=== PATIENT | female | born 1950 | race American Indian/Alaskan Native ===

== ENCOUNTER 2016-08-03 16:25 | Emergency (ER) | payer MEDICARE ==
[2016-08-03 17:13] LABS: Basophils % (Auto) 0.5 % (0.0-1.8); Eosinophils % (Auto) 1.3 % (0.0-4.3); Hematocrit 41.2 % (30.3-42.9); Hemoglobin 13.3 gm/dl (10.1-14.3); Mean Corpuscular HGB Conc 32 % (30-34); Mean Corpuscular Hemoglobin 27 pg (28-32); Mean Corpuscular Volume 85 fl (79-97); Platelet Count 159 K/mm3 (140-440); Red Blood Count 4.85 M/mm3 (3.65-5.03); Red Cell Distribution Width 13.2 % (13.2-15.2); White Blood Count 7.1 K/mm3 (4.5-11.0)
--- NOTE | 2016-08-03 17:16 | Emergency Department Report ---
Chief Complaint: Chest Pain Stated Complaint: CHEST PAIN Time Seen by Provider: 08/03/16 17:14 - HPI History of Present Illness: Patient here reports that she has chest pain to her midsternal area that does radiate into the left side of her chest and she has difficulty breathing, dizziness and fatigue. Patient is a diabetic and she said her blood sugar at home was 165 this morning. She has a history of CABG in 2013 with pacemaker placement. She is also has a history of stroke with left-sided weakness and neuropathy. She has a history of bronchitis. Patient also reported that she has congestive heart failure but she does not know the percentage of her EF. She has a history of depression. Patient also has a history of cardiac stents. Chest pain is 9 out of 10. - ROS Review of Systems: All systems are negative unless stated in HPI above. - Exam Vital Signs: Vital Signs 08/03/16 16:42 Temperature 97.6 F Pulse Rate 75 Respiratory 18 Rate O2 Sat by Pulse 97 Oximetry Physical Exam: General: This is a 65-year-old female well-nourished well-developed nontoxic in appearance. CV: S1, S2. Blood pressure is stable. Regular rate and rhythm. Lungs:CTAB. Shortness of breath and exertion noted. MSE screening note: Focused history and physical exam performed. Due to findings the following was ordered:see [facility] ED Medical Decision Making - Lab Data Result diagrams: 08/03/16 16:56 - Medical Decision Making Medical decision making: Patient seen by provider in triage area. Appropriate protocol activated and patient to main ED to be seen by physician. ED Disposition for MSE Condition: Stable
[2016-08-03 17:35] VITALS: BP 131/76
[2016-08-03 17:40] LABS: Chloride 99.1 mmol/L (98-107); Sodium 138 mmol/L (137-145)
[2016-08-03 17:41] LABS: BUN/Creatinine Ratio 28.88; Blood Urea Nitrogen 26 mg/dL (7-17); Calcium 9.2 mg/dL (8.4-10.2); Carbon Dioxide 25 mmol/L (22-30); Glucose 143 mg/dL (65-100)
[2016-08-03 17:43] LABS: Creatine Kinase MB 4.3 ng/mL (0.0-4.0)
[2016-08-03 18:14] LABS: Anion Gap 19 mmol/L
[2016-08-03 21:32] LABS: Bacteria,Urine 1+ /HPF (Negative); Bilirubin,Urine NEG (Negative); Blood,Urine NEG (Negative); Ketones,Urine NEG (Negative); Leukocyte Esterase,Urine NEG (Negative); Mucus,Urine FEW /HPF; Nitrite,Urine NEG (Negative); Protein,Urine <15 mg/dL mg/dL (Negative); RBC,Urine < 1.0 /HPF (0.0-6.0); Urobilinogen,Urine < 2.0 mg/dL (<2.0)
--- NOTE | 2016-08-04 00:11 | Admit Criteria Form ---
Admission Criteria Documentation: CARDIOLOGY GRG Clinical Indications for Admission to Inpatient Care ( Place 'X' for any and all applicable criteria): Hospital admission is needed for appropriate care of the patient because of ANY ONE of the following (1): [ ] I. Hemodynamic instability as indicated by ALL of the following (1)(2)(3) (4)(5) [ ]a) Vital signs or other findings not as expected for chronic patient condition or baseline [ ]b) Instability indicated by ANY ONE of the following: [ ]i) Hypotension [ ]ii) Symptomatic Tachycardia unresponsive to treatment ( e.g., analgesia, fluids, sedation as indicated) [ ]iii) Inadequate perfusion indicated by ANY ONE of the following: [ ] 1) Lactic acidosis (> 2 mmol/L) [ ] 2) New abnormal capillary refill (> 3 seconds) [ ] 3) Reduced urine output [ ] 4) New altered mental status [ ]iv) Orthostatic vital sign changes unresponsive to treatment (e.g., fluids) [ ]v) IV inotropic or vasopressor medication required to maintain adequate blood pressure or perfusion [ ] II. Severe heart failure as indicated by ANY ONE of the following(17)(18) [ ]a) Respiratory distress [ ]b) Hypotension [ ]c) Anasarca (refractory to outpatient therapy) [ ]d) Cardiac arrhythmias of immediate concern [ ]e) Myocardial ischemia [ ] III. Cardiac arrhythmias or findings of immediate concern indicated by ANY ONE of the following (19)(20): [ ] a) Heart rhythms that are inherently dangerous or unstable indicated by ANY ONE of the following (21)(22)(23): [ ] i) Resuscitated ventricular fibrillation or cardiac arrest [ ] ii) Ventricular escape rhythm [ ] iii) Sustained ventricular tachycardia (30 seconds or more of ventricular rhythm at greater than 100 beats per minute) [ ] iv) Nonsustained ventricular tachycardia and ANY ONE of the following: [ ] 1) Suspected cardiac ischemia as cause or consequence of ventricular tachycardia [ ] 2) In setting of acute myocarditis [ ] b) Unstable cardiac conduction defects indicated by ANY ONE of the following(23)(24)(25) [ ] i) Type II second-degree atrioventricular block [ ]ii) Third-degree atrioventricular block [ ]iii) New-onset left bundle branch block with suspected myocardial ischemia [ ]c) Any heart rhythm and ANY ONE of the following (21)(22)(26)(27) (28) [ ] i) Continuous long-term ECG monitoring needed (e.g., initiation of drug requiring monitoring for more than 24 hours) [ ] ii) Patient has automatic implanted cardioverter defibrillator that is repeatedly firing, malfunctioning, or in need of immediate adjustment of settings beyond the scope of ambulatory or observation care [ ]d) Heart rhythms of concern due to ANY ONE of the following: [ ] i) Hypotension [ ] ii) Respiratory distress [ ] iii) Association with other significant symptoms (e.g., bradycardia with syncope or ongoing dizziness, supraventricular tachycardia with chest pain (14)(15)(17) [ ] IV. Monitoring for cardiac contusion beyond the scope of observation care needed [A](30)(31)(32) [ ] V. Surgical or device complication (e.g., valve replacement complication , pacemaker dysfunction) (35)(41)(44)(45)(46) [ ] . Inpatient palliative care needed. [B](49) Also use Inpatient Palliative Care Criteria [ ] VII. Nonbacterial thrombotic (marantic) endocarditis (36)(43)(47)(48) [X ] VIII. Cardiology condition, symptom, or finding for which emergency and observation care has failed or are not considered appropriate. [ ] IX. Acute valvular disease requiring inpatient as indicated by ANY ONE of the following (41) [ ]a) Acute valvular regurgitation (42) [ ]b) Noninfectious valvulitis (43) [ ]c) Obstructive valve thrombosis [ ]d) Paravalvular leak [ ]e) Other significant valvular disorder remaining after emergency or observation level of care (as appropriate) [ ]X. Pericardial disease requiring inpatient treatment as indicated by ANY ONE of the following (33)(34)(35)(36)(37) [ ]a) Suspected tamponade (38)(39)(40) [ ]b) Hemopericardium [ ]c) Other significant pericardial disorder remaining after emergency or observation level of care (as appropriate) [ ] XI. Cardiac ischemia beyond scope of emergency and observation care. [ ] XII. Hypertension requiring inpatient treatment as indicated by ANY ONE of the following (6)(7)(8) [ ]a) SBP greater than 220 mm Hg or DBP greater than 120 mmHg despite treatment [ ]b) SBP greater than 140 mm Hg or DBP greater than 100 mm Hg with evidence of acute end organ damage as indicated by ANY ONE of the following [ ] i) Altered mental status [ ] ii) Acute renal failure as indicated by new onset of ANY ONE of the following (9)(10)(11)(12)(13) [ ]1) 3-fold rise in serum creatinine from baseline [ ]2) Serum creatinine greater than 4 mg/dL ( 354 micromoles/L) with acute rise greater than 0.5 mg/dL (44.2 micromoles/L) [ ]3) Reduction of more than 75% in estimated glomerular filtration rate from baseline [ ]4) Estimated glomerular filtration rate less than 35 mL/min/1.73m2 (0.59 mL/sec/1.73m2) in child up to 18 years of age [ ]5) Cessation of urine output indicated by ALL of the following [ ]A. Adequate volume status [ ]B. Inadequate urine output as indicated by ANY ONE of the following [ ]a. Urine output less than 0.3 mL/kg/hr for 24 hours [ ]b. Anuria (urine output less than 0.1 mL/kg/hr) for 12 hours [ ] iii) Aortic dissection [ ] iv) Myocardial Ischemia [ ] v) Left ventricular heart failure [ ]vi) Retinal Hemorrhage [ ]vii) Other significant finding [ ]c) Hypertension in child requiring inpatient treatment as indicated by ALL of the following(14)(15)(16) [ ] i) Outpatient treatment not effective, not available, or not appropriate [ ]ii) SBP or DBP greater than 95th percentile for age [ ]iii) Evidence of acute end organ damage as indicated by ANY ONE of the following [ ]1) Altered mental status [ ]2) Acute renal failure as indicated by new onset of ANY ONE of the following(9)(10)(11)(12)(13) [ ]A. 3-fold rise in serum creatinine from baseline [ ]B. Serum creatinine greater than 4 mg/dL (354 micromoles/L) with acute rise greater than 0.5 mg/dL (44.2 micromoles/L) [ ]C. Reduction of more than 75% in estimated glomerular filtration rate from baseline [ ]D. Estimated glomerular filtration rate less than 35 mL/min/1.73m2 (0.59 mL/sec/1.73m2) in child up to 18 years of age [ ]E. Cessation of urine output indicated by ALL of the following [ ]a. Adequate volume status [ ]b. Inadequate urine output as indicated by ANY ONE of the following [ ]i) Urine output less than 0.3 mL/kg/hr for 24 hours [ ]ii) Anuria ( urine output less than 0.1 mL/kg/hr) for 12 hours [ ]3) Severe headache [ ]4) Visual disturbance [ ]5) Retinal hemorrhage [ ]6) Other significant finding [ ]XIII. Complications of transplanted heart indicated by ANY ONE of the following(61): [ ]a) Acute graft rejection requiring inpatient management (eg, intravenous immunosuppression)(62)(63) [ ]b) Acute graft heart failure indicated by ANY ONE of the following(64): [ ]i) Hemodynamic instability [ ]ii) Cardiac arrhythmias of immediate concern [ ]iii) Pulmonary edema that is very severe (eg, mechanical ventilation needed, imminent or likely, need for 100% oxygen to keep oxygen saturation above 90%) [ ]iv) Pulmonary edema that is persistent as indicated by ALL of the following: [ ]1) New need for oxygen therapy to keep oxygen saturation above 90% (or increased FiO2 need from baseline) [ ]2) Has not improved sufficiently with emergency department or observation care IV diuretics or other heart failure treatments[E] [ ]v) Altered mental status that is severe or persistent [ ]vi) Increased creatinine (new on laboratory test) with reduction of more than 50% in estimated glomerular filtration rate from baseline [ ]vii) Progressively (ongoing) rising creatinine (known from past laboratory test) with reduction of more than 25% in estimated glomerular filtration rate from baseline [ ]viii) Acute renal failure [ ]ix) Acute peripheral ischemia (eg, examination shows pulseless, cool, mottled, or cyanotic extremity) [ ]x) Pulmonary artery catheter monitoring needed [ ]xi) Other sign or symptom of heart failure requiring inpatient treatment (ie, too severe or not responsive to outpatient and observation care treatment) [ ]c) Infection requiring inpatient management (eg, Hemodynamic instability, need for intravenous antimicrobial treatment)(66)(67)(68)(69)(70) [ ]d) Cardiac allograft vasculopathy requiring inpatient management ( eg evidence of cardiac ischemia)(71) [ ]e) Other complication of transplanted heart (eg, stroke, severe pulmonary hypertension, severe valvular dysfunction) requiring inpatient management(72) The original [facility] content created by [employer] has been revised. The portions of the content which have been revised are identified through the use of italic text or in bold, and [facility] has neither reviewed nor approved the modified material. All other unmodified content is copyright [email or web address]. Please see references footnoted in the original [email or web address] edition 2016 Admission Criteria Met: Pending
--- NOTE | 2016-08-04 07:52 | ED Elopement Review ---
ED Pt Elopement review - Results review Lab results: Laboratory Tests 08/03/16 08/03/16 08/03/16 16:56 16:56 16:56 WBC 7.1 RBC 4.85 Hgb 13.3 Hct 41.2 MCV 85 MCH 27 L MCHC 32 RDW 13.2 Plt Count 159 Lymph % (Auto) 34.1 [place] % (Auto) 9.7 H Eos % (Auto) 1.3 Baso % (Auto) 0.5 Lymph # 2.4 [place] # 0.7 Eos # 0.1 Baso # 0.0 Seg Neutrophils % 54.4 Seg Neutrophils # 3.9 Sodium 138 Potassium 5.0 Chloride 99.1 Carbon Dioxide 25 Anion Gap 19 BUN 26 H Creatinine 0.9 Estimated GFR > 60 BUN/Creatinine Ratio 28.88 Glucose 143 H Calcium 9.2 Total Creatine Kinase 113 CK-MB (CK-2) 4.3 H CK-MB (CK-2) Rel Index 3.8 Troponin T < 0.010 NT-Pro-B Natriuret Pep Urine Color Urine Turbidity Urine pH Ur Specific [place] Urine Protein Urine Glucose (UA) Urine Ketones Urine Blood Urine Nitrite Urine Bilirubin Urine Urobilinogen Ur Leukocyte Esterase Urine WBC (Auto) Urine RBC (Auto) U Epithel Cells (Auto) Urine Bacteria (Auto) Hyaline Casts Urine Mucus 08/03/16 08/03/16 08/03/16 17:36 19:44 20:56 WBC RBC Hgb Hct MCV MCH MCHC RDW Plt Count Lymph % (Auto) [place] % (Auto) Eos % (Auto) Baso % (Auto) Lymph # [place] # Eos # Baso # Seg Neutrophils % Seg Neutrophils # Sodium Potassium Chloride Carbon Dioxide Anion Gap BUN Creatinine Estimated GFR BUN/Creatinine Ratio Glucose Calcium Total Creatine Kinase CK-MB (CK-2) CK-MB (CK-2) Rel Index Troponin T < 0.010 NT-Pro-B Natriuret Pep 173.6 Urine Color Yellow Urine Turbidity Clear Urine pH 5.0 Ur Specific [place] 1.010 Urine Protein <15 mg/dl Urine Glucose (UA) Neg Urine Ketones Neg Urine Blood Neg Urine Nitrite Neg Urine Bilirubin Neg Urine Urobilinogen < 2.0 Ur Leukocyte Esterase Neg Urine WBC (Auto) 1.0 Urine RBC (Auto) < 1.0 U Epithel Cells (Auto) 3.0 Urine Bacteria (Auto) 1+ Hyaline Casts 14 Urine Mucus Few - Call Back decision Pt Call Back Decision: Pt to F/U with PMD
--- NOTE | 2016-08-04 08:16 | XRay Report ---
Chest 2 views. Findings: The heart and lungs reveal no acute findings or interval changes since January 19, 2016. A cardiac pacemaker is again noted unchanged. No pleural fluid is seen. Impression: No acute findings.
== END 2016-08-03 20:16 | disposition left against medical advice (07) ==
LOC: ED 16:25
DX: R07.89 Other chest pain (principal); R06.00 Dyspnea, unspecified; R42 Dizziness and giddiness; R53.83 Other fatigue; F32.9 Major depressive disorder, single episode, unspecified; E11.9 Type 2 diabetes mellitus without complications; I50.9 Heart failure, unspecified; Z53.21 Procedure and treatment not carried out due to patient leaving prior to being seen by health care provider
CPT/HCPCS: 36415; 71020; 80048; 81001; 82550; 82553; 83880; 84484; 85025; 93005; 93010

== ENCOUNTER 2016-08-18 12:49 | Outpatient (CLI) | payer MEDICARE ==
--- NOTE | 2016-08-18 14:06 | Mammography Report ---
Bilateral mammogram: No previous studies available. CAD study utilized. Findings: Predominance of adipose tissue bilaterally. No distinct mass. Benign calcifications bilaterally. Normal axilla. Focal asymmetry upper outer right breast. Impression: Focal asymmetry upper outer right breast. Comparison with previous studies is advised. If previous studies are not available spot magnification views and sonographic examination recommended for further evaluation.
== END 2016-08-18 12:50 | disposition home or self-care (01) ==
LOC: MAMMO 12:49
PROVIDERS: ATTEND Internal Medicine
DX: Z12.31 Encounter for screening mammogram for malignant neoplasm of breast (principal)
CPT/HCPCS: 77067; G0202

== ENCOUNTER 2016-10-07 01:33 | Inpatient (IN) | payer MEDICARE ==
[2016-10-07] MEDS ORDERED: TYLENOL PO ONE (03:40)
--- NOTE | 2016-10-07 03:59 | Emergency Department Report ---
HPI - HPI HPI: The patient is a 66-year-old female with a history of diabetes, CHF, bilateral lower leg wounds, and who presents for evaluation of generalized weakness and headache. The patient reports that she fail at approximately 7 PM earlier tonight, 8 hours prior to my evaluation. She complains of generalized aching headache since her fall, 03/05 in severity, exacerbated with movement of the head. She also complains of generalized weakness and lightheadedness for the past 2 days, exacerbated with standing up and activity, improved with rest, moderate in severity. The patient has a tertiary complaint of worsening shortness of breath from baseline also for the past one week, moderate in severity, exacerbated with physical activity, and associated with bilateral lower leg swelling. The patient denies fever, head injury, headache, neck pain, neck stiffness, vision or hearing changes, smell or taste changes, paresthesias , facial drooping, slurred speech, seizure-like activity, urine or bowel incontinence or retention, or other focal neurological deficit. <SANDRA ORELLANA - Last Filed: 10/07/16 05:27> <ISMA CHRISTENSEN - Last Filed: 10/07/16 07:14> - General Chief Complaint: Dizziness Time Seen by Provider: 10/07/16 03:39 ED Past Medical Hx - Past Medical History Previous Medical History?: Yes Hx Hypertension: Yes Hx CVA: Yes (2009,2010 ischemic) Hx Heart Attack/AMI: Yes (CABG 2012,[employer]) Hx Diabetes: Yes Hx Psychiatric Treatment: Yes (depression) Hx Asthma: Yes (bronchitis) Additional medical history: left-sided weakness,Neuropathy - Surgical History Hx Open Heart Surgery: Yes Hx Pacemaker: Yes Additional Surgical History: hysterectomy, stents - Social History Smoking Status: Current Every Day Smoker Substance Use Type: Alcohol <SANDRA ORELLANA - Last Filed: 10/07/16 05:27> <ISMA CHRISTENSEN - Last Filed: 10/07/16 07:14> - Medications Home Medications: Home Medications Medication Instructions Recorded Confirmed Last Taken Type Clindamycin [Clindamycin CAP] 300 mg PO Q8H #30 cap 01/19/16 Unknown Rx HYDROcodone/APAP 5-325 [Atlas 1 each PO Q6HR PRN #7 tablet 01/19/16 Unknown Rx 5/325] Linagliptin [Tradjenta] 5 mg PO QDAY 01/19/16 01/19/16 01/18/16 History Lisinopril [Zestril] 20 mg PO QDAY 01/19/16 01/19/16 01/18/16 History Lisinopril/Hydrochlorothiazide 1 tab PO QDAY #30 tablet 01/19/16 Unknown Rx [Zestoretic 10-12.5 mg] ED Review of Systems ROS: Stated complaint: WEAK, DIZZY Other details as noted in HPI Constitutional: denies: fever; reports weakness and lightheadedness ENT: denies: throat or neck pain Respiratory: denies: cough reports shortness of breath Cardiovascular: denies: chest pain Endocrine: denies unexplained weight loss or gain Gastrointestinal: denies: abdominal pain, nausea Genitourinary: denies: dysuria Musculoskeletal: denies: leg swelling Skin: denies: rash Neurological: reports: headache Hematological/Lymphatic: denies: easy bleeding or easy bruising Psych: denies sadness or hopelessness <SANDRA ORELLANA - Last Filed: 10/07/16 05:27> ROS: Stated complaint: WEAK, DIZZY Other details as noted in HPI <ISMA CHRISTENSEN - Last Filed: 10/07/16 07:14> Physical Exam - Physical Exam Vital Signs: Vital Signs 10/07/16 10/07/16 01:49 01:53 Temperature 98 F 98.8 F Pulse Rate 75 71 Respiratory 18 Rate Blood Pressure 138/75 Blood Pressure 154/76 [Right] O2 Sat by Pulse 100 100 Oximetry Physical Exam: General: well-nourished, well-developed, no acute distress Head: Normocephalic, atraumatic Eyes: normal sclera, EOMI, PERRL, no nystagmus ENT: Mucous membranes are pale and dry Neck: No neck stiffness, no cervical adenopathy Respiratory: Breath sounds equal bilaterally, no wheezing, rales, or rhonchi Cardio: S1 and S2 present, no murmurs, rubs, gallops, capillary refill is delayed Abdomen: Normoactive bowel sounds, soft abdomen, no tenderness Chest WALL/Back: No tenderness to palpation of the chest wall, no CVA tenderness with percussion Musc: 1+ pitting edema in the bilateral lower extremities, left ankle edema worse compared to right ankle (baseline for patient per daughter present in room ) Skin: No rash Neuro: Alert oriented 3, no facial drooping, CN II through XII grossly intact, normal speech, no pronator drift, no obvious gross sensation or motor deficit in the arms or legs, reflexes 2+ symmetric on DTR testing, no obvious coordination deficit with finger to nose testing, no obvious neuro deficits appreciated Psych: Normal affect <SADNRA ORELLANA P - Last Filed: 10/07/16 05:27> - Physical Exam Vital Signs: Vital Signs 10/07/16 10/07/16 10/07/16 01:49 01:53 04:53 Temperature 98 F 98.8 F 98 F Pulse Rate 75 71 65 Respiratory 18 18 Rate Blood Pressure 138/75 Blood Pressure 154/76 135/86 [Right] O2 Sat by Pulse 100 100 97 Oximetry 10/07/16 06:12 Temperature Pulse Rate Respiratory Rate Blood Pressure Blood Pressure 152/66 [Right] O2 Sat by Pulse Oximetry <ISMA CHRISTENSEN - Last Filed: 10/07/16 07:14> ED Course Vital Signs 10/07/16 10/07/16 01:49 01:53 Temperature 98 F 98.8 F Pulse Rate 75 71 Respiratory 18 Rate Blood Pressure 138/75 Blood Pressure 154/76 [Right] O2 Sat by Pulse 100 100 Oximetry <SANDRA ORELLANA P - Last Filed: 10/07/16 05:27> Vital Signs 10/07/16 10/07/16 10/07/16 01:49 01:53 04:53 Temperature 98 F 98.8 F 98 F Pulse Rate 75 71 65 Respiratory 18 18 Rate Blood Pressure 138/75 Blood Pressure 154/76 135/86 [Right] O2 Sat by Pulse 100 100 97 Oximetry 10/07/16 06:12 Temperature Pulse Rate Respiratory Rate Blood Pressure Blood Pressure 152/66 [Right] O2 Sat by Pulse Oximetry <ISMA CHRISTENSEN - Last Filed: 10/07/16 07:14> ED Medical Decision Making - Lab Data Result diagrams: 10/07/16 03:44 10/07/16 03:44 - Medical Decision Making The patient was seen and examined by myself. The patient is placed on a monitor technician and continuous pulse ox. On initial evaluation, the patient was found to be in no distress. Evaluation orders were placed. The patient is given 1 L normal saline fluid bolus for treatment of dehydration. The patient is given a tablet of Tylenol for headache. EKG is unremarkable. X-ray of the chest is negative. Lab results are grossly unrevealing. Urinalysis is pending. CT scan the head is pending. The patient signed out to the oncoming morning shift physician Dr. Dick, who agrees to follow-up on UA result, and CT scan of the head, and arrange for ultimate disposition. <SANDRA ORELLANA - Last Filed: 10/07/16 05:27> - Lab Data Result diagrams: 10/07/16 03:44 10/07/16 03:44 <ISMA CHRISTENSEN - Last Filed: 10/07/16 07:14> Critical care attestation.: If time is entered above; I have spent that time in minutes in the direct care of this critically ill patient, excluding procedure time. <SANDRA ORELLANA - Last Filed: 10/07/16 05:27> Critical care attestation.: If time is entered above; I have spent that time in minutes in the direct care of this critically ill patient, excluding procedure time. <ISMA CHRISTENSEN - Last Filed: 10/07/16 07:14> ED Disposition Time of Disposition: 04:02 <SANDRA ORELLANA - Last Filed: 10/07/16 05:27> Is pt being admited?: Yes Does the pt Need Aspirin: Yes Time of Disposition: 07:14 (admit to the hospitalists) <ISMA CHRISTENSEN - Last Filed: 10/07/16 07:14> Clinical Impression: Left hemiparesis, Dehydration Disposition: OP ADMITTED IP TO THIS HOSP Condition: Fair Referrals: PRIMARY CARE,MD [Primary Care Provider] - 3-5 Days
[2016-10-07 04:16] LABS: Basophils % (Auto) 0.4 % (0.0-1.8); Eosinophils % (Auto) 1.2 % (0.0-4.3); Hematocrit 40.5 % (30.3-42.9); Hemoglobin 12.9 gm/dl (10.1-14.3); Mean Corpuscular HGB Conc 32 % (30-34); Mean Corpuscular Hemoglobin 27 pg (28-32); Mean Corpuscular Volume 84 fl (79-97); Platelet Count 151 K/mm3 (140-440); Red Cell Distribution Width 13.7 % (13.2-15.2); White Blood Count 8.2 K/mm3 (4.5-11.0)
[2016-10-07 04:27] LABS: Alanine Aminotransferase 42 units/L (7-56); Albumin 3.6 g/dL (3.9-5); Albumin/Globulin Ratio 0.9 %; Alkaline Phosphatase 154 units/L (35-129); Anion Gap 16 mmol/L; BUN/Creatinine Ratio 29.09; Bilirubin,Total 0.2 mg/dL (0.1-1.2); Blood Urea Nitrogen 32 mg/dL (7-17); Carbon Dioxide 26 mmol/L (22-30); Chloride 102.8 mmol/L (98-107); Glucose 101 mg/dL (65-100); Lipase 49 units/L (13-60); Potassium 4.2 mmol/L (3.6-5.0); Sodium 141 mmol/L (137-145); Total Protein 7.5 g/dL (6.3-8.2)
[2016-10-07] MEDS ORDERED: NACL 0.9% 1000 ML 1,000 ML IV ONE (05:03)
[2016-10-07 05:54] LABS: Bilirubin,Urine NEG (Negative); Blood,Urine NEG (Negative); Ketones,Urine NEG (Negative); Leukocyte Esterase,Urine NEG (Negative); Mucus,Urine FEW /HPF; Nitrite,Urine NEG (Negative); Protein,Urine <15 mg/dL mg/dL (Negative); RBC,Urine < 1.0 /HPF (0.0-6.0); Urobilinogen,Urine < 2.0 mg/dL (<2.0); WBC,Urine < 1.0 /HPF (0.0-6.0)
--- NOTE | 2016-10-07 06:38 | Cat Scan Report ---
FINAL REPORT PROCEDURE: CT HEAD/BRAIN WO CON TECHNIQUE: Computerized tomography of the head was performed without contrast material. HISTORY: headache COMPARISON: 12/20/2015 FINDINGS: Skull and scalp: Normal. Paranasal sinuses: Normal. Ventricles and subarachnoid spaces: There is moderate central and cortical atrophy. There is no hydrocephalus.. Cerebrum: No evidence of hemorrhage, acute infarction or mass . Cerebellum and brainstem: No evidence of hemorrhage, acute infarction or mass. There is chronic deep white matter ischemic gliosis. Vasculature: Normal. Comments: None. IMPRESSION: There are chronic involutional changes. There is no hemorrhage, edema, mass, mass effect or midline shift.
--- NOTE | 2016-10-07 07:13 | Emergency Department Report ---
Blank Doc - Documentation Documentation: Patient signed out to me by Dr. Villanueva. CT head and urinalysis showed no acute process. Upon evaluation of the patient patient's daughter states for the last several days patient has been unable to walk. Normally the patient walks with a cane or a walker. Now patient has to be held up. Patient states she thinks she may have had a worsening of her left-sided weakness from her previous stroke. Patient has history of congestive heart failure and has a defibrillator in. Patient has had left leg swelling for the last several days as well. According to her daughter this usually subsides after day or 2 but has not subsided. Attempts by myself with the aid of a nurse to stand the patient was unsuccessful. Patient unable to lift her left leg off the bed. We'll admit the patient to the hospitalist service and obtain a Doppler of her left lower extremity. Concerned that she may have had another CVA.
[2016-10-07] MEDS ORDERED: ASPIRIN PO ONE (07:14)
--- NOTE | 2016-10-07 07:26 | XRay Report ---
AP CHEST: HISTORY: chest pain Compared to 08/03/16. The lungs are clear. Normal heart and mediastinal structures. Sternal fixation device and 2-lead pacemaker device are unchanged. IMPRESSION: No acute cardiopulmonary process.
--- NOTE | 2016-10-07 07:36 | Admit Criteria Form ---
Admission Criteria Documentation: NEUROLOGY GRG Clinical Indications for Admission to Inpatient Care (Place ' X' for any and all applicable criteria): Hospital admission is needed for appropriate care of the patient because of ANY ONE of the following: [ ]I. New-onset or worsening altered mental status remaining after emergency or observation level care (as appropriate) (9)(10)(11) [ ]II. Severe PASSENGER RELATIONS REPRESENTATIVE infections or inflammatory conditions, including ANY ONE of the following(1)(2)(3): [ ]a) Intracranial abscess [ ]b) Spinal abscess or myelitis [ ]c) Tuberculous or other nonbacterial, nonviral PASSENGER RELATIONS REPRESENTATIVE infection(8) [ ]III. Encephalitis(1)(2)(3) [ ]IV. Status epilepticus or repetitive seizures not controlled with emergent treatment [A] (7)(8) [ ]V. Transient alteration in consciousness with high-risk etiology; examples include (12)(13): [ ]a) Cardiovascular source [ ]b) Cataplexy [ ]. Cerebral aneurysm requiring ANY ONE of the following(14): [ ]a) IV antihypertensives or vasoactive agents [ ]b) Sedation and analgesia for suspected leak [ ]c) Need for external ventricular drainage and cerebral perfusion pressure monitoring [ ]d) Emergent evaluation to determine need for surgical clipping or endovascular coiling by interventional radiology. If surgery is required ( Also use Craniotomy, Supratentorial, for Surgery of Bleeding Intracranial Aneurysm (for bleeding aneurysm) or Craniotomy, Supratentorial (for nonbleeding aneurysm) as appropriate. [ ]VII. Altered mental status that is severe or persistent(16) [ ]VIII New-onset severe neurologic findings requiring inpatient care; examples include: [ ]a) Papilledema [ ]b) Cerebral edema [ ]c) Mass effect on imaging [X]IX. New-onset severe neurologic symptom requiring inpatient care indicated by ANY ONE of the following: [ ]a) Aphasia(15) [ ]b) Weakness (grade 3 or less) [ ]c) Paralysis (eg, hemiplegia) [ ]d) Spasticity(16) [ ]e) Ataxia(17) [ ]f) Amnesia(18) [ ]g) Involuntary movements(19) [ ]h) Vertigo [X]i) Other severe neurologic symptom not treatable at alternative level of care (eg, observation care) [ ]X. Guillain-[place] syndrome(20) [ ]XI. Myasthenia gravis crisis or inpatient monitoring need as indicated by ANY ONE of the following(21): [ ]a) Inadequate airway protection [ ]b) Respiratory insufficiency requiring intubation or inpatient. monitoring [ ]c) Progressive dysphagia with failure to thrive [ ]d) Intensive treatment (eg, course of plasmapheresis) with inadequate outpatient situation to monitor patients status [ ]XII. Multiple sclerosis or other acute demyelinating disease requiring inpatient care as indicated by ANY ONE of the following (22)(23): [ ]a) Acute severe deterioration requiring inpatient treatment (eg, IV steroids, plasmapheresis, close observation) [ ]b) Acute complication requiring inpatient care (eg, sepsis, severe decubitus, aspiration) [ ]XIII. Intracranial hypertension (eg, pseudotumor cerebri) requiring inpatient care (eg, acute visual loss, inadequate oral intake) (24) [ ]XIV.Parkinson disease requiring inpatient care (Also use Optimal Recovery Care Criteria or General Recovery Criteria as appropriate) indicated by ANY ONE of the following(25): [ ]a) Infection (eg, aspiration pneumonia) not treatable at alternative level of care [ ]b) Volume depletion not responsive to emergency and observation care treatment (as appropriate) [ ]c) Life-threatening agitation or psychotic behavior not treatable on emergency, observation care, or alternative level (eg, residential) basis [ ]d) Severe medication withdrawal effects (eg, freezing, neuroleptic malignant syndrome) not responsive to emergency and observation care treatment (as appropriate) [ ]e) Other severe manifestation not treatable at alternative level of care [ ]XV.Amyotrophic lateral sclerosis with inpatient care needs as indicated by ANY ONE of the following(26): [ ]a) Acute complications requiring inpatient care (Use Optimal Recovery Care Criteria or General Recovery Criteria as appropriate); examples include: [ ]i) Aspiration pneumonia [ ]ii) Sepsis [ ]b) Dehydration or hypovolemia (not responsive to emergency and observation care treatment as appropriate) AND artificial support desired [ ]c) Inadequate airway protection AND artificial support desired [ ]d) Severe ventilatory insufficiency AND artificial support desired [ ]XVI.Severe myopathy, neuropathy, or other neuromuscular disease as indicated by ANY ONE of the following: [ ]a) New-onset severe diffuse weakness (eg, strength 3/5 or less) [ ]b) Severe dysphagia [ ]c) Dyspnea at rest or with minimal exertion (new) [ ]d) Inadequate airway protection [ ]e) Inadequate ventilation as indicated by ANY ONE of the following : [ ]i) Partial pressure of carbon dioxide greater than 44 mm Hg (5.9 kPa) (new) [ ]ii) Reduced peak expiratory flow rate (new) [ ]iii) Vital capacity less than 50% of predicted ( less than 15 mL/kg) [ ]iv) Peak inspiratory force less negative than -30 cm H20 (-2942 Pa) [ ]XVII.Complications of congenital or degenerative disease (eg, infection, seizures, dehydration, injury) not responsive to emergency and observation care treatment (as appropriate ) [C](16)(29)(30) [ ]XVIII.Suspected or confirmed nerve or muscle toxic injury, including ANY ONE of the following: [ ]a) Rhabdomyolysis(31) [ ]b) Botulism(32) [ ]c) Other severe toxin-induced sign or symptom [ ]XIX. Neurologic trauma requiring inpatient treatment (medical) indicated by ANY ONE of the following(33)(34): [ ]a) Vital signs or neurologic signs more frequently than every 4 hours [ ]b) Hyperosmolar therapy [ ]c) Respiratory monitoring [ ]d) Intracranial pressure monitoring and treatment [ ]e) Stabilization and immobilization device placement (eg, braces, body jacket) [ ]f) Intubation & mechanical ventilation for airway protection or therapeutic hyperventilation [ ]g) Other treatment or monitoring needed that requires inpatient level of care [ ]XX.Complications of neurologic devices (eg, ventricular shunt, neurostimulator) requiring ANY ONE of the following(35)(36): [ ]a) IV antibiotics with monitoring while awaiting culture results [ ]b) Monitoring for hydrocephalus [ ]XXI Vasculitis with ANY ONE of the following(4)(5): [ ]a) Altered mental status [ ]b) Psychosis [ ]c) Seizures [ ]XXII. Neurology condition and ALL of the following: [ ]a) Symptom or finding for which emergency and observation care have failed or are not considered appropriate (Use General Criteria: Observation Care as appropriate) [ ]b) Presence of ANY ONE of the following: [ ]i) A General Admission Criteria [ ]ii A Pediatric General Admission Criteria The original [facility] content created by [facility] has been revised. The portions of the content which have been revised are identified through the use of italic text or in bold, and [facility] has neither reviewed nor approved the modified material. All other unmodified content is copyright [facility] Please see references footnoted in the original [facility] edition 2016 Admission Criteria Met: Yes
[2016-10-07] MEDS ORDERED: PROVENTIL IH PRN (07:41)
[2016-10-07] MEDS ORDERED: MILK OF MAGNESIA PO PRN (07:41)
[2016-10-07] MEDS ORDERED: TYLENOL PO PRN ×2 (07:41)
[2016-10-07] MEDS ORDERED: PHENERGAN PR PRN (07:41)
[2016-10-07] MEDS ORDERED: DULCOLAX PR PRN (07:41)
[2016-10-07] MEDS ORDERED: SODIUM CHLORIDE FLUSH SYRINGE 10 ML IV PRN (07:41)
[2016-10-07] MEDS ORDERED: D50W (25GM) IV PRN (07:41)
[2016-10-07] MEDS ORDERED: ZOFRAN IV PRN (07:41)
[2016-10-07] MEDS ORDERED: ASPIRIN PO SCH ×2 (10:00→14:20)
[2016-10-07] MEDS: DUONEB 0.5 MG-3 MG/3 ML SOLN IH SCH ×3 (10:40→19:55)
[2016-10-07] MEDS: PEPCID IV SCH ×2 (11:23→22:33)
[2016-10-07] MEDS: HEPARIN SUB-Q SCH ×2 (11:28→22:33)
--- NOTE | 2016-10-07 13:04 | Consultation ---
History of Present Illness Consult date: 10/07/16 Requesting physician: VELMA BARBOSA Reason for Consult: ? TIA/stroke Chief complaint: falls History of present illness: 66 YO F Hx stroke x 2 in 2009 and 2013 residual L hemiparesis requiring walker who p/w falls in last 2 days. She affirms greater baseline L sided but also diffuse generalized weakness. Sx are constant.There are no clear aggravating, relieving or temporal factors. Severity was enough to cause her inability to transfer from bed to walker safely-causing falls. Past History Past Medical History: diabetes, hypertension, stroke Past Surgical History: No surgical history Social history: no significant social history, single, lives with family. denies: smoking, alcohol abuse, prescription drug abuse, IV drug use Family history: no significant family history Medications and Allergies Allergies Allergy/AdvReac Type Severity Reaction Status Date / Time No Known Allergies Allergy Verified 01/18/16 23:49 Home Medications Medication Instructions Recorded Confirmed Last Taken Type Linagliptin [Tradjenta] 5 mg PO QDAY 01/19/16 10/07/16 01/18/16 History Lisinopril/Hydrochlorothiazide 1 tab PO QDAY #30 tablet 01/19/16 10/07/16 Unknown Rx [Zestoretic 10-12.5 mg] Active Meds: Active Medications Acetaminophen (Tylenol) 650 mg PO Q4H PRN PRN Reason: Pain, Mild (1-3) Albuterol (Proventil) 2.5 mg IH Q3HRT PRN PRN Reason: Shortness Of Breath Albuterol/Ipratropium (Duoneb 0.5 Mg-3 Mg/3 Ml Soln) 1 ampul IH Q6HRT [facility] Last Admin: 10/07/16 10:40 Dose: 1 ampul Aspirin (Aspirin) 325 mg PO QDAY [facility] Last Admin: 10/07/16 11:23 Dose: 325 mg Bisacodyl (Dulcolax) 10 mg VA QDAY PRN PRN Reason: Constipation unrelieved by MOM Dextrose (D50w (25gm)) 50 ml IV PRN PRN PRN Reason: Hypoglycemia Famotidine (Pepcid) 10 mg IV BID [facility] Last Admin: 10/07/16 11:23 Dose: 10 mg Heparin Sodium (Porcine) (Heparin) 5,000 unit SUB-Q Q12HR [facility] Last Admin: 10/07/16 11:28 Dose: 5,000 unit Insulin Aspart (Novolog) 0 units SUB-Q ACHS PRAVIN PRN Reason: Protocol Magnesium Hydroxide (Milk Of Magnesia) 30 ml PO Q4H PRN PRN Reason: Constipation Metoclopramide HCl (Reglan) 10 mg IV Q6H PRN PRN Reason: Nausea And Vomiting Ondansetron HCl (Zofran) 4 mg IV Q8H PRN PRN Reason: N/V unrelieved by Reglan Oxycodone/Acetaminophen (Percocet 5/325) 1 tab PO Q6H PRN PRN Reason: Pain, Moderate (4-6) Promethazine HCl (Phenergan) 25 mg VA Q6H PRN PRN Reason: Nausea And Vomiting Simvastatin (Zocor) 20 mg PO QHS [facility] Sodium Chloride (Sodium Chloride Flush Syringe 10 Ml) 10 ml IV PRN PRN PRN Reason: LINE FLUSH Zolpidem Tartrate (Ambien) 5 mg PO QHS PRN PRN Reason: Insomnia Review of Systems Constitutional: fatigue, weakness, malaise, lethargy Neurological: weakness, numbness, balance difficulties, gait dysfunction, motor disturbance Physical Examination - Vital Signs Vital Signs: Vital Signs Temp Pulse BP Pulse Ox 98 F 75 138/75 100 10/07/16 01:49 10/07/16 01:49 10/07/16 01:49 10/07/16 01:49 - Constitutional General appearance: comfortable - EENT EENT: Present: ATNC, PERRL, hearing intact, vision intact - Respiratory Respiratory: Present: chest non-tender, normal breath sounds, no respiratory distress - Cardiovascular Cardiovascular: Present: regular rate Extremities: Present: no peripheral edema bilatateraly, no clubbing, cyanosis, no inflammation, no ischemia or petechiae - Gastrointestinal Gastrointestinal: Present: soft, non-distended - Integumentary Integumentary: Present: normal - Neurologic Cranial nerve examination: PERRL, EOMI, VFF, V1/V2/V3 grossly intact, tongue midline, intact, intact shoulder shrug, intact cough reflex, Intact Vestibulo- ocular r, intact corneal reflex, facial droop (on L) Speech examination: intact Sensorimotor examination: pronator drift, hemiparesis (on L), rigidity (on L) Motor examination - right side: 5/5: biceps, triceps, wrist flexion, wrist extension, aircraft part assembler, hip flexors, knee extensors, dorsiflexion, toe extension (EHL) , plantarflexion Motor examination - left side: 4/5: biceps, triceps, wrist flexion, wrist extension, aircraft part assembler, hip flexors, knee extensors, dorsiflexion, toe extension (EHL) , plantarflexion Detailed sensory examination: light touch (diminished on L), temperature ( diminsihed on L) Reflex and gait examination: Babinski's sign (on L) Reflexes: 3+: ankle (on L), bicep, knee, tricep - Musculoskeletal Musculoskeletal: Present: no fluid collection, no pain, normal range of motion - Psychiatric Psychiatric: Present: mood/affect appropriate, cooperative Results - Laboratory Findings CBC and BMP: 10/07/16 03:44 10/07/16 03:44 Assessment and Plan 66 YO F Hx HTN/DM2/stroke x 2 in 2009 and 2013 on ASA w/ residual L hemiparesis requiring walker who p/w diffuse generalized weakness, exacerbated L spastic hemiparesis c/b falls in last 2 days. I have been asked to eval for TIA but I suspect re-crudescence of prior stroke sx from some possible toxic metabolic infectious etiology. Plan and Recommendation: 1. No indication for pharmacologic thrombolysis with IV tPA or mechanical thrombectomy due to last known normal > 6 hrs from presentation. Current NIHSS 4 2. Telemetry bed w/ Q4 hour neuro checks 3. Brain imaging: MRI Brain w/o Stephan Stroke Protocol 4. Check serum TSH/Vit B12/Ammonia and correct as necessary 5. Cont Infectious work up/medical management for UTI, PNA, cellulitis, bacteremia, etc. 4. Avoid hyponatremia, hypo/hyper-calcemia, hypo/hyperglycemia, acidosis, hypoxia/hypoxemia, hypercarbia/hypercapnia 6. Avoid institution of any psychoactive medications (e.g. antihistamines, anticholinergics, BZD, hypnotics, opiates) as able unless low doses of low potency antipsychotic needed for behavioral issues complicating medical care 7. If MRI Brain confirms infarct: A. Vascular Imaging: MRA Head w/o Stephan & MRA Neck w/ Stephan Stroke Protocol OR CTA Head/Neck w/ Contrast OR Bilateral Carotid Duplex U/S B. TTE to eval for possible cardiac source of embolism C. Serum Labs: HgA1c, LDL 8. Permissive HTN for first 24-48 hours: HOB < 30 degrees, isotonic IVF prn and refrain from active Tx of HTN unless BP > 185/105 or pt develops malignant HTN. Can lower MAPs by 10-15% daily to reach goal SBP 120-160 after permissive HTN period or if MRI neg for infarction. 9. Secondary stroke prevention: ASA 325mg Daily x 1 then 81mg QDay & upgrade to full dose statin therapy (Crestor 20mg or 40mg OR Lipitor 40mg or 80mg Daily OR Zocor 40mg QDay) for goal LDL < 70. No firm indication at this point for therapeutic anticoagulation as pt has not had AFib captured on telemetry monitoring. If MRI neg for infarct there is no neurologic indication for ASA/ statin change 10. F/E/N: isotonic IVF prn, prn replete, oral diet as pt passed bedside speech /swallow eval 11. DVT Prophylaxis 12. Stroke education, PT/OT/Speech Therapy consults, CM evaluation 13. For any changes in neurologic status, pls obtain STAT CTH w/o contrast and call neurolog
--- NOTE | 2016-10-07 14:03 | History and Physical Report ---
History of Present Illness Date of examination: 10/07/16 Date of admission: 10/07/16 07:41 Chief complaint: Worsening left lower extremity weakness, fall. History of present illness: Patient is a pleasant 66-year-old female with history of diabetes mellitus, congestive heart failure which is stable at this time, bilateral lower legs wounds. Also history of stroke 2 in 2009 and 2013 residual left hemiparesis ambulates with a walker who presents to the ER with complaint of worsening weakness now affect and bilateral extremities. Had 2 episodes of fall in the last 2 days. Much different from her baseline. She denies any fever, nausea, vomiting, diarrhea she denies any urinary symptoms. She is accompanied by her daughter who reports abrades her story. She denies any seizure or urinary oral bowel incontinence or retention. Imaging studies in the ER were unremarkable for head CT and is recommended for admission for further evaluation. She reports that normally she is able to transfer from bed to chair but right now she requires up to 2 people assist to get up from a sitting position ROS Constitutional: No fever, fatigue or weight loss. Skin: No rash. Eyes: No recent vision problems or eye pain. ENT: No congestion, ear pain, or sore throat. Endocrine: No thyroid problems. Cardiovascular: No chest pain. Respiratory: No cough, shortness of breath, congestion, or wheezing. Gastrointestinal: No abdominal pain, nausea, vomiting, or diarrhea. Genitourinary: No dysuria. Musculoskeletal: No joint swelling. Neurologic: Lower extremity weakness, No seizures. Hematologic: No unusual bruising or bleeding. Psychiatric: No psychiatric problems, hallucinations or depression. All other systems reviewed and otherwise negative. Past History Past Medical History: diabetes, hypertension, stroke Past Surgical History: No surgical history Social history: no significant social history, single, lives with family. denies: smoking, alcohol abuse, prescription drug abuse, IV drug use Family history: no significant family history Medications and Allergies Allergies Allergy/AdvReac Type Severity Reaction Status Date / Time No Known Allergies Allergy Verified 01/18/16 23:49 Home Medications Medication Instructions Recorded Confirmed Last Taken Type Linagliptin [Tradjenta] 5 mg PO QDAY 01/19/16 10/07/16 01/18/16 History Lisinopril/Hydrochlorothiazide 1 tab PO QDAY #30 tablet 01/19/16 10/07/16 Unknown Rx [Zestoretic 10-12.5 mg] Active Meds: Active Medications Acetaminophen (Tylenol) 650 mg PO Q4H PRN PRN Reason: Pain, Mild (1-3) Albuterol (Proventil) 2.5 mg IH Q3HRT PRN PRN Reason: Shortness Of Breath Albuterol/Ipratropium (Duoneb 0.5 Mg-3 Mg/3 Ml Soln) 1 ampul IH Q6HRT [facility] Last Admin: 10/07/16 14:02 Dose: 1 ampul Aspirin (Aspirin) 325 mg PO QDAY [facility] Last Admin: 10/07/16 11:23 Dose: 325 mg Bisacodyl (Dulcolax) 10 mg VT QDAY PRN PRN Reason: Constipation unrelieved by MOM Dextrose (D50w (25gm)) 50 ml IV PRN PRN PRN Reason: Hypoglycemia Famotidine (Pepcid) 10 mg IV BID [facility] Last Admin: 10/07/16 11:23 Dose: 10 mg Heparin Sodium (Porcine) (Heparin) 5,000 unit SUB-Q Q12HR [facility] Last Admin: 10/07/16 11:28 Dose: 5,000 unit Insulin Aspart (Novolog) 0 units SUB-Q ACHS [facility] PRN Reason: Protocol Magnesium Hydroxide (Milk Of Magnesia) 30 ml PO Q4H PRN PRN Reason: Constipation Metoclopramide HCl (Reglan) 10 mg IV Q6H PRN PRN Reason: Nausea And Vomiting Ondansetron HCl (Zofran) 4 mg IV Q8H PRN PRN Reason: N/V unrelieved by Reglan Oxycodone/Acetaminophen (Percocet 5/325) 1 tab PO Q6H PRN PRN Reason: Pain, Moderate (4-6) Promethazine HCl (Phenergan) 25 mg VT Q6H PRN PRN Reason: Nausea And Vomiting Simvastatin (Zocor) 20 mg PO QHS [facility] Sodium Chloride (Sodium Chloride Flush Syringe 10 Ml) 10 ml IV PRN PRN PRN Reason: LINE FLUSH Zolpidem Tartrate (Ambien) 5 mg PO QHS PRN PRN Reason: Insomnia Exam - Physical Exam Narrative exam: VITAL SIGNS: Reviewed. GENERAL: The patient appeared well nourished and normally developed. Vital signs as documented. HEAD: No signs of head trauma. EYES: Pupils are equal. Extraocular motions intact. EARS: Hearing grossly intact. MOUTH: Oropharynx is normal. NECK: No adenopathy, no JVD. CHEST: Chest with clear breath sounds bilaterally. No wheezes, rales, or rhonchi. CARDIAC: Regular rate and rhythm. S1 and S2, without murmurs, gallops, or rubs. VASCULAR: 1+ pitting edema bilateral lower extremities worse on the left. Peripheral pulses normal and equal in all extremities. ABDOMEN: Soft, without detectable tenderness. No sign of distention. No rebound or guarding, and no masses palpated. Bowel Sounds normal. MUSCULOSKELETAL: Good range of motion of all major joints. Extremities without clubbing, cyanosis or edema. NEUROLOGIC EXAM: Alert and oriented x 3. Left facial droop chronic per family , mild left hemiparesis rigidity with diminished light touch. Strength 4 over 5 on the left side. Speech normal. Follows commands. PSYCHIATRIC: Mood normal. SKIN: No rash or lesions. - Constitutional Vitals: Temp Pulse Resp BP Pulse Ox 98.0 F 72 20 140/83 100 10/07/16 11:41 10/07/16 11:41 10/07/16 11:41 10/07/16 11:41 10/07/16 11:41 Results - Labs CBC & Chem 7: 10/07/16 03:44 10/07/16 03:44 Labs: Laboratory Last Values WBC 8.2 K/mm3 (4.5-11.0) 10/07/16 03:44 RBC 4.80 M/mm3 (3.65-5.03) 10/07/16 03:44 Hgb 12.9 gm/dl (10.1-14.3) 10/07/16 03:44 Hct 40.5 % (30.3-42.9) 10/07/16 03:44 MCV 84 fl (79-97) 10/07/16 03:44 MCH 27 pg (28-32) L 10/07/16 03:44 MCHC 32 % (30-34) 10/07/16 03:44 RDW 13.7 % (13.2-15.2) 10/07/16 03:44 Plt Count 151 K/mm3 (140-440) 10/07/16 03:44 Lymph % (Auto) 36.8 % (13.4-35.0) H 10/07/16 03:44 [place] % (Auto) 9.2 % (0.0-7.3) H 10/07/16 03:44 Eos % (Auto) 1.2 % (0.0-4.3) 10/07/16 03:44 Baso % (Auto) 0.4 % (0.0-1.8) 10/07/16 03:44 Lymph # 3.0 K/mm3 (1.2-5.4) 10/07/16 03:44 [place] # 0.7 K/mm3 (0.0-0.8) 10/07/16 03:44 Eos # 0.1 K/mm3 (0.0-0.4) 10/07/16 03:44 Baso # 0.0 K/mm3 (0.0-0.1) 10/07/16 03:44 Seg Neutrophils % 52.4 % (40.0-70.0) 10/07/16 03:44 Seg Neutrophils # 4.3 K/mm3 (1.8-7.7) 10/07/16 03:44 VBG pH 7.374 (7.320-7.420) 10/07/16 03:44 Sodium 141 mmol/L (137-145) 10/07/16 03:44 Potassium 4.2 mmol/L (3.6-5.0) 10/07/16 03:44 Chloride 102.8 mmol/L (98-107) 10/07/16 03:44 Carbon Dioxide 26 mmol/L (22-30) 10/07/16 03:44 Anion Gap 16 mmol/L 10/07/16 03:44 BUN 32 mg/dL (7-17) H 10/07/16 03:44 Creatinine 1.1 mg/dL (0.7-1.2) 10/07/16 03:44 Estimated GFR 60 ml/min 10/07/16 03:44 BUN/Creatinine Ratio 29.09 % 10/07/16 03:44 Glucose 101 mg/dL (65-100) H 10/07/16 03:44 POC Glucose 80 (70-105) 10/07/16 11:39 Lactic Acid 1.3 mmol/L (0.7-2.0) 10/07/16 03:44 Calcium 9.0 mg/dL (8.4-10.2) 10/07/16 03:44 Total Bilirubin 0.2 mg/dL (0.1-1.2) 10/07/16 03:44 AST 49 units/L (5-40) H 10/07/16 03:44 ALT 42 units/L (7-56) 10/07/16 03:44 Alkaline Phosphatase 154 units/L (35-129) H 10/07/16 03:44 Troponin T < 0.010 ng/mL (0.00-0.029) 10/07/16 03:44 NT-Pro-B Natriuret Pep 221.9 pg/mL (0-900) 10/07/16 03:44 Total Protein 7.5 g/dL (6.3-8.2) 10/07/16 03:44 Albumin 3.6 g/dL (3.9-5) L 10/07/16 03:44 Albumin/Globulin Ratio 0.9 % 10/07/16 03:44 Lipase 49 units/L (13-60) 10/07/16 03:44 Urine Color Yellow (Yellow) 10/07/16 Unknown Urine Turbidity Clear (Clear) 10/07/16 Unknown Urine pH 6.0 (5.0-7.0) 10/07/16 Unknown Ur Specific [place] 1.011 (1.003-1.030) 10/07/16 Unknown Urine Protein <15 mg/dl mg/dL (Negative) 10/07/16 Unknown Urine Glucose (UA) Neg mg/dL (Negative) 10/07/16 Unknown Urine Ketones Neg mg/dL (Negative) 10/07/16 Unknown Urine Blood Neg (Negative) 10/07/16 Unknown Urine Nitrite Neg (Negative) 10/07/16 Unknown Urine Bilirubin Neg (Negative) 10/07/16 Unknown Urine Urobilinogen < 2.0 mg/dL (<2.0) 10/07/16 Unknown Ur Leukocyte Esterase Neg (Negative) 10/07/16 Unknown Urine WBC (Auto) < 1.0 /HPF (0.0-6.0) 10/07/16 Unknown Urine RBC (Auto) < 1.0 /HPF (0.0-6.0) 10/07/16 Unknown U Epithel Cells (Auto) < 1.0 /HPF (0-13.0) 10/07/16 Unknown Urine Mucus Few /HPF 10/07/16 Unknown - Imaging and Cardiology Chest x-ray: image reviewed (no acute pathology) CT Scan - head: image reviewed Assessment and Plan Assessment and plan: Patient is a pleasant 66-year-old female with history of diabetes mellitus, congestive heart failure which is stable at this time, bilateral lower legs wounds. Also history of stroke 2 in 2009 and 2013 residual left hemiparesis ambulates with a walker who presents to the ER with complaint of worsening weakness now affect and bilateral extremities. Had 2 episodes of fall in the last 2 days. Much different from her baseline. She denies any fever, nausea, vomiting, diarrhea she denies any urinary symptoms. She is accompanied by her daughter who reports abrades her story. She denies any seizure or urinary oral bowel incontinence or retention. Imaging studies in the ER were unremarkable for head CT and is recommended for admission for further evaluation. She reports that normally she is able to transfer from bed to chair but right now she requires up to 2 people assist to get up from a sitting position. * TIA * Worsening left hemiparesis with mild right hemiparesis * Diabetes mellitus * Hypertension * Stable congestive heart failure * Obesity * Left lower extremity edema-chronic per family Plan * We'll admit patient to telemetry, obtain neurology consultation * Start patient on CVA protocol, check MRI of the brain * We'll obtain Doppler of carotid arteries and also left lower extremity ultrasound to rule out DVT * Resume diabetic medication and blood pressure control * We'll start on aspirin, Zocor 40 mg daily check fasting lipid profil * Continue stroke precautions, fall precautions. * obtain physical therapy and occupational therapy evaluate and treat * DVT and GI prophylaxis Advance Directives: Yes Plan of care discussed with patient/family: Yes
[2016-10-07] MEDS: NOVOLOG SUB-Q SCH ×3 (18:14→22:21)
[2016-10-07] MEDS ORDERED: ZESTRIL PO SCH (22:00)
[2016-10-07] MEDS: ZOCOR PO SCH (22:33)
[2016-10-07] MEDS: PERCOCET 5/325 PO PRN (23:50)
[2016-10-08] MEDS: AMBIEN PO PRN ×2 (01:52→22:41)
[2016-10-08 06:29] LABS: Hematocrit 36.2 % (30.3-42.9); Hemoglobin 11.8 gm/dl (10.1-14.3); Mean Corpuscular HGB Conc 33 % (30-34); Mean Corpuscular Hemoglobin 27 pg (28-32); Mean Corpuscular Volume 84 fl (79-97); Platelet Count 124 K/mm3 (140-440); Red Blood Count 4.32 M/mm3 (3.65-5.03); Red Cell Distribution Width 13.5 % (13.2-15.2); White Blood Count 5.9 K/mm3 (4.5-11.0)
[2016-10-08 06:39] LABS: Anion Gap 14 mmol/L; Blood Urea Nitrogen 22 mg/dL (7-17); Calcium 8.6 mg/dL (8.4-10.2); Carbon Dioxide 27 mmol/L (22-30); Cholesterol 125 mg/dL (50-199); Glucose 127 mg/dL (65-100); HDL Cholesterol 51 mg/dL (40-59); LDL Cholesterol,Direct 50 mg/dL (50-130); Potassium 4.3 mmol/L (3.6-5.0); Sodium 140 mmol/L (137-145); Triglycerides 121 mg/dL (2-149)
[2016-10-08] MEDS: DUONEB 0.5 MG-3 MG/3 ML SOLN IH SCH ×3 (07:50→20:28)
[2016-10-08] MEDS: NOVOLOG SUB-Q SCH ×4 (08:48→22:38)
[2016-10-08] MEDS: HCTZ PO SCH (11:06)
[2016-10-08] MEDS: ZESTRIL PO SCH (11:06)
[2016-10-08] MEDS: HEPARIN SUB-Q SCH ×2 (11:26→22:37)
[2016-10-08] MEDS: BABY ASPIRIN PO SCH (11:26)
[2016-10-08] MEDS: PEPCID PO SCH ×2 (11:26→22:35)
[2016-10-08] MEDS: TRADJENTA PO SCH (11:26)
[2016-10-08] MEDS: PEPCID IV SCH (11:27)
[2016-10-08] MEDS ORDERED: NACL ONE (12:11)
--- NOTE | 2016-10-08 12:56 | Cat Scan Report ---
CT NECK WITH AND WITHOUT CONTRAST: HISTORY: CVA, neck mass. TECHNIQUE: Helical CT before and after IV contrast. Sagittal and coronal reformatted images. FINDINGS: The parotid and submandibular glands are normal. There is no evidence of adenopathy within the neck. The thyroid gland is normal. The glottic structures are normal. The airway is patent. Strap musculature is unremarkable. Hyoid bone and thyroid cartilage are intact. The carotid systems are patent. Mild partially calcified plaques are noted near the carotid bifurcation. No hemodynamically significant stenosis. IMPRESSION: Unremarkable CT neck.
--- NOTE | 2016-10-08 12:57 | Cat Scan Report ---
CT HEAD WITH AND WITHOUT CONTRAST: HISTORY: CVA. Volume loss and gliosis of the white matter is unchanged since 10/07/16. Chronic focal infarct in the right cazares radiata is again noted. No new area of diminished attenuation, mass, extra-axial fluid collection or abnormal enhancement. Ventricular size is normal. The basal cisterns are clear. No abnormal enhancement following IV contrast. The mastoid air cells and visualized portions of the sinuses are normal. IMPRESSION: Chronic findings as described above. No abnormal enhancement. No significant change since 10/07/16.
--- NOTE | 2016-10-08 14:52 | Progress Note ---
Assessment and Plan Assessment and plan: Patient is a pleasant 66-year-old female with history of diabetes mellitus, congestive heart failure which is stable at this time, bilateral lower legs wounds. Also history of stroke 2 in 2009 and 2013 residual left hemiparesis ambulates with a walker who presents to the ER with complaint of worsening weakness now affect and bilateral extremities. Had 2 episodes of fall in the last 2 days. Much different from her baseline. She denies any fever, nausea, vomiting, diarrhea she denies any urinary symptoms. She is accompanied by her daughter who reports abrades her story. She denies any seizure or urinary oral bowel incontinence or retention. Imaging studies in the ER were unremarkable for head CT and is recommended for admission for further evaluation. She reports that normally she is able to transfer from bed to chair but right now she requires up to 2 people assist to get up from a sitting position. * TIA * Left Hemiparesis * Diabetes mellitus * Hypertension * Stable congestive heart failure * Obesity * Left lower extremity edema with excoriations-chronic per family Plan * Clinically improved but requires Rehab per PT * Unable to get MRI due to Pacemaker * Continue wound care * Resume diabetic medication and blood pressure control * continue aspirin, Zocor 40 mg daily, follow fasting lipid profile * Continue stroke precautions, fall precautions. * Appeals Referee consult * obtain physical therapy and occupational therapy evaluate and treat * DVT and GI prophylaxis History Interval history: Patient seen and examined this morning in no acute distress sitting up in bed today reports improvements. Denies any chest pain, nausea, vomiting, diarrhea No fever noted blood pressure controlled No adverse events reported to me by nursing staff Hospitalist Physical - Physical exam Narrative exam: VITAL SIGNS: Reviewed. GENERAL: The patient appeared well nourished and normally developed. Vital signs as documented. HEAD: No signs of head trauma. EYES: Pupils are equal. Extraocular motions intact. EARS: Hearing grossly intact. MOUTH: Oropharynx is normal. NECK: No adenopathy, no JVD. CHEST: Chest with clear breath sounds bilaterally. No wheezes, rales, or rhonchi. CARDIAC: Regular rate and rhythm. S1 and S2, without murmurs, gallops, or rubs. VASCULAR: 1+ pitting edema bilateral lower extremities worse on the left. Peripheral pulses normal and equal in all extremities. ABDOMEN: Soft, without detectable tenderness. No sign of distention. No rebound or guarding, and no masses palpated. Bowel Sounds normal. MUSCULOSKELETAL: Good range of motion of all major joints. Extremities without clubbing, cyanosis or edema. NEUROLOGIC EXAM: Alert and oriented x 3. Left facial droop chronic per family , mild left hemiparesis rigidity with diminished light touch. Strength 4 over 5 on the left side. Speech normal. Follows commands. PSYCHIATRIC: Mood normal. SKIN: Area shows bilateral lower extremities. - Constitutional Vitals: Temp Pulse Resp BP Pulse Ox 97.4 F L 68 20 149/76 98 10/08/16 14:09 10/08/16 14:09 10/08/16 14:09 10/08/16 14:09 10/08/16 14:09 Results - Labs CBC & Chem 7: 10/08/16 04:54 10/08/16 04:54 Labs: Laboratory Last Values WBC 5.9 K/mm3 (4.5-11.0) 10/08/16 04:54 RBC 4.32 M/mm3 (3.65-5.03) 10/08/16 04:54 Hgb 11.8 gm/dl (10.1-14.3) 10/08/16 04:54 Hct 36.2 % (30.3-42.9) 10/08/16 04:54 MCV 84 fl (79-97) 10/08/16 04:54 MCH 27 pg (28-32) L 10/08/16 04:54 MCHC 33 % (30-34) 10/08/16 04:54 RDW 13.5 % (13.2-15.2) 10/08/16 04:54 Plt Count 124 K/mm3 (140-440) L 10/08/16 04:54 Lymph % (Auto) 36.8 % (13.4-35.0) H 10/07/16 03:44 [place] % (Auto) 9.2 % (0.0-7.3) H 10/07/16 03:44 Eos % (Auto) 1.2 % (0.0-4.3) 10/07/16 03:44 Baso % (Auto) 0.4 % (0.0-1.8) 10/07/16 03:44 Lymph # 3.0 K/mm3 (1.2-5.4) 10/07/16 03:44 [place] # 0.7 K/mm3 (0.0-0.8) 10/07/16 03:44 Eos # 0.1 K/mm3 (0.0-0.4) 10/07/16 03:44 Baso # 0.0 K/mm3 (0.0-0.1) 10/07/16 03:44 Seg Neutrophils % 52.4 % (40.0-70.0) 10/07/16 03:44 Seg Neutrophils # 4.3 K/mm3 (1.8-7.7) 10/07/16 03:44 VBG pH 7.374 (7.320-7.420) 10/07/16 03:44 Sodium 140 mmol/L (137-145) 10/08/16 04:54 Potassium 4.3 mmol/L (3.6-5.0) 10/08/16 04:54 Chloride 103.0 mmol/L (98-107) 10/08/16 04:54 Carbon Dioxide 27 mmol/L (22-30) 10/08/16 04:54 Anion Gap 14 mmol/L 10/08/16 04:54 BUN 22 mg/dL (7-17) H 10/08/16 04:54 Creatinine 1.0 mg/dL (0.7-1.2) 10/08/16 04:54 Estimated GFR > 60 ml/min 10/08/16 04:54 BUN/Creatinine Ratio 22.00 % 10/08/16 04:54 Glucose 127 mg/dL (65-100) H 10/08/16 04:54 POC Glucose 114 (70-105) H 10/07/16 21:11 Lactic Acid 1.3 mmol/L (0.7-2.0) 10/07/16 03:44 Calcium 8.6 mg/dL (8.4-10.2) 10/08/16 04:54 Total Bilirubin 0.2 mg/dL (0.1-1.2) 10/07/16 03:44 AST 49 units/L (5-40) H 10/07/16 03:44 ALT 42 units/L (7-56) 10/07/16 03:44 Alkaline Phosphatase 154 units/L (35-129) H 10/07/16 03:44 Troponin T < 0.010 ng/mL (0.00-0.029) 10/07/16 03:44 NT-Pro-B Natriuret Pep 221.9 pg/mL (0-900) 10/07/16 03:44 Total Protein 7.5 g/dL (6.3-8.2) 10/07/16 03:44 Albumin 3.6 g/dL (3.9-5) L 10/07/16 03:44 Albumin/Globulin Ratio 0.9 % 10/07/16 03:44 Triglycerides 121 mg/dL (2-149) 10/08/16 04:54 Cholesterol 125 mg/dL (50-199) 10/08/16 04:54 LDL Cholesterol Direct 50 mg/dL (50-130) 10/08/16 04:54 HDL Cholesterol 51 mg/dL (40-59) 10/08/16 04:54 Cholesterol/HDL Ratio 2.45 % 10/08/16 04:54 Lipase 49 units/L (13-60) 10/07/16 03:44 Urine Color Yellow (Yellow) 10/07/16 Unknown Urine Turbidity Clear (Clear) 10/07/16 Unknown Urine pH 6.0 (5.0-7.0) 10/07/16 Unknown Ur Specific [place] 1.011 (1.003-1.030) 10/07/16 Unknown Urine Protein <15 mg/dl mg/dL (Negative) 10/07/16 Unknown Urine Glucose (UA) Neg mg/dL (Negative) 10/07/16 Unknown Urine Ketones Neg mg/dL (Negative) 10/07/16 Unknown Urine Blood Neg (Negative) 10/07/16 Unknown Urine Nitrite Neg (Negative) 10/07/16 Unknown Urine Bilirubin Neg (Negative) 10/07/16 Unknown Urine Urobilinogen < 2.0 mg/dL (<2.0) 10/07/16 Unknown Ur Leukocyte Esterase Neg (Negative) 10/07/16 Unknown Urine WBC (Auto) < 1.0 /HPF (0.0-6.0) 10/07/16 Unknown Urine RBC (Auto) < 1.0 /HPF (0.0-6.0) 10/07/16 Unknown U Epithel Cells (Auto) < 1.0 /HPF (0-13.0) 10/07/16 Unknown Urine Mucus Few /HPF 10/07/16 Unknown - Imaging and Cardiology CT Scan - head: image reviewed (are unremarkable except for chronic changes)
[2016-10-08] MEDS: PERCOCET 5/325 PO PRN (16:37)
--- NOTE | 2016-10-08 18:32 | Consultation ---
History of Present Illness - Reason for Consult Consult date: 10/08/16 Evaluate for Acute IRU - History of Present Illness 66 y.o. female who presented due to acute onset of worsening left sided weakness and new right sided weakness from baseline. Pt has a history of prior CVA with residual left sided weakness; ambulated with a small based quad cane, occasionally RW; however, essentially modified independent prior to admission. No new CVA noted on CT scan; MRI unable to be completed due to pacemaker. Per patient, right sided weakness has improved, however, continues with right hand numbness and right knee weakness/buckling. Left sided strength back to baseline. Consult requested for post acute placement recommendations. Past History Past Medical History: diabetes, hypertension, stroke (with residual left sided weakness, arm>leg) Past Surgical History: CABG, Other (pacemaker ) Social history: single, lives with family. denies: smoking, alcohol abuse Family history: CAD, diabetes, hypertension Medications and Allergies Allergies Allergy/AdvReac Type Severity Reaction Status Date / Time No Known Allergies Allergy Verified 01/18/16 23:49 Home Medications Medication Instructions Recorded Confirmed Last Taken Type Linagliptin [Tradjenta] 5 mg PO QDAY 01/19/16 10/07/16 01/18/16 History Lisinopril/Hydrochlorothiazide 1 tab PO QDAY #30 tablet 01/19/16 10/07/16 Unknown Rx [Zestoretic 10-12.5 mg] Insulin Glargine [Lantus] 15 unit SUB-Q QHS 10/07/16 10/07/16 1 Day Ago History Active Meds: Active Medications Acetaminophen (Tylenol) 650 mg PO Q4H PRN PRN Reason: Pain, Mild (1-3) Albuterol (Proventil) 2.5 mg IH Q3HRT PRN PRN Reason: Shortness Of Breath Albuterol/Ipratropium (Duoneb 0.5 Mg-3 Mg/3 Ml Soln) 1 ampul IH TIDRT [facility] Last Admin: 10/08/16 14:38 Dose: 1 ampul Aspirin (Baby Aspirin) 81 mg PO QDAY [facility] Last Admin: 10/08/16 11:26 Dose: 81 mg Bisacodyl (Dulcolax) 10 mg NM QDAY PRN PRN Reason: Constipation unrelieved by MOM Dextrose (D50w (25gm)) 50 ml IV PRN PRN PRN Reason: Hypoglycemia Famotidine (Pepcid) 10 mg PO BID [facility] Last Admin: 10/08/16 11:26 Dose: 10 mg Heparin Sodium (Porcine) (Heparin) 5,000 unit SUB-Q Q12HR [facility] Last Admin: 10/08/16 11:26 Dose: 5,000 unit Hydrochlorothiazide (Hctz) 12.5 mg PO QDAY [facility] Last Admin: 10/08/16 11:06 Dose: Not Given Insulin Aspart (Novolog) 0 units SUB-Q ACHS [facility] PRN Reason: Protocol Last Admin: 10/08/16 18:03 Dose: Not Given Linagliptin (Tradjenta) 5 mg PO QDAY [facility] Last Admin: 10/08/16 11:26 Dose: 5 mg Lisinopril (Zestril) 10 mg PO QDAY [facility] Last Admin: 10/08/16 11:06 Dose: Not Given Magnesium Hydroxide (Milk Of Magnesia) 30 ml PO Q4H PRN PRN Reason: Constipation Metoclopramide HCl (Reglan) 10 mg IV Q6H PRN PRN Reason: Nausea And Vomiting Ondansetron HCl (Zofran) 4 mg IV Q8H PRN PRN Reason: N/V unrelieved by Reglan Oxycodone/Acetaminophen (Percocet 5/325) 1 tab PO Q6H PRN PRN Reason: Pain, Moderate (4-6) Last Admin: 10/08/16 16:37 Dose: 1 tab Promethazine HCl (Phenergan) 25 mg NM Q6H PRN PRN Reason: Nausea And Vomiting Simvastatin (Zocor) 20 mg PO QHS [facility] Last Admin: 10/07/16 22:33 Dose: 20 mg Sodium Chloride (Sodium Chloride Flush Syringe 10 Ml) 10 ml IV PRN PRN PRN Reason: LINE FLUSH Zolpidem Tartrate (Ambien) 5 mg PO QHS PRN PRN Reason: Insomnia Last Admin: 10/08/16 01:52 Dose: 5 mg Review of Systems All systems: negative Ears, nose, mouth and throat: no headache Cardiovascular: lightheadedness Respiratory: no cough Gastrointestinal: no nausea, no vomiting, no constipation Genitourinary Female: no dysuria Musculoskeletal: gait dysfunction (right knee buckling) Neurological: parathesias (right hand) Exam - Constitutional Vitals: Vital Signs - 12hr 10/08/16 10/08/16 10/08/16 07:35 07:45 08:00 Temperature 97.5 F L Pulse Rate Pulse Rate [ 69 72 Anterior Bilateral Throughout] Pulse Rate [ From Monitor] Pulse Rate [ 71 Right Radial] Respiratory 20 Rate Respiratory 18 20 Rate [Anterior Bilateral Throughout] Blood Pressure Blood Pressure 164/65 [Right Arm] O2 Sat by Pulse 95 Oximetry 10/08/16 10/08/16 10/08/16 10:00 11:06 14:09 Temperature 97.4 F L Pulse Rate 70 71 Pulse Rate [ Anterior Bilateral Throughout] Pulse Rate [ 71 68 From Monitor] Pulse Rate [ Right Radial] Respiratory 20 20 Rate Respiratory Rate [Anterior Bilateral Throughout] Blood Pressure 164/65 Blood Pressure 149/76 [Right Arm] O2 Sat by Pulse 95 98 Oximetry 10/08/16 10/08/16 14:30 14:55 Temperature Pulse Rate Pulse Rate [ 70 68 Anterior Bilateral Throughout] Pulse Rate [ From Monitor] Pulse Rate [ Right Radial] Respiratory Rate Respiratory 18 18 Rate [Anterior Bilateral Throughout] Blood Pressure Blood Pressure [Right Arm] O2 Sat by Pulse Oximetry General appearance: no acute distress, obese, other (noted to be up ambulating in the room upon entering; standing at her closet) - EENT Eyes: EOM intact ENT: hearing intact - Neck Neck: supple, normal ROM - Respiratory Respiratory effort: normal Respiratory: bilateral: CTA - Cardiovascular Rhythm: regular Heart Sounds: Present: S1 & S2 - Extremities Extremity abnormal: edema (LLE) - Gastrointestinal General gastrointestinal: Present: soft, non-tender, non-distended, normal bowel sounds - Integumentary Integumentary: Present: clear - Musculoskeletal Musculoskeletal: other (4/5 right extremities, except slightly decreased community service representative strength; LUE 2/5, however this is baseline from prior CVA; 3/5 LLE) - Neurologic Neurologic: CNII-XII intact, other (decreased sensation at right UE) - Psychiatric Psychiatric: appropriate mood/affect, intact judgment & insight, memory intact, cooperative - Allied health notes Allied health notes reviewed: PT (Taylor-CGA 90 feet with SBQC), OT (Independent to maxA for ADLs on evaluation) FIMS assesment as documented by PT/OT/ST: Locomotion- walk/wheelchair Ambulation Distance 10 - Labs CBC & Chem 7: 10/08/16 04:54 10/08/16 04:54 Labs: Laboratory Results - last 72 hr 10/07/16 10/07/16 10/07/16 11:39 15:44 21:11 WBC RBC Hgb Hct MCV MCH MCHC RDW Plt Count Sodium Potassium Chloride Carbon Dioxide Anion Gap BUN Creatinine Estimated GFR BUN/Creatinine Ratio Glucose POC Glucose 80 123 H 114 H Calcium Triglycerides Cholesterol LDL Cholesterol Direct HDL Cholesterol Cholesterol/HDL Ratio Urine Color Urine Turbidity Urine pH Ur Specific [place] Urine Protein Urine Glucose (UA) Urine Ketones Urine Blood Urine Nitrite Urine Bilirubin Urine Urobilinogen Ur Leukocyte Esterase Urine WBC (Auto) Urine RBC (Auto) U Epithel Cells (Auto) Urine Mucus 10/07/16 10/08/16 10/08/16 Unknown 04:54 04:54 WBC 5.9 RBC 4.32 Hgb 11.8 Hct 36.2 MCV 84 MCH 27 L MCHC 33 RDW 13.5 Plt Count 124 L Sodium 140 Potassium 4.3 Chloride 103.0 Carbon Dioxide 27 Anion Gap 14 BUN 22 H Creatinine 1.0 Estimated GFR > 60 BUN/Creatinine Ratio 22.00 Glucose 127 H POC Glucose Calcium 8.6 Triglycerides 121 Cholesterol 125 LDL Cholesterol Direct 50 HDL Cholesterol 51 Cholesterol/HDL Ratio 2.45 Urine Color Yellow Urine Turbidity Clear Urine pH 6.0 Ur Specific [place] 1.011 Urine Protein <15 mg/dl Urine Glucose (UA) Neg Urine Ketones Neg Urine Blood Neg Urine Nitrite Neg Urine Bilirubin Neg Urine Urobilinogen < 2.0 Ur Leukocyte Esterase Neg Urine WBC (Auto) < 1.0 Urine RBC (Auto) < 1.0 U Epithel Cells (Auto) < 1.0 Urine Mucus Few Assessment and Plan Patient was assessed and evaluated for Acute Inpatient Rehab Unit. 66 y.o. female with history of prior [facility] with residual left sided weakness, now with new resolving right sided weakness, hand numbness, and worsening gait dysfunction from baseline. Rehab options discussed in detail with patients; reports having home therapies following prior CVA. On today, pt noted to be ambulating in room independently without an assistive device upon entering room. No loss of balance noted; however, pt educated on safety. DM, HTN, labs stable. At this time, would recommend outpatient PT/OT at discharge. Pt is medically stable and has good family support. Will discuss with primary team; follow for any change in status. Thank you for consultation. 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) Current Visit: Yes Status: Chronic (4) HTN (hypertension) Current Visit: Yes Status: Chronic Qualifiers: Hypertension type: essential hypertension Qualified Code(s): I10 - Essential (primary) hypertension (5) Diabetes Current Visit: Yes Status: Chronic Qualifiers: Diabetes mellitus type: type 2 Diabetes mellitus complication status: with hyperglycemia Diabetes mellitus complication detail: D Diabetic retinopathy severity: D Proliferative retinopathy type: P Diabetes mellitus macular edema: D Diabetes mellitus usp insulin use: without usp use Laterality: L Chronic kidney disease stage: C Qualified Code(s): E11.65 - Type 2 diabetes mellitus with hyperglycemia
[2016-10-08] MEDS: ZOCOR PO SCH (22:35)
[2016-10-09] MEDS: PERCOCET 5/325 PO PRN (07:51)
[2016-10-09] MEDS: DUONEB 0.5 MG-3 MG/3 ML SOLN IH SCH ×4 (08:08→21:27)
[2016-10-09] MEDS: NOVOLOG SUB-Q SCH ×3 (08:36→17:09)
--- NOTE | 2016-10-09 08:45 | Event Note ---
Date: 10/09/16 f/u CTH and CT Neck reviewed and neg. TSH/B12/NH4 pending. 66 YO F Hx HTN/DM2/stroke x 2 in 2009 and 2013 on ASA w/ residual L hemiparesis requiring walker who p/w diffuse generalized weakness, exacerbated L spastic hemiparesis c/b falls in last 2 days. I have been asked to eval for TIA but I suspect re-crudescence of prior stroke sx from some possible toxic metabolic infectious etiology. There is no indication for acute TIA/stroke as presenting clinical syndrome. MRI unable to be obtained d/t PPM> Plan and Recommendation: 1. Telemetry bed w/ Q4 hour neuro checks 2. Check serum TSH/Vit B12/Ammonia and correct as necessary 3. Cont Infectious work up/medical management for UTI, PNA, cellulitis, bacteremia, etc. 4. Avoid hyponatremia, hypo/hyper-calcemia, hypo/hyperglycemia, acidosis, hypoxia/hypoxemia, hypercarbia/hypercapnia 5. Avoid institution of any psychoactive medications (e.g. antihistamines, anticholinergics, BZD, hypnotics, opiates) as able unless low doses of low potency antipsychotic needed for behavioral issues complicating medical care 6. Can lower MAPs by 10-15% daily to reach goal SBP 120-160 7. Secondary stroke prevention: Cont home ASA/statin therapy. 8. We can revisit as needed
[2016-10-09] MEDS: REGLAN IV PRN ×2 (10:25→19:13)
[2016-10-09] MEDS: TRADJENTA PO SCH (10:32)
[2016-10-09] MEDS: BABY ASPIRIN PO SCH (10:32)
[2016-10-09] MEDS: ZESTRIL PO SCH (10:32)
[2016-10-09] MEDS: HCTZ PO SCH (10:32)
[2016-10-09] MEDS: HEPARIN SUB-Q SCH ×2 (10:32→23:22)
[2016-10-09] MEDS: PEPCID PO SCH ×2 (10:33→23:22)
--- NOTE | 2016-10-09 20:05 | Progress Note ---
Assessment and Plan 1. TIA: Continue with aspirin, statin, anticoagulation with Lovenox 2. Left Hemiparesis: From prior stroke. On antiplatelets and anticoagulation. PT/OT 3. Diabetes mellitus: Sliding scale insulin, consistent provider diet 4. Hypertension: optimize blood pressure not beyond 10-15% decrease 5. Stable congestive heart failure: Diuresis, donnie, report. 6. Obesity: Dietary control 7. Left lower extremity edema with excoriations-chronic per family 8. DVT and GI prophylaxis with Lovenox and Pepcid respectively Subjective Date of service: 10/09/16 Principal diagnosis: TIA Interval history: No new complaints Objective - Constitutional Vitals: Vital Signs - 12hr 10/09/16 10/09/16 10/09/16 08:00 08:20 10:00 Temperature Pulse Rate 79 Pulse Rate [ 73 75 Anterior Bilateral Throughout] Pulse Rate [ From Monitor] Respiratory Rate Respiratory 18 18 Rate [Anterior Bilateral Throughout] Blood Pressure [Right Arm] O2 Sat by Pulse Oximetry 10/09/16 10/09/16 12:00 16:00 Temperature 98.2 F 97.9 F Pulse Rate Pulse Rate [ Anterior Bilateral Throughout] Pulse Rate [ 72 78 From Monitor] Respiratory 18 18 Rate Respiratory Rate [Anterior Bilateral Throughout] Blood Pressure 147/63 130/75 [Right Arm] O2 Sat by Pulse 95 97 Oximetry General appearance: Present: no acute distress, well-nourished - EENT Eyes: PERRL, EOM intact ENT: clear oral mucosa - Neck Neck: supple, normal ROM - Respiratory Respiratory effort: normal Respiratory: bilateral: CTA - Cardiovascular Rhythm: regular Heart Sounds: Present: S1 & S2. Absent: gallop, rub Extremities: pulses intact, No edema, normal color, Full ROM - Gastrointestinal General gastrointestinal: Present: soft, non-tender, non-distended, normal bowel sounds - Integumentary Integumentary: clear, warm, dry - Neurologic Neurologic: moves all extremities - Psychiatric Psychiatric: memory intact, appropriate mood/affect, intact judgment & insight - Labs CBC & Chem 7: 10/08/16 04:54 10/08/16 04:54 Labs: Abnormal lab results 10/08/16 10/08/16 10/08/16 Range/Units 07:59 11:28 18:00 POC Glucose 117 H 144 H 140 H (70-105) 10/08/16 Range/Units 20:55 POC Glucose 108 H (70-105)
[2016-10-09] MEDS: ZOCOR PO SCH (23:21)
[2016-10-09] MEDS: ZOFRAN IV PRN (23:22)
[2016-10-10] MEDS: NOVOLOG SUB-Q SCH ×3 (00:14→11:30)
[2016-10-10 06:11] LABS: Basophils % (Auto) 0.3 % (0.0-1.8); Eosinophils % (Auto) 0.7 % (0.0-4.3); Hematocrit 39.1 % (30.3-42.9); Hemoglobin 12.7 gm/dl (10.1-14.3); Mean Corpuscular HGB Conc 33 % (30-34); Mean Corpuscular Hemoglobin 27 pg (28-32); Mean Corpuscular Volume 84 fl (79-97); Platelet Count 144 K/mm3 (140-440); Red Blood Count 4.69 M/mm3 (3.65-5.03); Red Cell Distribution Width 13.5 % (13.2-15.2); White Blood Count 7.5 K/mm3 (4.5-11.0)
[2016-10-10] MEDS: DUONEB 0.5 MG-3 MG/3 ML SOLN IH SCH ×2 (07:18→16:12)
[2016-10-10 07:24] LABS: Albumin 3.5 g/dL (3.9-5); Albumin/Globulin Ratio 0.8 %; Bilirubin,Total 0.6 mg/dL (0.1-1.2); Calcium 9.3 mg/dL (8.4-10.2); Chloride 99.9 mmol/L (98-107); Potassium 4.4 mmol/L (3.6-5.0); Total Protein 7.7 g/dL (6.3-8.2)
[2016-10-10] MEDS: BABY ASPIRIN PO SCH (10:06)
[2016-10-10] MEDS: PEPCID PO SCH (10:06)
[2016-10-10] MEDS: ZESTRIL PO SCH (10:07)
[2016-10-10] MEDS: HCTZ PO SCH (10:08)
[2016-10-10] MEDS: TRADJENTA PO SCH (10:08)
[2016-10-10] MEDS: HEPARIN SUB-Q SCH (10:09)
--- NOTE | 2016-10-10 11:11 | Discharge Summary ---
Providers - Providers Date of Admission: 10/07/16 07:41 Date of discharge: 10/10/16 Attending physician: GABRIELA URENA 10/07/16 08:10 Occupational Therapy Evaluate and Treat [CONS] Routine Comment: Reason For Exam: TIA hx of stroke, LLE weakness Physical Therapy Evaluation and Treat [CONS] Routine Comment: Reason For Exam: TIA- unable to ambulate prior LLE weaknes 10/07/16 12:11 Consult to Wound/ET Nurse [CONS] Routine Reason For Exam: wound eval 10/08/16 14:49 Consult to Physician [CONS] Routine Consulting Provider: ADIS SHORT Reason For Exam: Debility Place consult to:: Dr. Short Notified:: Randi JUAREZ Phone number called:: [phone] Was contact made?: Yes If yes, spoke with:: Dr. Short Time called:: 17:27 Primary care physician: [employer] ENGINEER Hospitalization Condition: Stable Disposition: DC/TX INPT REHAB FACILITY Core Measure Documentation - Palliative Care Palliative Care/ Comfort Measures: Not Applicable - Core Measures Any of the following diagnoses?: stroke - Stroke Discharge Requirements Statin for LDL = or >70 mg/dl on DC: Yes Anticoag for atrial fib/atrial flutter: Not Applicable Antithrombotic for ischemic stroke: Yes Exam - Constitutional Vitals: Temp Pulse Resp BP Pulse Ox 98.0 F 90 20 122/89 97 10/10/16 08:00 10/10/16 10:07 10/10/16 08:00 10/10/16 10:07 10/10/16 08:00 General appearance: Present: no acute distress, well-nourished - EENT Eyes: Present: PERRL ENT: hearing intact, clear oral mucosa - Neck Neck: Present: supple, normal ROM - Respiratory Respiratory effort: normal Respiratory: bilateral: CTA - Cardiovascular Heart Sounds: Present: S1 & S2. Absent: rub, click - Extremities Extremities: pulses symmetrical, No edema Peripheral Pulses: within normal limits - Abdominal General gastrointestinal: Present: soft, non-tender, non-distended, normal bowel sounds Female genitourinary: Present: normal - Integumentary Integumentary: Present: clear, warm, dry - Musculoskeletal Musculoskeletal: left sided weakness - Psychiatric Psychiatric: appropriate mood/affect, intact judgment & insight - Neurologic Neurologic: moves all extremities Plan Activity: advance as tolerated Diet: low fat, low cholesterol, low salt, diabetic Special Instructions: record daily BP diary, record blood sugar diary Follow up with: PRIMARY CARE, [Primary Care Provider] - 3-5 Days Prescriptions: Aspirin 81 mg PO DAILY #30 tab.chew Famotidine [Pepcid] 10 mg PO BID #60 tablet Insulin Glargine [Lantus VIAL] 15 unit SUB-Q QHS #100 units Lisinopril/Hydrochlorothiazide [Zestoretic 10-12.5 mg] 1 tab PO QDAY #30 tablet Simvastatin [Zocor TAB] 20 mg PO QHS #30 tablet
[2016-10-10] MEDS: ZOFRAN IV PRN (15:21)
[2016-10-10 19:26] VITALS: BP 108/74
== END 2016-10-10 18:20 | disposition home health service (06) | DRG 69 ==
LOC: ED 01:33 → 4A 07:41
PROVIDERS: ADMIT Internal Medicine; ATTEND Family Medicine
DX: G45.9 Transient cerebral ischemic attack, unspecified (principal); I69.954 Hemiplegia and hemiparesis following unspecified cerebrovascular disease affecting left non-dominant side; E66.9 Obesity, unspecified; I11.0 Hypertensive heart disease with heart failure; I50.9 Heart failure, unspecified; F32.9 Major depressive disorder, single episode, unspecified; J45.909 Unspecified asthma, uncomplicated; E11.40 Type 2 diabetes mellitus with diabetic neuropathy, unspecified; E11.65 Type 2 diabetes mellitus with hyperglycemia; R26.9 Unspecified abnormalities of gait and mobility; Z68.33 Body mass index [BMI] 33.0-33.9, adult; Z82.49 Family history of ischemic heart disease and other diseases of the circulatory system; Z83.3 Family history of diabetes mellitus; Z95.1 Presence of aortocoronary bypass graft
CPT/HCPCS: 36415; 70450; 70470; 70492; 71010; 80048; 80053; 80061; 81001; 82010; 82140; 82607; 82805; 82962; 83690; 83880; 84443; 84484; 85025; 85027; 93005; 93010; 94640; 96360; 99406; G8978-GP; G8979-GP; G8987-GO; G8988-GO; J1644; J2405; J2765; J7030; Q9967

== ENCOUNTER 2016-12-16 08:54 | Emergency (ER) | payer MEDICARE ==
--- NOTE | 2016-12-16 10:17 | Emergency Department Report ---
HPI - General Chief Complaint: Extremity Problem,Nontraumatic Time Seen by Provider: 12/16/16 10:07 - HPI HPI: This is a 66-year-old -[place] female who presents to the emergency department by EMS from home with complaint of a 2-3 day history of progressively worsening bilateral lower extremity swelling. She denies any chest pain at this time. She also is having some pain to the generalized back which she says is a chronic pain for her. She denies any problems with bowel or bladder, numbness or paresthesias or any neurological deficits. She has a past medical history of CHF, venous stasis, previous CVA and hypertension. She has not taken anything special for her symptoms prior to presentation but has been compliant with her home medications. She says that this includes a diaphoretic but is not sure which one or how much. She is a tobacco smoker but denies any illicit drug use or abuse. Primary care is Dr. Coleman. 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 ED Past Medical Hx - Past Medical History Hx Hypertension: Yes Hx CVA: Yes (2009,2010 ischemic) Hx Heart Attack/AMI: Yes (CABG 2012,[employer]) Hx Diabetes: Yes Hx Psychiatric Treatment: Yes (depression) Hx Asthma: Yes (bronchitis) Additional medical history: left-sided weakness,Neuropathy - Surgical History Hx Open Heart Surgery: Yes Hx Pacemaker: Yes Additional Surgical History: hysterectomy, stents - Social History Smoking Status: Current Every Day Smoker Substance Use Type: None - Medications Home Medications: Home Medications Medication Instructions Recorded Confirmed Last Taken Type Linagliptin [Tradjenta] 5 mg PO QDAY 01/19/16 10/07/16 01/18/16 History Aspirin 81 mg PO DAILY #30 tab.chew 10/10/16 Unknown Rx Famotidine [Pepcid] 10 mg PO BID #60 tablet 10/10/16 Unknown Rx Insulin Glargine [Lantus VIAL] 15 unit SUB-Q QHS #100 units 10/10/16 Unknown Rx Lisinopril/Hydrochlorothiazide 1 tab PO QDAY #30 tablet 10/10/16 Unknown Rx [Zestoretic 10-12.5 mg] Simvastatin [Zocor TAB] 20 mg PO QHS #30 tablet 10/10/16 Unknown Rx Sulfamethoxazole/Trimethoprim 1 each PO BID #14 tablet 12/16/16 Unknown Rx [Bactrim DS TAB] ED Review of Systems ROS: Stated complaint: SWOLLEN LEGS/BOTH Other details as noted in HPI Comment: All other systems reviewed and negative Constitutional: denies: chills, fever Eyes: denies: eye pain, eye discharge, vision change ENT: denies: ear pain, throat pain Respiratory: orthopnea, shortness of breath Cardiovascular: edema. denies: chest pain Gastrointestinal: denies: abdominal pain, nausea, diarrhea Genitourinary: denies: urgency, dysuria, discharge Musculoskeletal: back pain. denies: arthralgia Skin: denies: rash, lesions Neurological: denies: headache, weakness, paresthesias Physical Exam - Physical Exam Vital Signs: Vital Signs 12/16/16 09:39 Temperature 97.7 F Pulse Rate 76 Respiratory 18 Rate Blood Pressure 155/77 Blood Pressure 155/71 [Left] O2 Sat by Pulse 97 Oximetry Physical Exam: GENERAL: The patient is well-developed well-nourished. HEENT: Normocephalic. Atraumatic. Extraocular motions are intact. Patient has moist mucous membranes. Pupils equal reactive to light bilaterally. NECK: Supple. Trachea is midline. CHEST/LUNGS: Slightly coarse breath sounds throughout the chest. No tachypnea or accessory muscle use. There is no respiratory distress noted. HEART/CARDIOVASCULAR: Regular. There is no tachycardia. There is no gallop rub or murmur. ABDOMEN: Abdomen is soft, nontender. Patient has normal bowel sounds. There is no abdominal distention. SKIN: There is some mild pitting edema to the lower extremities bilaterally. Once the distal bilateral lower extremities there is darkening of the skin and some scaly thickened skin that might be consistent with her venous stasis. NEURO: The patient is awake, alert, and oriented. The patient is cooperative. The patient has no focal neurologic deficits. The patient has normal speech. MUSCULOSKELETAL: There is no tenderness or deformity. There is no limitation range of motion. BACK: No midline thoracic or lumbar tenderness to palpation or deformity. ED Course Vital Signs 12/16/16 09:39 Temperature 97.7 F Pulse Rate 76 Respiratory 18 Rate Blood Pressure 155/77 Blood Pressure 155/71 [Left] O2 Sat by Pulse 97 Oximetry ED Medical Decision Making - Lab Data Result diagrams: 12/16/16 10:40 12/16/16 10:40 - EKG Data -: EKG Interpreted by Me EKG shows normal: sinus rhythm, axis, intervals, QRS complexes (Q waves to the inferior leads), ST-T waves Rate: normal - EKG Data When compared to previous EKG there are: previous EKG unavailable Interpretation: other (Q waves to the inferior leads otherwise no obvious ST elevation NV) - Radiology Data Radiology results: report reviewed, image reviewed interpreted by me: Chest x-ray did not show any acute process. Bilateral lower extremity venous Doppler is negative for DVT. - Medical Decision Making 66-year-old female presents the emergency department with a few days of lower extremity swelling that is causing her some discomfort. She denies any shortness of breath, chest pain. Nonetheless the patient was checked to rule out DVT with bilateral lower extremity venous Doppler which was negative for any acute DVT. She also had a low BNP and a chest x-ray that did not show any significant signs of CHF. Present patient's labs are mostly unremarkable do not show any etiology of the patient's symptoms. She doesn't history of venous stasis and her symptoms do appear consistent with that as well. The patient normally walks with a walker and was able to display the ability to walk around the emergency department with a walker and did not appear unstable in doing so. Vital signs stable throughout her ED course including being afebrile. Patient complains of a possible infection to the left great toe. I did not see anything obvious but it is possible she is starting to develop an early paronychia. For this reason the patient be given some antibiotics and a referral for podiatry. She is already on Lasix at home and was given a dose of that here for diuresis. She has been encouraged to return to the emergency department, especially if she develops any shortness of breath or chest pain or any acute distress. - Differential Diagnosis venous stasis, DVT, CHF Critical Care Time: No Critical care attestation.: If time is entered above; I have spent that time in minutes in the direct care of this critically ill patient, excluding procedure time. ED Disposition Clinical Impression: Lower extremity edema, Venous stasis HTN (hypertension) Qualifiers: Hypertension type: essential hypertension Qualified Code(s): I10 - Essential ( primary) hypertension Disposition: DISCHARGED TO HOME OR SELFCARE Is pt being admited?: No Condition: Stable Instructions: Stasis Dermatitis (ED), Leg Edema (ED), Hypertension (ED) Additional Instructions: These follow-up with your primary care doctor as soon as possible. I have also given your referral for a local taper and floater based on your concern for toe infection. You've been started on some antibiotics. Try to stay away from foods that are high in salt to help with your swollen legs and you can keep an elevated when you are resting at home. Return to the emergency department with any development of shortness of breath, chest pain, worsening of your symptoms or any acute distress. Prescriptions: Sulfamethoxazole/Trimethoprim [Bactrim DS TAB] 1 each PO BID #14 tablet Referrals: MARTÍN GOLDBERG MD [Staff Physician] - FAVIO NORTON MD [Staff Physician] - 3-5 Days Time of Disposition: 16:10
[2016-12-16 11:09] LABS: Basophils % (Auto) 0.5 % (0.0-1.8); Eosinophils % (Auto) 1.2 % (0.0-4.3); Hemoglobin 12.5 gm/dl (10.1-14.3); Mean Corpuscular HGB Conc 33 % (30-34); Mean Corpuscular Hemoglobin 28 pg (28-32); Mean Corpuscular Volume 84 fl (79-97); Platelet Count 141 K/mm3 (140-440); Red Blood Count 4.52 M/mm3 (3.65-5.03); Red Cell Distribution Width 13.4 % (13.2-15.2); White Blood Count 6.4 K/mm3 (4.5-11.0)
[2016-12-16 11:32] LABS: BUN/Creatinine Ratio 31.11; Blood Urea Nitrogen 28 mg/dL (7-17); Calcium 9.2 mg/dL (8.4-10.2); Carbon Dioxide 24 mmol/L (22-30); Glucose 183 mg/dL (65-100)
[2016-12-16 12:12] LABS: Anion Gap 19 mmol/L; Chloride 102.9 mmol/L (98-107); Potassium 4.3 mmol/L (3.6-5.0); Sodium 142 mmol/L (137-145)
[2016-12-16] MEDS ORDERED: ULTRAM PO ONE (12:45)
[2016-12-16] MEDS ORDERED: LASIX PO ONE (12:45)
--- NOTE | 2016-12-16 13:22 | XRay Report ---
Single view chest: Compared to . History: Shortness of breath. Findings: Cardiomegaly. Trachea is midline stable pacemaker. No consolidation or pleural effusion. Mild pulmonary venous congestion. No significant interval change. Impression: No significant interval change. Cardiomegaly with mild pulmonary venous congestion.
[2016-12-16 17:18] VITALS: BP 155/92
== END 2016-12-16 16:27 | disposition home or self-care (01) ==
LOC: ED 08:54
DX: R60.9 Edema, unspecified (principal); I87.8 Other specified disorders of veins; I10 Essential (primary) hypertension; I50.9 Heart failure, unspecified; E11.9 Type 2 diabetes mellitus without complications; F32.9 Major depressive disorder, single episode, unspecified; J45.909 Unspecified asthma, uncomplicated; F17.200 Nicotine dependence, unspecified, uncomplicated; Z95.0 Presence of cardiac pacemaker; Z86.73 Personal history of transient ischemic attack (TIA), and cerebral infarction without residual deficits; Z90.710 Acquired absence of both cervix and uterus
CPT/HCPCS: 36415; 71010; 80048; 83880; 84484; 85025; 93005; 93010; 93970

== ENCOUNTER 2017-03-24 12:36 | Emergency (ER) | payer MEDICARE ==
[2017-03-24] MEDS ORDERED: ROCEPHIN/NS 2 GM/100 ML 2 GM/100 ML BAG IV ONE (13:29)
[2017-03-24] MEDS ORDERED: MORPHINE IV ONE (13:30)
[2017-03-24] MEDS ORDERED: ZOFRAN IV ONE (13:30)
[2017-03-24 14:01] LABS: Hematocrit 41.6 % (30.3-42.9); Hemoglobin 13.8 gm/dl (10.1-14.3); Mean Corpuscular HGB Conc 33 % (30-34); Mean Corpuscular Hemoglobin 29 pg (28-32); Mean Corpuscular Volume 86 fl (79-97); Red Blood Count 4.82 M/mm3 (3.65-5.03); Red Cell Distribution Width 14.6 % (13.2-15.2)
[2017-03-24 14:14] LABS: Platelet Count 91 K/mm3 (140-440); White Blood Count 2.2 K/mm3 (4.5-11.0)
[2017-03-24 14:22] LABS: Alanine Aminotransferase 24 units/L (7-56); Albumin 3.8 g/dL (3.9-5); Albumin/Globulin Ratio 0.9 %; Alkaline Phosphatase 142 units/L (35-129); Anion Gap 23 mmol/L; Blood Urea Nitrogen 18 mg/dL (7-17); Calcium 9.5 mg/dL (8.4-10.2); Carbon Dioxide 23 mmol/L (22-30); Chloride 99.2 mmol/L (98-107); Glucose 130 mg/dL (65-100); Potassium 3.7 mmol/L (3.6-5.0); Sodium 141 mmol/L (137-145)
[2017-03-24 15:24] LABS: Anisocytosis 1+; Basophils % (Manual) 0 % (0.0-1.8); Blastocytes % (Manual) 0 %; Eosinophils % (Manual) 0 % (0.0-4.3)
[2017-03-24 15:25] LABS: Diff Status Complete; Platelet Estimate Consistent w Auto
[2017-03-24 15:49] LABS: Bilirubin,Urine NEG (Negative); Blood,Urine NEG (Negative); Ketones,Urine NEG (Negative); Leukocyte Esterase,Urine NEG (Negative); Mucus,Urine FEW /HPF; Nitrite,Urine NEG (Negative); Protein,Urine <15 mg/dL mg/dL (Negative); RBC,Urine < 1.0 /HPF (0.0-6.0); Urobilinogen,Urine < 2.0 mg/dL (<2.0)
[2017-03-24 15:53] LABS: WBC,Urine < 1.0 /HPF (0.0-6.0)
--- NOTE | 2017-03-24 16:18 | Emergency Department Report ---
HPI - General Chief Complaint: Abdominal Pain Time Seen by Provider: 03/24/17 13:21 ED Past Medical Hx - Past Medical History Previous Medical History?: Yes Hx Hypertension: Yes Hx CVA: Yes (2009,2010 ischemic) Hx Heart Attack/AMI: No Hx Congestive Heart Failure: No Hx Diabetes: Yes Hx Deep Vein Thrombosis: No Hx Pulmonary Embolism: No Hx Liver Disease: No Hx Renal Disease: No Hx Seizures: No Hx Kidney Stones: No Hx Psychiatric Treatment: Yes (depression) Hx Asthma: No Hx COPD: No Hx Tuberculosis: No Hx Dementia: No Hx HIV: No Additional medical history: left-sided weakness,Neuropathy, UTI - Surgical History Hx Coronary Stent: Yes Hx Open Heart Surgery: Yes Hx Pacemaker: Yes Hx Internal Defibrillator: No Hx Cholecystectomy: No Hx Appendectomy: No Hx Breast Surgery: No Additional Surgical History: hysterectomy, stents, CABG - Social History Smoking Status: Never Smoker Substance Use Type: None - Medications Home Medications: Home Medications Medication Instructions Recorded Confirmed Last Taken Type Aspirin 81 mg PO DAILY #30 tab.chew 10/10/16 03/20/17 Unknown Rx Insulin Glargine [Lantus VIAL] 15 unit SUB-Q QHS #100 units 10/10/16 03/20/17 Unknown Rx Furosemide [Lasix TAB] 40 mg PO QDAY 03/20/17 03/20/17 Unknown History Gabapentin [Neurontin] 300 mg PO BID 03/20/17 03/20/17 Unknown History Lisinopril [Zestril TAB] 20 mg PO QDAY 03/20/17 03/20/17 Unknown History Metoprolol [Lopressor TAB] 25 mg PO BID 03/20/17 03/20/17 Unknown History Mirabegron [Myrbetriq] 25 mg PO QDAY 03/20/17 03/20/17 Unknown History Nitroglycerin [Nitro Dur] 0.2 mg TRANSDERMA Q12HR 03/20/17 03/20/17 2 Days Ago History Orphenadrine Citrate 100 mg PO BID 03/20/17 03/20/17 Unknown History Pantoprazole [Protonix TAB] 40 mg PO QDAY 03/20/17 03/20/17 Unknown History Sertraline [Zoloft] 100 mg PO QDAY 03/20/17 03/20/17 Unknown History Spironolactone [Aldactone] 12.5 mg PO QDAY 03/20/17 03/20/17 Unknown History HYDROcodone/APAP 5-325 [[place] 1 each PO Q6HR PRN #12 tablet 03/22/17 Unknown Rx 5/325] Ibuprofen [Motrin 400 MG tab] 400 mg PO Q8H PRN #30 tablet 03/22/17 Unknown Rx Promethazine [Phenergan TAB] 25 mg PO Q6HR PRN #20 tab 03/22/17 Unknown Rx Ciprofloxacin HCl [Ciprofloxacin 500 mg PO BID #10 tablet 03/24/17 Unknown Rx TAB] methOCARBAMOL [Robaxin TAB] 500 mg PO Q6H PRN #20 tablet 03/24/17 Unknown Rx ED Review of Systems ROS: Stated complaint: RIGHT FLANK PAIN Other details as noted in HPI Physical Exam - Physical Exam Vital Signs: Vital Signs 03/24/17 03/24/17 12:56 13:28 Temperature 99 F Pulse Rate 72 Respiratory 18 18 Rate Blood Pressure 141/68 O2 Sat by Pulse 98 Oximetry Physical Exam: gen: alert and oriented x 3 ED Course Vital Signs 03/24/17 03/24/17 12:56 13:28 Temperature 99 F Pulse Rate 72 Respiratory 18 18 Rate Blood Pressure 141/68 O2 Sat by Pulse 98 Oximetry ED Medical Decision Making - Lab Data Result diagrams: 03/24/17 13:36 03/24/17 13:36 Critical care attestation.: If time is entered above; I have spent that time in minutes in the direct care of this critically ill patient, excluding procedure time. ED Disposition Disposition: DC-01 TO HOME OR SELFCARE Condition: Stable Instructions: Abdominal Pain (ED) Prescriptions: Ciprofloxacin HCl [Ciprofloxacin TAB] 500 mg PO BID #10 tablet methOCARBAMOL [Robaxin TAB] 500 mg PO Q6H PRN #20 tablet PRN Reason: Pain Referrals: ABEL BARNES MD [Staff Physician] - 3-5 Days PRIMARY CARE, [Primary Care Provider] - 3-5 Days
[2017-03-24 17:40] VITALS: BP 174/81
== END 2017-03-24 17:39 | disposition home or self-care (01) ==
LOC: ED 12:36
DX: R10.9 Unspecified abdominal pain (principal); I10 Essential (primary) hypertension; E11.9 Type 2 diabetes mellitus without complications
CPT/HCPCS: 36415; 80053; 81001; 85007; 85025; 96365; 96375; 99284; J0696; J2270; J2405

== ENCOUNTER 2017-03-27 22:38 | Emergency (ER) | payer MEDICARE ==
[2017-03-27] MEDS ORDERED: NORCO 5/325 ONE ×2 (23:52→23:53)
[2017-03-27] MEDS ORDERED: CATAPRES ONE (23:52)
[2017-03-27] MEDS ORDERED: CATAPRES PO ONE (23:54)
[2017-03-27] MEDS ORDERED: NORCO 5/325 PO ONE (23:54)
[2017-03-28] MEDS ORDERED: ZOFRAN IV ONE (01:28)
--- NOTE | 2017-03-28 01:28 | Emergency Department Report ---
ED General Adult HPI - General Chief complaint: High BP Stated complaint: BACK PAIN Time Seen by Provider: 03/28/17 01:15 Source: EMS Mode of arrival: Stretcher Limitations: Physical Limitation - History of Present Illness Initial comments: Pt is a 66-year-old female past medical history of chronic low back pain and hypertension who presents with low back pain. Patient states her low back pain is Aliya has been going on for the last several months. She states that she is been to the ER multiple times for this back pain. She states that Tylenol and ibuprofen do not help it. It is an 10 out of 10 and radiates throughout her body. As a achy sharp pain and it is intermittent. She states that whenever she has to stop of pain she becomes nauseous and that she has not been able to keep much food down. Patient's denies any trauma and states that her back pain has not changed from previous ER visits. Severity scale (0 -10): 10 - Related Data Home Medications Medication Instructions Recorded Confirmed Last Taken Furosemide [Lasix TAB] 40 mg PO QDAY 03/20/17 03/20/17 Unknown Gabapentin [Neurontin] 300 mg PO BID 03/20/17 03/20/17 Unknown Lisinopril [Zestril TAB] 20 mg PO QDAY 03/20/17 03/20/17 Unknown Metoprolol [Lopressor TAB] 25 mg PO BID 03/20/17 03/20/17 Unknown Mirabegron [Myrbetriq] 25 mg PO QDAY 03/20/17 03/20/17 Unknown Nitroglycerin [Nitro Dur] 0.2 mg TRANSDERMA Q12HR 03/20/17 03/20/17 2 Days Ago Orphenadrine Citrate 100 mg PO BID 03/20/17 03/20/17 Unknown Pantoprazole [Protonix TAB] 40 mg PO QDAY 03/20/17 03/20/17 Unknown Sertraline [Zoloft] 100 mg PO QDAY 03/20/17 03/20/17 Unknown Spironolactone [Aldactone] 12.5 mg PO QDAY 03/20/17 03/20/17 Unknown Previous Rx's Medication Instructions Recorded Last Taken Type Aspirin 81 mg PO DAILY #30 tab.chew 10/10/16 Unknown Rx Insulin Glargine [Lantus VIAL] 15 unit SUB-Q QHS #100 units 10/10/16 Unknown Rx HYDROcodone/APAP 5-325 [[place] 1 each PO Q6HR PRN #12 tablet 03/22/17 Unknown Rx 5/325] Ibuprofen [Motrin 400 MG tab] 400 mg PO Q8H PRN #30 tablet 03/22/17 Unknown Rx Promethazine [Phenergan TAB] 25 mg PO Q6HR PRN #20 tab 03/22/17 Unknown Rx Ciprofloxacin HCl [Ciprofloxacin 500 mg PO BID #10 tablet 03/24/17 Unknown Rx TAB] methOCARBAMOL [Robaxin TAB] 500 mg PO Q6H PRN #20 tablet 03/24/17 Unknown Rx Ondansetron [Zofran Odt] 4 mg PO Q8HR PRN #15 tab.rapdis 03/28/17 Unknown Rx traMADol [Ultram 50 MG tab] 50 mg PO Q6HR PRN #15 tablet 03/28/17 Unknown Rx Allergies Allergy/AdvReac Type Severity Reaction Status Date / Time No Known Allergies Allergy Verified 01/18/16 23:49 ED Review of Systems ROS: Stated complaint: BACK PAIN Other details as noted in HPI Constitutional: denies: chills, fever Eyes: denies: eye pain, eye discharge, vision change ENT: denies: ear pain, throat pain Respiratory: denies: cough, shortness of breath, wheezing Cardiovascular: denies: chest pain, palpitations Endocrine: no symptoms reported Gastrointestinal: nausea. denies: abdominal pain, diarrhea Genitourinary: denies: urgency, dysuria, discharge Musculoskeletal: back pain. denies: joint swelling, arthralgia Skin: denies: rash, lesions Neurological: denies: headache, weakness, paresthesias Psychiatric: denies: anxiety, depression Hematological/Lymphatic: denies: easy bleeding, easy bruising ED Past Medical Hx - Past Medical History Hx Hypertension: Yes Hx CVA: Yes (2009,2010 ischemic) Hx Heart Attack/AMI: No Hx Congestive Heart Failure: No Hx Diabetes: Yes Hx Deep Vein Thrombosis: No Hx Pulmonary Embolism: No Hx Liver Disease: No Hx Renal Disease: No Hx Seizures: No Hx Kidney Stones: No Hx Psychiatric Treatment: Yes (depression) Hx Asthma: No Hx COPD: No Hx Tuberculosis: No Hx Dementia: No Hx HIV: No Additional medical history: left-sided weakness,Neuropathy, UTI - Surgical History Hx Coronary Stent: Yes Hx Open Heart Surgery: Yes Hx Pacemaker: Yes Hx Internal Defibrillator: No Hx Cholecystectomy: No Hx Appendectomy: No Hx Breast Surgery: No Additional Surgical History: hysterectomy, stents, CABG - Social History Smoking Status: Never Smoker - Medications Home Medications: Home Medications Medication Instructions Recorded Confirmed Last Taken Type Aspirin 81 mg PO DAILY #30 tab.chew 10/10/16 03/20/17 Unknown Rx Insulin Glargine [Lantus VIAL] 15 unit SUB-Q QHS #100 units 10/10/16 03/20/17 Unknown Rx Furosemide [Lasix TAB] 40 mg PO QDAY 03/20/17 03/20/17 Unknown History Gabapentin [Neurontin] 300 mg PO BID 03/20/17 03/20/17 Unknown History Lisinopril [Zestril TAB] 20 mg PO QDAY 03/20/17 03/20/17 Unknown History Metoprolol [Lopressor TAB] 25 mg PO BID 03/20/17 03/20/17 Unknown History Mirabegron [Myrbetriq] 25 mg PO QDAY 03/20/17 03/20/17 Unknown History Nitroglycerin [Nitro Dur] 0.2 mg TRANSDERMA Q12HR 03/20/17 03/20/17 2 Days Ago History Orphenadrine Citrate 100 mg PO BID 03/20/17 03/20/17 Unknown History Pantoprazole [Protonix TAB] 40 mg PO QDAY 03/20/17 03/20/17 Unknown History Sertraline [Zoloft] 100 mg PO QDAY 03/20/17 03/20/17 Unknown History Spironolactone [Aldactone] 12.5 mg PO QDAY 03/20/17 03/20/17 Unknown History HYDROcodone/APAP 5-325 [[place] 1 each PO Q6HR PRN #12 tablet 03/22/17 Unknown Rx 5/325] Ibuprofen [Motrin 400 MG tab] 400 mg PO Q8H PRN #30 tablet 03/22/17 Unknown Rx Promethazine [Phenergan TAB] 25 mg PO Q6HR PRN #20 tab 03/22/17 Unknown Rx Ciprofloxacin HCl [Ciprofloxacin 500 mg PO BID #10 tablet 03/24/17 Unknown Rx TAB] methOCARBAMOL [Robaxin TAB] 500 mg PO Q6H PRN #20 tablet 03/24/17 Unknown Rx Ondansetron [Zofran Odt] 4 mg PO Q8HR PRN #15 tab.rapdis 03/28/17 Unknown Rx traMADol [Ultram 50 MG tab] 50 mg PO Q6HR PRN #15 tablet 03/28/17 Unknown Rx ED Physical Exam - General Limitations: Physical Limitation General appearance: alert, in no apparent distress - Head Head exam: Present: atraumatic, normocephalic - Eye Eye exam: Present: normal appearance - ENT ENT exam: Present: mucous membranes moist - Neck Neck exam: Present: normal inspection - Respiratory Respiratory exam: Present: normal lung sounds bilaterally. Absent: respiratory distress - Cardiovascular Cardiovascular Exam: Present: regular rate, normal rhythm. Absent: systolic murmur, diastolic murmur, rubs, gallop - GI/Abdominal GI/Abdominal exam: Present: soft, normal bowel sounds - Extremities Exam Extremities exam: Present: normal inspection - Back Exam Back exam: Present: muscle spasm, paraspinal tenderness - Neurological Exam Neurological exam: Present: alert, oriented X3 - Psychiatric Psychiatric exam: Present: normal affect, normal mood - Skin Skin exam: Present: warm, dry, intact, normal color. Absent: rash ED Course Vital Signs 03/27/17 03/27/17 03/28/17 23:33 23:50 00:50 Temperature 98.1 F Pulse Rate 81 Respiratory 20 25 H Rate Blood Pressure 227/127 Blood Pressure 227/127 [Left] O2 Sat by Pulse Oximetry 03/28/17 03/28/17 03/28/17 01:08 01:19 01:30 Temperature Pulse Rate 95 H Respiratory 28 H Rate Blood Pressure 197/129 222/117 Blood Pressure [Left] O2 Sat by Pulse 94 98 Oximetry 03/28/17 03/28/17 03/28/17 01:45 02:00 02:15 Temperature 98 F Pulse Rate 97 H 95 H 102 H Respiratory 21 17 21 Rate Blood Pressure 220/119 232/113 222/117 Blood Pressure 235/124 [Left] O2 Sat by Pulse 99 99 91 Oximetry 03/28/17 03/28/17 03/28/17 02:17 02:31 02:45 Temperature Pulse Rate 92 H 92 H Respiratory 25 H 16 19 Rate Blood Pressure 222/117 222/117 Blood Pressure [Left] O2 Sat by Pulse 74 L 79 L Oximetry 03/28/17 03/28/17 03/28/17 02:47 03:00 03:15 Temperature Pulse Rate 93 H 93 H Respiratory 20 15 22 Rate Blood Pressure 201/110 201/110 Blood Pressure [Left] O2 Sat by Pulse 92 96 Oximetry 03/28/17 03/28/17 03/28/17 03:31 03:45 03:50 Temperature Pulse Rate 92 H Respiratory 12 14 Rate Blood Pressure 201/110 201/110 213/111 Blood Pressure [Left] O2 Sat by Pulse 95 99 Oximetry 03/28/17 03/28/17 03/28/17 04:00 04:15 04:31 Temperature Pulse Rate Respiratory 18 14 11 L Rate Blood Pressure 218/113 218/113 224/118 Blood Pressure [Left] O2 Sat by Pulse 94 97 98 Oximetry 03/28/17 03/28/17 03/28/17 04:35 04:39 04:45 Temperature Pulse Rate 85 86 Respiratory 20 25 H Rate Blood Pressure 224/118 206/112 Blood Pressure [Left] O2 Sat by Pulse 93 Oximetry 03/28/17 03/28/17 03/28/17 05:01 05:15 05:31 Temperature Pulse Rate 84 83 83 Respiratory 19 19 18 Rate Blood Pressure 154/80 154/80 154/80 Blood Pressure [Left] O2 Sat by Pulse 92 94 97 Oximetry 03/28/17 03/28/17 03/28/17 05:45 06:00 06:15 Temperature Pulse Rate 82 82 83 Respiratory 13 24 16 Rate Blood Pressure 154/80 163/90 154/80 Blood Pressure [Left] O2 Sat by Pulse 97 96 95 Oximetry 03/28/17 03/28/17 03/28/17 06:31 06:45 07:25 Temperature 98.3 F Pulse Rate 80 79 78 Respiratory 18 16 16 Rate Blood Pressure 154/80 154/80 Blood Pressure 126/76 [Left] O2 Sat by Pulse 96 96 99 Oximetry ED Medical Decision Making - Lab Data Result diagrams: 03/28/17 01:30 03/28/17 01:30 Lab Results 03/28/17 03/28/17 03/28/17 Range/Units 01:30 01:30 01:30 WBC 2.2 L (4.5-11.0) K/mm3 RBC 5.01 (3.65-5.03) M/mm3 Hgb 14.3 (10.1-14.3) gm/dl Hct 42.7 (30.3-42.9) % MCV 85 (79-97) fl MCH 29 (28-32) pg MCHC 33 (30-34) % RDW 14.3 (13.2-15.2) % Plt Count 104 L (140-440) K/mm3 Add Manual Diff Complete Total Counted 100 Seg Neuts % (Manual) 79.0 H (40.0-70.0) % Band Neutrophils % 2.0 % Lymphocytes % (Manual) 17.0 (13.4-35.0) % Reactive Lymphs % (Man) 0 % Monocytes % (Manual) 2.0 (0.0-7.3) % Eosinophils % (Manual) 0 (0.0-4.3) % Basophils % (Manual) 0 (0.0-1.8) % Metamyelocytes % 0 % Myelocytes % 0 % Promyelocytes % 0 % Blast Cells % 0 % Nucleated RBC % Not Reportable Seg Neutrophils # Man 1.7 L (1.8-7.7) K/mm3 Band Neutrophils # 0.0 K/mm3 Lymphocytes # (Manual) 0.4 L (1.2-5.4) K/mm3 Abs React Lymphs (Man) 0.0 K/mm3 Monocytes # (Manual) 0.0 (0.0-0.8) K/mm3 Eosinophils # (Manual) 0.0 (0.0-0.4) K/mm3 Basophils # (Manual) 0.0 (0.0-0.1) K/mm3 Metamyelocytes # 0.0 K/mm3 Myelocytes # 0.0 K/mm3 Promyelocytes # 0.0 K/mm3 Blast Cells # 0.0 K/mm3 WBC Morphology Not Reportable Hypersegmented Neuts Not Reportable Hyposegmented Neuts Not Reportable Hypogranular Neuts Not Reportable Smudge Cells Not Reportable Toxic Granulation Not Reportable Toxic Vacuolation Not Reportable Dohle Bodies Not Reportable Pelger-Huet Anomaly Not Reportable Barrie Rods Not Reportable Platelet Estimate Consistent w auto Clumped Platelets Not Reportable Plt Clumps, EDTA Not Reportable Large Platelets Not Reportable Giant Platelets Not Reportable Platelet Satelliting Not Reportable Plt Morphology Comment Not Reportable RBC Morphology Not Reportable Dimorphic RBCs Not Reportable Polychromasia Not Reportable Hypochromasia Not Reportable Poikilocytosis Not Reportable Anisocytosis 1+ Microcytosis Not Reportable Macrocytosis Not Reportable Spherocytes Not Reportable Pappenheimer Bodies Not Reportable Sickle Cells Not Reportable Target Cells Not Reportable Tear Drop Cells Not Reportable Ovalocytes Not Reportable Helmet Cells Not Reportable [place] Bodies Not Reportable [place] Rings Not Reportable [place] Cells Not Reportable Bite Cells Not Reportable Crenated Cell Not Reportable Elliptocytes Not Reportable Acanthocytes (Spur) Not Reportable Rouleaux Not Reportable Hemoglobin C Crystals Not Reportable Schistocytes Not Reportable Malaria parasites Not Reportable Joe Bodies Not Reportable Hem Pathologist Commnt No Sodium 140 (137-145) mmol/L Potassium 5.2 H D (3.6-5.0) mmol/L Chloride 96.1 L (98-107) mmol/L Carbon Dioxide 23 (22-30) mmol/L Anion Gap 26 mmol/L BUN 17 (7-17) mg/dL Creatinine 0.9 (0.7-1.2) mg/dL Estimated GFR > 60 ml/min BUN/Creatinine Ratio 18.88 % Glucose 212 H (65-100) mg/dL Calcium 9.8 (8.4-10.2) mg/dL Total Bilirubin 0.70 (0.1-1.2) mg/dL AST 43 H (5-40) units/L ALT 23 (7-56) units/L Alkaline Phosphatase 135 H (35-129) units/L Total Protein 9.1 H (6.3-8.2) g/dL Albumin 4.2 (3.9-5) g/dL Albumin/Globulin Ratio 0.9 % Lipase 40 (13-60) units/L - Medical Decision Making Chief medical diagnosis: Lumbar sacral strain Differential medical diagnosis: Hypokalemia, gastritis, chronic back pain, hypertensive urgency I will get CBC, CMP, lipase, IV analgesic medication and IV antiemetic medication Patient likely has exacerbation of chronic back pain acidosis so marked her previous symptoms of coming into the emergency department. Patient has also recently got a CT scan within the last week. Due to the risks of radiation and IV contrast I discussed with the patient that I do not believe she should get a CT scan. Patient agrees with plan. Patient states that she is feeling better after IV analgesic medication I will send the patient home. Critical care attestation.: If time is entered above; I have spent that time in minutes in the direct care of this critically ill patient, excluding procedure time. ED Disposition Clinical Impression: Nausea HTN (hypertension) Qualifiers: Hypertension type: essential hypertension Qualified Code(s): I10 - Essential ( primary) hypertension Low back pain Qualifiers: Chronicity: chronic Back pain laterality: bilateral Sciatica presence: without sciatica Qualified Code(s): M54.5 - Low back pain Disposition: - TO HOME OR SELFCARE Is pt being admited?: No Does the pt Need Aspirin: No Condition: Stable Instructions: Flank Pain (ED), Chronic Back Pain (ED) Prescriptions: Ondansetron [Zofran Odt] 4 mg PO Q8HR PRN #15 tab.rapdis PRN Reason: Nausea traMADol [Ultram 50 MG tab] 50 mg PO Q6HR PRN #15 tablet PRN Reason: Pain Referrals: RADHA RUBIN MD [Primary Care Provider] - 3-5 Days
[2017-03-28 01:56] LABS: Hematocrit 42.7 % (30.3-42.9); Hemoglobin 14.3 gm/dl (10.1-14.3); Mean Corpuscular HGB Conc 33 % (30-34); Mean Corpuscular Hemoglobin 29 pg (28-32); Mean Corpuscular Volume 85 fl (79-97); Platelet Count 104 K/mm3 (140-440); Red Blood Count 5.01 M/mm3 (3.65-5.03); Red Cell Distribution Width 14.3 % (13.2-15.2)
[2017-03-28 01:58] LABS: White Blood Count 2.2 K/mm3 (4.5-11.0)
[2017-03-28] MEDS ORDERED: SUBLIMAZE IV ONE (02:00)
[2017-03-28 02:10] LABS: Albumin 4.2 g/dL (3.9-5); Albumin/Globulin Ratio 0.9 %; BUN/Creatinine Ratio 18.88; Blood Urea Nitrogen 17 mg/dL (7-17); Calcium 9.8 mg/dL (8.4-10.2); Carbon Dioxide 23 mmol/L (22-30); Chloride 96.1 mmol/L (98-107); Glucose 212 mg/dL (65-100); Sodium 140 mmol/L (137-145); Total Protein 9.1 g/dL (6.3-8.2)
[2017-03-28 02:21] LABS: Anion Gap 26 mmol/L; Potassium 5.2 mmol/L (3.6-5.0)
[2017-03-28 02:22] LABS: Alanine Aminotransferase 23 units/L (7-56); Alkaline Phosphatase 135 units/L (35-129)
[2017-03-28] MEDS ORDERED: DILAUDID IV ONE (02:54)
[2017-03-28] MEDS ORDERED: NORMODYNE IV ONE (03:14)
[2017-03-28 03:45] LABS: Basophils % (Manual) 0 % (0.0-1.8); Blastocytes % (Manual) 0 %; Eosinophils % (Manual) 0 % (0.0-4.3)
[2017-03-28 03:46] LABS: Anisocytosis 1+; Diff Status Complete; Platelet Estimate Consistent w Auto
[2017-03-28] MEDS ORDERED: APRESOLINE IV ONE (04:15)
[2017-03-28] MEDS ORDERED: COZAAR PO ONE (04:18)
[2017-03-28 07:31] VITALS: BP 126/76
== END 2017-03-28 08:00 | disposition home or self-care (01) ==
LOC: ED 22:38
DX: M54.5 Low back pain (principal); R11.0 Nausea; I10 Essential (primary) hypertension; E11.9 Type 2 diabetes mellitus without complications; F32.9 Major depressive disorder, single episode, unspecified; Z79.82 Long term (current) use of aspirin; Z79.4 Long term (current) use of insulin; Z95.0 Presence of cardiac pacemaker; Z86.73 Personal history of transient ischemic attack (TIA), and cerebral infarction without residual deficits; Z79.01 Long term (current) use of anticoagulants
CPT/HCPCS: 36415; 80053; 83690; 85007; 85025; 96374; 96375; 99284; J0360; J1170; J2405

== ENCOUNTER 2017-04-04 13:22 | Inpatient (IN) | payer MEDICARE ==
[2017-04-04 14:37] LABS: Hematocrit 40.2 % (30.3-42.9); Mean Corpuscular HGB Conc 32 % (30-34); Mean Corpuscular Hemoglobin 28 pg (28-32); Mean Corpuscular Volume 86 fl (79-97); Platelet Count 103 K/mm3 (140-440); Red Blood Count 4.66 M/mm3 (3.65-5.03); Red Cell Distribution Width 14.5 % (13.2-15.2)
[2017-04-04 14:47] LABS: Anion Gap 22 mmol/L; BUN/Creatinine Ratio 15.71; Blood Urea Nitrogen 11 mg/dL (7-17); Calcium 9.5 mg/dL (8.4-10.2); Carbon Dioxide 22 mmol/L (22-30); Glucose 153 mg/dL (65-100); Potassium 3.4 mmol/L (3.6-5.0); Sodium 141 mmol/L (137-145)
--- NOTE | 2017-04-04 15:22 | Emergency Department Report ---
<JACKIE JONES - Last Filed: 04/04/17 17:13> ED Chest Pain HPI - General Chief Complaint: Chest Pain Stated Complaint: CHEST PAIN Time Seen by Provider: 04/04/17 14:49 Source: patient, EMS Mode of arrival: Stretcher Limitations: No Limitations - History of Present Illness -: Sudden Onset: after eating Pain Location: substernal Severity: moderate Quality: tightness, heaviness Consistency: intermittent Improves With: nitroglycerin Context: recent illness - Related Data Home Medications Medication Instructions Recorded Confirmed Last Taken Pantoprazole [Protonix TAB] 40 mg PO QDAY 03/20/17 04/04/17 04/04/17 Previous Rx's Medication Instructions Recorded Last Taken Type methOCARBAMOL [Robaxin TAB] 500 mg PO Q6H PRN #20 tablet 03/24/17 04/04/17 15: 14 Rx Ondansetron [Zofran Odt] 4 mg PO Q8HR PRN #15 tab.rapdis 03/28/17 04/04/17 Rx traMADol [Ultram 50 MG tab] 50 mg PO Q6HR PRN #15 tablet 03/28/17 04/04/17 Rx Allergies Allergy/AdvReac Type Severity Reaction Status Date / Time No Known Allergies Allergy Verified 01/18/16 23:49 Heart Score - HEART Score History: Highly suspicious EKG: Non-specific Age: > 65 Risk factors: > 3 risk factors or hx of atherosclerotic disease Troponin: < normal limit (card eval 1 y ago; cabg yrs ago) HEART Score: 7 ED Review of Systems ROS: Stated complaint: CHEST PAIN Other details as noted in HPI Comment: Unobtainable due to pts medical conditions Constitutional: no symptoms reported, see HPI. denies: chills, diaphoresis, fever, malaise Eyes: as per HPI. denies: eye pain ENT: as per HPI. denies: ear pain, throat pain Respiratory: no symptoms reported, see HPI. denies: cough, orthopnea Cardiovascular: as per HPI, chest pain. denies: palpitations, dyspnea on exertion, orthopnea Endocrine: no symptoms reported, see HPI. denies: excessive sweating, flushing , intolerance to cold, intolerance to heat Gastrointestinal: as per HPI, abdominal pain, nausea, vomiting. denies: diarrhea, constipation Genitourinary: as per HPI. denies: urgency, dysuria Musculoskeletal: as per HPI, back pain Skin: as per HPI. denies: rash, lesions Neurological: as per HPI. denies: headache, weakness Psychiatric: as per HPI. denies: anxiety Hematological/Lymphatic: as per HPI. denies: easy bleeding ED Past Medical Hx - Past Medical History Hx Hypertension: Yes Hx CVA: Yes (2009,2010 ischemic) Hx Heart Attack/AMI: No Hx Congestive Heart Failure: No Hx Diabetes: Yes Hx Deep Vein Thrombosis: No Hx Pulmonary Embolism: No Hx GERD: Yes Hx Liver Disease: No Hx Renal Disease: No Hx Arthritis: Yes Hx Seizures: No Hx Kidney Stones: No Hx Psychiatric Treatment: Yes (depression) Hx Asthma: No Hx COPD: No Hx Tuberculosis: No Hx Dementia: No Hx HIV: No Additional medical history: left-sided weakness,Neuropathy, UTI - Surgical History Hx Coronary Stent: Yes Hx Open Heart Surgery: Yes Hx Pacemaker: Yes Hx Internal Defibrillator: No Hx Cholecystectomy: No Hx Appendectomy: No Hx Breast Surgery: No Additional Surgical History: hysterectomy, stents, CABG - Social History Smoking Status: Current Every Day Smoker Substance Use Type: None - Medications Home Medications: Home Medications Medication Instructions Recorded Confirmed Last Taken Type Pantoprazole [Protonix TAB] 40 mg PO QDAY 03/20/17 04/04/17 04/04/17 History methOCARBAMOL [Robaxin TAB] 500 mg PO Q6H PRN #20 tablet 03/24/17 04/04/1704/04 15:14 Rx Ondansetron [Zofran Odt] 4 mg PO Q8HR PRN #15 tab.rapdis 03/28/17 04/04/1704/04 Rx traMADol [Ultram 50 MG tab] 50 mg PO Q6HR PRN #15 tablet 03/28/17 04/04/1704/04 Rx ED Physical Exam - General Limitations: No Limitations General appearance: alert - Head Head exam: Present: atraumatic - Eye Eye exam: Present: PERRL - ENT ENT exam: Present: normal exam, mucous membranes moist, other (poor dent) - Neck Neck exam: Present: normal inspection. Absent: tenderness, meningismus - Respiratory Respiratory exam: Present: normal lung sounds bilaterally, other (dec b bases) - Cardiovascular Cardiovascular Exam: Present: regular rate - GI/Abdominal GI/Abdominal exam: Present: soft, normal bowel sounds, other (obese). Absent: distended, tenderness, guarding, rebound, rigid, diminished bowel sounds, hyperactive bowel sounds, hypoactive bowel sounds, organomegaly, mass, bruit, pulsatile mass, hernia - Rectal Rectal exam: Present: deferred - Extremities Exam Extremities exam: Present: normal inspection, full ROM, normal capillary refill. Absent: tenderness, pedal edema, calf tenderness - Back Exam Back exam: Present: normal inspection. Absent: full ROM, tenderness, CVA tenderness (R), CVA tenderness (L), muscle spasm - Neurological Exam Neurological exam: Present: alert, oriented X3, CN II-XII intact - Psychiatric Psychiatric exam: Present: normal affect, normal mood - Skin Skin exam: Present: warm, dry, intact. Absent: rash ED Course Vital Signs 04/04/17 04/04/17 04/04/17 13:48 16:46 18:27 Temperature 99.0 F Pulse Rate 83 Respiratory 17 18 18 Rate Blood Pressure 183/100 O2 Sat by Pulse 99 Oximetry - Reevaluation(s) Reevaluation #1: 04/04/17 to er w co cp via ems p eating she developed n/v then cp substernal tight cabg 2012 saw cards [place] of state 1 y ago can not tell me details of visit and if stressed htn hpld dm lists several meds but I am not convinced she is compliant here 2 days ago and dc w htn and lbp today 12 lead nap trop neg bp was elevated on admit trended down wo med here in er Discussed with Dr Nance asa was given via ems ntg patch transderm on admit to er was pain free Shortly p admit pt co pain medicated with morphine vss bp 129/70 at this time. pcp Dr Jimmie Dudley is her card [place] of state Reevaluation #2: 04/04/17 17:[address] Hill- high risk cp w no local cards; here couple days ago Admit card sally du acs DALE score - Dale Score Age > 65: (1) Yes Aspirin use within the Past 7 Days: (1) Yes 3 or more CAD Risk Factors: (1) Yes 2 or more Angina events in past 24 hrs: (0) No Known CAD with more than 50% Stenosis: (0) No Elevated Cardiac Markers: (0) No ST Deviation Greater than 0.5mm: (0) No DALE Score: 3 ED Medical Decision Making - Lab Data Result diagrams: 04/04/17 14:13 04/04/17 14:13 - EKG Data EKG shows normal: ST-T waves (nonspecific) Rate: normal - Differential Diagnosis acs v gi etiology of her cp Critical care attestation.: If time is entered above; I have spent that time in minutes in the direct care of this critically ill patient, excluding procedure time. ED Disposition Clinical Impression: History of CVA with residual deficit, Chest pain, Diabetes, HTN (hypertension) , Leukopenia, Hypokalemia Disposition: OP ADMIT IP TO THIS HOSP Is pt being admited?: Yes Does the pt Need Aspirin: No (given per ems) Condition: Stable Time of Disposition: 17:06 <PILAR DAN - Last Filed: 04/04/17 18:57> ED Medical Decision Making - Lab Data Result diagrams: 04/04/17 14:13 04/04/17 14:13 Laboratory Results - last 24 hr 04/04/17 04/04/17 14:13 14:13 WBC 2.0 L RBC 4.66 Hgb 13.0 Hct 40.2 MCV 86 MCH 28 MCHC 32 RDW 14.5 Plt Count 103 L Sodium 141 Potassium 3.4 L Chloride 100.0 Carbon Dioxide 22 Anion Gap 22 BUN 11 Creatinine 0.7 Estimated GFR > 60 BUN/Creatinine Ratio 15.71 Glucose 153 H Calcium 9.5 Troponin T < 0.010 - EKG Data -: EKG Interpreted by Me - EKG Data 04/04/17 15:58 Sinus 83 normal axis normal intervals and T-wave inversion in 3 and V3 and V4 04/04/17 16:06 - Medical Decision Making I have seen and examined this patient myself. I agree with the PA or SCALE TECHNICIAN plan as discussed. 66-year-old female here with chest pain. Strong for CAD history. Plan to admit hospitalist service for chest pain rule out. Juan Dan
[2017-04-04 16:32] LABS: Blastocytes % (Manual) 0 %
[2017-04-04 16:33] LABS: Basophils % (Manual) 0 % (0.0-1.8)
[2017-04-04 16:35] LABS: Anisocytosis 1+; Diff Status Complete; Platelet Estimate Consistent w Auto
[2017-04-04 16:39] LABS: Albumin 3.8 g/dL (3.9-5); Bilirubin,Direct 0.3 mg/dL (0-0.2); Bilirubin,Indirect 0.5 mg/dL; Bilirubin,Total 0.8 mg/dL (0.1-1.2); Total Protein 7.7 g/dL (6.3-8.2)
[2017-04-04] MEDS ORDERED: MORPHINE IV ONE (16:39)
[2017-04-04] MEDS ORDERED: MORPHINE ONE (16:44)
[2017-04-04] MEDS ORDERED: ZOFRAN ODT PO PRN (17:37)
[2017-04-04] MEDS ORDERED: ULTRAM PO PRN (17:37)
--- NOTE | 2017-04-04 17:37 | History and Physical Report ---
History of Present Illness Date of examination: 04/04/17 Date of admission: 04/04/17 Chief complaint: CC L sided chest pain since last night. History of present illness: MENTASTA: 66 y/o female with pmh of CAD CVA HTN and Gerd comes in for RSCP since last night.Intermittent in nature.Non radiating.No diaphoresis or palpitations.No Sob. No fever/chills.Pain is 6/10 dull in character.No exacerbating or relieving factors - Past Medical History Hx Hypertension: Yes Hx CVA: Yes (2009,2010 ischemic) Hx GERD: Yes Hx Psychiatric Treatment: Yes (depression)Additional medical history: left- sided weakness,Neuropathy, UTI - Surgical History Hx Coronary Stent: Yes Hx Open Heart Surgery: Yes Hx Pacemaker: Yes Additional Surgical History: hysterectomy, stents, CABG - Social History Smoking Status: Current Every Day Smoker Substance Use Type: None - Medications Home Medications: Home Medications Medication Instructions Recorded Confirmed Last Taken Type Pantoprazole [Protonix TAB] 40 mg PO QDAY 03/20/17 04/04/17 04/04/17 History methOCARBAMOL [Robaxin TAB] 500 mg PO Q6H PRN #20 tablet 03/24/17 04/04/1704/04 15:14 Rx Ondansetron [Zofran Odt] 4 mg PO Q8HR PRN #15 tab.rapdis 03/28/17 04/04/1704/04 Rx traMADol [Ultram 50 MG tab] 50 mg PO Q6HR PRN #15 tablet 03/28/17 04/04/1704/04 Rx Review of Systems Stated complaint: CHEST PAIN Other details as noted in HPI Comment: Unobtainable due to pts medical conditions Constitutional: no symptoms reported, see HPI. denies: chills, diaphoresis, fever, malaise Eyes: as per HPI. denies: eye pain ENT: as per HPI. denies: ear pain, throat pain Respiratory: no symptoms reported, see HPI. denies: cough, orthopnea Cardiovascular: as per HPI, chest pain. denies: palpitations, dyspnea on exertion, orthopnea Endocrine: no symptoms reported, see HPI. denies: excessive sweating, flushing , intolerance to cold, intolerance to heat Gastrointestinal: as per HPI, abdominal pain, nausea, vomiting. denies: diarrhea, constipation Genitourinary: as per HPI. denies: urgency, dysuria Musculoskeletal: as per HPI, back pain Skin: as per HPI. denies: rash, lesions Neurological: as per HPI. denies: headache, weakness Psychiatric: as per HPI. denies: anxiety Hematological/Lymphatic: as per HPI. denies: easy bleeding Medications and Allergies Allergies Allergy/AdvReac Type Severity Reaction Status Date / Time No Known Allergies Allergy Verified 01/18/16 23:49 Home Medications Medication Instructions Recorded Confirmed Last Taken Type Pantoprazole [Protonix TAB] 40 mg PO QDAY 03/20/17 04/04/17 04/04/17 History methOCARBAMOL [Robaxin TAB] 500 mg PO Q6H PRN #20 tablet 03/24/17 04/04/1704/04 15:14 Rx Ondansetron [Zofran Odt] 4 mg PO Q8HR PRN #15 tab.rapdis 03/28/17 04/04/1704/04 Rx traMADol [Ultram 50 MG tab] 50 mg PO Q6HR PRN #15 tablet 03/28/17 04/04/1704/04 Rx Exam - Constitutional Vitals: Temp Pulse Resp BP Pulse Ox 99.0 F 83 18 183/100 99 04/04/17 13:48 04/04/17 13:48 04/04/17 16:46 04/04/17 13:48 04/04/17 13:48 General appearance: Present: no acute distress, well-nourished - EENT Eyes: Present: PERRL ENT: hearing intact, clear oral mucosa - Neck Neck: Present: supple, normal ROM - Respiratory Respiratory effort: normal Respiratory: bilateral: CTA - Cardiovascular Heart rate: 70 Rhythm: regular Heart Sounds: Present: S1 & S2. Absent: rub, click - Extremities Extremities: no ischemia, pulses intact, pulses symmetrical, No edema Peripheral Pulses: within normal limits - Abdominal General gastrointestinal: Present: soft, non-tender, non-distended, normal bowel sounds Female genitourinary: Present: normal - Rectal Rectal Exam: deferred - Integumentary Integumentary: Present: clear, warm, dry - Musculoskeletal Musculoskeletal: left sided weakness (4/5 power LUe and LLE) - Psychiatric Psychiatric: appropriate mood/affect, intact judgment & insight - Neurologic Neurologic: CNII-XII intact, moves all extremities - Allied Health Allied health notes reviewed: nursing, case management Results - Labs CBC & Chem 7: 04/04/17 14:13 04/04/17 14:13 Labs: Laboratory Last Values WBC 2.0 K/mm3 (4.5-11.0) L 04/04/17 14:13 RBC 4.66 M/mm3 (3.65-5.03) 04/04/17 14:13 Hgb 13.0 gm/dl (10.1-14.3) 04/04/17 14:13 Hct 40.2 % (30.3-42.9) 04/04/17 14:13 MCV 86 fl (79-97) 04/04/17 14:13 MCH 28 pg (28-32) 04/04/17 14:13 MCHC 32 % (30-34) 04/04/17 14:13 RDW 14.5 % (13.2-15.2) 04/04/17 14:13 Plt Count 103 K/mm3 (140-440) L 04/04/17 14:13 Add Manual Diff Complete 04/04/17 14:13 Total Counted 100 04/04/17 14:13 Seg Neuts % (Manual) 56.0 % (40.0-70.0) 04/04/17 14:13 Band Neutrophils % 0 % 04/04/17 14:13 Lymphocytes % (Manual) 39.0 % (13.4-35.0) H 04/04/17 14:13 Reactive Lymphs % (Man) 0 % 04/04/17 14:13 Monocytes % (Manual) 4.0 % (0.0-7.3) 04/04/17 14:13 Eosinophils % (Manual) 1.0 % (0.0-4.3) 04/04/17 14:13 Basophils % (Manual) 0 % (0.0-1.8) 04/04/17 14:13 Metamyelocytes % 0 % 04/04/17 14:13 Myelocytes % 0 % 04/04/17 14:13 Promyelocytes % 0 % 04/04/17 14:13 Blast Cells % 0 % 04/04/17 14:13 Nucleated RBC % Not Reportable 04/04/17 14:13 Seg Neutrophils # Man 1.1 K/mm3 (1.8-7.7) L 04/04/17 14:13 Band Neutrophils # 0.0 K/mm3 04/04/17 14:13 Lymphocytes # (Manual) 0.8 K/mm3 (1.2-5.4) L 04/04/17 14:13 Abs React Lymphs (Man) 0.0 K/mm3 04/04/17 14:13 Monocytes # (Manual) 0.1 K/mm3 (0.0-0.8) 04/04/17 14:13 Eosinophils # (Manual) 0.0 K/mm3 (0.0-0.4) 04/04/17 14:13 Basophils # (Manual) 0.0 K/mm3 (0.0-0.1) 04/04/17 14:13 Metamyelocytes # 0.0 K/mm3 04/04/17 14:13 Myelocytes # 0.0 K/mm3 04/04/17 14:13 Promyelocytes # 0.0 K/mm3 04/04/17 14:13 Blast Cells # 0.0 K/mm3 04/04/17 14:13 WBC Morphology Not Reportable 04/04/17 14:13 Hypersegmented Neuts Not Reportable 04/04/17 14:13 Hyposegmented Neuts Not Reportable 04/04/17 14:13 Hypogranular Neuts Not Reportable 04/04/17 14:13 Smudge Cells Not Reportable 04/04/17 14:13 Toxic Granulation Not Reportable 04/04/17 14:13 Toxic Vacuolation Not Reportable 04/04/17 14:13 Dohle Bodies Not Reportable 04/04/17 14:13 Pelger-Huet Anomaly Not Reportable 04/04/17 14:13 Barrie Rods Not Reportable 04/04/17 14:13 Platelet Estimate Consistent w auto 04/04/17 14:13 Clumped Platelets Not Reportable 04/04/17 14:13 Plt Clumps, EDTA Not Reportable 04/04/17 14:13 Large Platelets Not Reportable 04/04/17 14:13 Giant Platelets Not Reportable 04/04/17 14:13 Platelet Satelliting Not Reportable 04/04/17 14:13 Plt Morphology Comment Not Reportable 04/04/17 14:13 RBC Morphology Not Reportable 04/04/17 14:13 Dimorphic RBCs Not Reportable 04/04/17 14:13 Polychromasia Not Reportable 04/04/17 14:13 Hypochromasia Not Reportable 04/04/17 14:13 Poikilocytosis Not Reportable 04/04/17 14:13 Anisocytosis 1+ 04/04/17 14:13 Microcytosis Not Reportable 04/04/17 14:13 Macrocytosis Not Reportable 04/04/17 14:13 Spherocytes Not Reportable 04/04/17 14:13 Pappenheimer Bodies Not Reportable 04/04/17 14:13 Sickle Cells Not Reportable 04/04/17 14:13 Target Cells Not Reportable 04/04/17 14:13 Tear Drop Cells Not Reportable 04/04/17 14:13 Ovalocytes Not Reportable 04/04/17 14:13 Helmet Cells Not Reportable 04/04/17 14:13 [place] Bodies Not Reportable 04/04/17 14:13 [place] Rings Not Reportable 04/04/17 14:13 [place] Cells Not Reportable 04/04/17 14:13 Bite Cells Not Reportable 04/04/17 14:13 Crenated Cell Not Reportable 04/04/17 14:13 Elliptocytes Not Reportable 04/04/17 14:13 Acanthocytes (Spur) Not Reportable 04/04/17 14:13 Rouleaux Not Reportable 04/04/17 14:13 Hemoglobin C Crystals Not Reportable 04/04/17 14:13 Schistocytes Not Reportable 04/04/17 14:13 Malaria parasites Not Reportable 04/04/17 14:13 Joe Bodies Not Reportable 04/04/17 14:13 Hem Pathologist Commnt No 04/04/17 14:13 Sodium 141 mmol/L (137-145) 04/04/17 14:13 Potassium 3.4 mmol/L (3.6-5.0) L 04/04/17 14:13 Chloride 100.0 mmol/L (98-107) 04/04/17 14:13 Carbon Dioxide 22 mmol/L (22-30) 04/04/17 14:13 Anion Gap 22 mmol/L 04/04/17 14:13 BUN 11 mg/dL (7-17) 04/04/17 14:13 Creatinine 0.7 mg/dL (0.7-1.2) 04/04/17 14:13 Estimated GFR > 60 ml/min 04/04/17 14:13 BUN/Creatinine Ratio 15.71 % 04/04/17 14:13 Glucose 153 mg/dL (65-100) H 04/04/17 14:13 Calcium 9.5 mg/dL (8.4-10.2) 04/04/17 14:13 Total Bilirubin 0.80 mg/dL (0.1-1.2) 04/04/17 14:13 Direct Bilirubin 0.3 mg/dL (0-0.2) H 04/04/17 14:13 Indirect Bilirubin 0.5 mg/dL 04/04/17 14:13 AST 27 units/L (5-40) 04/04/17 14:13 ALT 17 units/L (7-56) 04/04/17 14:13 Alkaline Phosphatase 113 units/L (35-129) 04/04/17 14:13 Troponin T < 0.010 ng/mL (0.00-0.029) 04/04/17 14:13 Total Protein 7.7 g/dL (6.3-8.2) 04/04/17 14:13 Albumin 3.8 g/dL (3.9-5) L 04/04/17 14:13 Albumin/Globulin Ratio 1.0 % 04/04/17 14:13 - Imaging and Cardiology EKG: report reviewed Chest x-ray: report reviewed Assessment and Plan Advance Directives: Yes (Full code) VTE prophylaxis?: Chemical Plan of care discussed with patient/family: Yes - Patient Problems (1) Chest pain Current Visit: Yes Status: Acute Qualifiers: Chest pain type: unspecified Ischemic chest pain type: I Qualified Code(s ): R07.9 - Chest pain, unspecified Plan to address problem: Serial cardiac enzymes and Lexiscan. Diff Dx of costochondritis and GERD (2) HTN (hypertension) Current Visit: Yes Status: Chronic Qualifiers: Hypertension type: essential hypertension Qualified Code(s): I10 - Essential (primary) hypertension Plan to address problem: Not on any meds (3) Hypomagnesemia Current Visit: Yes Status: Acute Plan to address problem: Supplemented (4) Hypokalemia Current Visit: Yes Status: Acute Plan to address problem: Supplemented (5) T2DM (type 2 diabetes mellitus) Current Visit: Yes Status: Chronic Qualifiers: Diabetes mellitus complication status: without complication Diabetes mellitus complication detail: D Diabetic retinopathy severity: D Proliferative retinopathy type: P Diabetes mellitus macular edema: D Diabetes mellitus prison insulin use: without prison use Laterality: L Chronic kidney disease stage: C Qualified Code(s): E11.9 - Type 2 diabetes mellitus without complications Plan to address problem: New onset?? Initiated on Merformin and Glimepride 1 mg po qd plus coverage (6) Leukopenia Current Visit: Yes Status: Acute Qualifiers: Leukopenia type: L Neutropenia type: unspecified Qualified Code(s): D70.9 - Neutropenia, unspecified Plan to address problem: Cyclical?? (7) CAD (coronary artery disease) Current Visit: Yes Status: Chronic Qualifiers: Coronary Disease-Associated Artery/Lesion type: [place] artery [place] vs. transplanted heart: N Associated angina: with unspecified angina Plan to address problem: Not on any medicines ASA 162 mg initiated (8) History of CVA with residual deficit Current Visit: Yes Status: Chronic (9) Malnutrition Current Visit: Yes Status: Chronic Qualifiers: Malnutrition type: M Protein-calorie malnutrition severity: mild Qualified Code(s): E44.1 - Mild protein-calorie malnutrition Plan to address problem: Albumin 3.8 Dietary supplement ordered (10) DVT prophylaxis Current Visit: Yes Status: Acute Plan to address problem: On Lovenox
[2017-04-04] MEDS ORDERED: TYLENOL PO PRN (17:38)
[2017-04-04] MEDS ORDERED: ZOFRAN IV PRN (17:38)
[2017-04-04] MEDS ORDERED: DULCOLAX PR PRN (17:38)
[2017-04-04] MEDS ORDERED: MILK OF MAGNESIA PO PRN (17:38)
--- NOTE | 2017-04-04 18:14 | XRay Report ---
FINAL REPORT EXAM: XR CHEST ROUTINE 2V HISTORY: cp TECHNIQUE: upright single view chest PRIORS: None. FINDINGS: Cardiac and mediastinal contours are unremarkable. No focal pulmonary infiltrate is identified. No pleural fluid collection seen. Pulmonary vasculature is unremarkable. There is left pacemaker. Lead wires intact. Sternal surgical plates and screws are noted. IMPRESSION: Pacemaker Sternal surgical plates and screws No acute findings in the chest
[2017-04-04] MEDS ORDERED: DILAUDID ONE (18:18)
[2017-04-04] MEDS: DILAUDID IV PRN ×2 (18:27→21:12)
[2017-04-04 20:59] LABS: Creatine Kinase MB 3.1 ng/mL (0.0-4.0)
[2017-04-04] MEDS: PEPCID PO SCH (21:11)
[2017-04-05 00:27] LABS: Creatine Kinase MB 3.2 ng/mL (0.0-4.0)
[2017-04-05] MEDS ORDERED: MAGNESIUM SULFATE 2GM/50ML 2 GM/50 ML BAG IV ONE (06:37)
[2017-04-05] MEDS ORDERED: K-DUR PO ONE (06:38)
[2017-04-05 07:11] LABS: Creatine Kinase MB 3.2 ng/mL (0.0-4.0)
[2017-04-05 07:16] LABS: Alanine Aminotransferase 18 units/L (7-56); Albumin 3.5 g/dL (3.9-5); Albumin/Globulin Ratio 0.9 %; Alkaline Phosphatase 108 units/L (35-129); Anion Gap 21 mmol/L; Blood Urea Nitrogen 12 mg/dL (7-17); Calcium 9.2 mg/dL (8.4-10.2); Carbon Dioxide 26 mmol/L (22-30); Chloride 99.1 mmol/L (98-107); Glucose 123 mg/dL (65-100); Potassium 3.8 mmol/L (3.6-5.0); Sodium 142 mmol/L (137-145); Total Protein 7.2 g/dL (6.3-8.2)
--- NOTE | 2017-04-05 07:54 | Admit Criteria Form ---
Admission Criteria Documentation: CARDIOLOGY GRG Clinical Indications for Admission to Inpatient Care ([place]/check or initial the applicable condition/criteria) Hospital admission is needed for appropriate care of the patient because of ANY ONE of the following: [ ] I. Hemodynamic instability as indicated by ALL of the following (1)(2)(3) (4)(5)(6)(7)(8)(9)(10) [ ]a) Vital sign abnormality not readily corrected by appropriate treatment with 12-24 hours for ANY ONE: [ ]i) Hypotension that persists despite appropriate treatment (eg, volume repletion) [ ]ii) Tachycardiathat persists despite appropriate tx ( e.g., analgesia, fluids, sedation as indicated [ ]iii) Orthostatic vital sign changes that persists despite appropriate treatment (eg, volume repletion) [ ]b) Vital sign abnormailty that is severe indicated by ANY ONE of the following: [ ]i) Inadequate perfusion indicated by ANY ONE of the following: [ ] 1) Lactic acidosis (> 2 mmol/L) [ ] 2) New abnormal capillary refill (> 3 seconds) [ ] 3) Reduced urine output [ ] 4) New altered mental status [ ] 5) Myocardial Ischemia [ ] 6) Other metabolic acidosis (arterial pH <7.35 ) not otherwise explained. [ ]ii) Mean arterial pressure[A] less than 60 mm Hg [ ]iii) Mean arterial pressure[A] less than 70 mm Hg after 30 minutes of appropriate treatment (eg, fluid resuscitation) [ ]iv) Sustained heart rate greater than 120 beats per minute in adult or child 6 years or older[B] [ ]v) IV inotropic or vasopressor medication required to maintain adequate blood pressure or perfusion [ ] II. Severe heart failure as indicated by ANY ONE of the following(17)(18) [ ]a) Respiratory distress [ ]b) Hypotension [ ]c) Debilitating anasarca refractory to therapy (eg, tissue breakdown with infection)[C](19) [ ]d) Cardiac arrhythmias of immediate concern [ ]e) Myocardial ischemia [ ] III. Cardiac arrhythmias or findings of immediate concern indicated by ANY ONE of the following (21)(22): [ ] a) Heart rhythms that are inherently dangerous or unstable indicated by ANY ONE of the following (23)(24)(25): [ ] i) Resuscitated ventricular fibrillation or cardiac arrest [ ] ii) Ventricular escape rhythm [ ] iii) Sustained ventricular tachycardia (30 seconds or more of ventricular rhythm at greater than 100 beats per minute) [ ] iv) Nonsustained ventricular tachycardia and ANY ONE of the following: [ ] 1) Suspected cardiac ischemia as cause or consequence of ventricular tachycardia [ ] 2) Acute myocarditis [ ] b) Unstable cardiac conduction defects indicated by ANY ONE of the following(25)(26)(27) [ ] i) Type II second-degree atrioventricular block [ ]ii) Third-degree atrioventricular block [ ]iii) New-onset left bundle branch block with suspected myocardial ischemia [ ]c) Any heart rhythm and ANY ONE of the following (23)(24)(28)(29) (30) [ ] i) Continuous long-term ECG monitoring needed (e.g., initiation of drug requiring monitoring for more than 24 hours) [ ] ii) Patient has automatic implanted cardioverter defibrillator that is repeatedly firing, malfunctioning, or in need of immediate adjustment of settings beyond the scope of ambulatory or observation care [ ]d) Heart rhythms of concern due to ANY ONE of the following: [ ] i) Hypotension [ ] ii) Respiratory distress [ ] iii) Association with other significant symptoms (e.g., bradycardia with syncope or ongoing dizziness, supraventricular tachycardia with chest pain (28)(29)(31) [ ] IV. Monitoring for cardiac contusion beyond the scope of observation care needed [A](32)(33)(34) [ ] V. Surgical or device complication (e.g., valve replacement complication , ICD disfunction or pacemaker dysfunction) (49)(50)(51)(52)(53)(54) [ ] . Inpatient palliative care needed. [F](51)(52) Also use Inpatient Palliative Care Criteria [ ] VII. Nonbacterial thrombotic ([place]) endocarditis(43)(44)(55)(56)(57) [X] VIII. Cardiology condition, symptom, or finding for which emergency and observation care has failed or are not considered appropriate. [ ] IX. Acute valvular disease requiring inpatient as indicated by ANY ONE of the following (40)(41) [ ]a) Acute valvular regurgitation (42) [ ]b) Noninfectious valvulitis (43)(44) [ ]c) Obstructive valve thrombosis (45)(46) [ ]d) Paravalvular leak(47)(48) [ ]e) Other significant valvular disorder remaining after emergency or observation level of care (as appropriate) [ ]X. Pericardial disease requiring inpatient treatment as indicated by ANY ONE of the following (35)(36)(37)(38) [ ]a) Suspected tamponade [ ]b) Hemopericardium [ ]c) Other significant pericardial disorder remaining after emergency or observation level of care (as appropriate)(39) [ ] XI. Cardiac ischemia beyond scope of emergency and observation care. [ ] XII. Cyanotic heart disease requiring inpatient care as indicated by 1 or more of the following(58)(59)(60): [ ]a) Acute onset of hypoxemia [ ]b) Exacerbation [ ] XIII. Hypertension requiring inpatient treatment as indicated by ANYONE of the following(11)(12)(13)(14): [ ]a) Severe hypertension (SBP greater than 180 mm Hg or DBP greater than 110 mm Hg, or greater than the 95th percentile for age, gender, and height in pediatric patients) that cannot be controlled (eg, to SBP less than 160 mm Hg and DBP less than 100 mm Hg) by emergency department or observation care treatment(15) [ ]b) Acute end organ damage secondary to hypertension (SBP greater than 140 mm Hg or DBP greater than 90 mm Hg) as indicated by ANYONE of the following: [ ] i) Hypertensive encephalopathy (eg, Altered mental status)(16) [ ] ii) Cerebral infarction [ ] iii) Intracranial hemorrhage [ ] iv) Myocardial ischemia or infarction [ ] v) Heart failure (eg, pulmonary edema) [ ] vi) Aortic dissection [ ] vii) Increased creatinine (new) with reduction of more than 50% in estimated glomerular filtration rate from baseline [ ] viii) Papilledema [ ] ix) Retinal hemorrhage [ ] x) Microangiopathic hemolytic anemia [ ] xi) Seizure [ ] xii) Other significant finding secondary to hypertension [ ] XIV. Complications of transplanted heart indicated by ANY ONE of the following(61): [ ]a) Acute graft rejection requiring inpatient management (eg, intravenous imunosuppression)(62)(63) [ ]b) Acute graft heart failure indicated by ANY ONE of the following(64): [ ] i) Hemodynamic instability [ ] ii) Cardiac arrhythmias of immediate concern [ ] iii) Pulmonary edema that is very severe (eg, mechanical ventilation needed, imminent or likely, need for 100% oxygen to keep oxygen saturation above 90%) [ ] iv) Pulmonary edema that is persistent as indicated by ALL of the following: [ ] 1) New need for oxygen therapy to keep oxygen saturation above 90 % (or increased FiO2 need from baseline) [ ] 2) Has not improved sufficiently with emergency department or observation care IV diuretics or other heart failure treatments[E]. [ ] iv) Altered mental status that is severe or persistent [ ] iv) Increased creatinine (new on laboratory test) with reduction of more than 50% in estimated glomerular filtration rate from baseline [ ] iv) Progressively (ongoing) rising creatinine (known from past laboratory test) with reduction of more than 25% in estimated glomerular filtration rate from baseline [ ] iv) Acute renal failure [ ] iv) Acute peripheral ischemia (eg, examination shows pulseless, cool, mottled, or cyanotic extremity) [ ] iv) Pulmonary artery catheter monitoring needed [ ] iv) Other sign or symptom of heart failure requiring inpatient treatment (ie, too severe or not responsive to outpatient and observation care treatment) [ ]c) Infection requiring inpatient management (eg, Hemodynamic instability, need for intravenous antimicrobial treatment)(66)(67)(68)(69)(70) [ ]d) Cardiac allograft vasculopathy requiring inpatient management (eg evidence of cardiacischemia)(71) [ ]e) Other complication of transplanted heart (eg, stroke, severe pulmonary hypertension, severe valvular dysfunction) requiring inpatient management(72) The original [employer] content created by [employer] has been revised. The portions of the content which have been revised are identified through the use of italic text or in bold, and [facility] has neither reviewed nor approved the modified material. All other unmodified content is copyright [facility]. Please see references footnoted in the original [facility] edition 2017 Admission Criteria Met: Yes
[2017-04-05] MEDS ORDERED: AMARYL PO SCH (08:00)
[2017-04-05] MEDS: NOVOLOG SUB-Q SCH ×2 (08:12→23:00)
[2017-04-05] MEDS ORDERED: LEXISCAN IV ONE ×2 (08:18→08:40)
--- NOTE | 2017-04-05 10:14 | Discharge Summary ---
Providers - Providers Date of Admission: 04/04/17 17:38 Attending physician: LALA CUBA MD 04/05/17 06:45 Consult to Dietitian/Nutrition [CONS] Routine Physician Instructions: supplements Reason For Exam: malnutrition Reason for Consult: Pt needs oral supplement Primary care physician: NUCLEAR MEDICINE CHIEF TECHNOLOGIST Hospitalization Condition: Stable Disposition: DC-01 TO HOME OR SELFCARE Time spent for discharge: 35 mins Exam - Constitutional Vitals: Temp Pulse Resp BP Pulse Ox 97.3 F L 72 18 150/81 91 04/05/17 08:02 04/05/17 05:29 04/05/17 08:02 04/05/17 08:02 04/05/17 05:29 Plan Activity: advance as tolerated, fall precautions Diet: low fat Special Instructions: record daily weights, record daily BP diary Additional Instructions: continue Lisinopril Follow up with: PRIMARY CARE, [Primary Care Provider] - 3-5 Days MIS VIVAS MD [Staff Physician] - 7 Days Prescriptions: Aspirin [Aspirin BABY CHEW TAB] 81 mg PO QDAY #30 tab.chew Glimepiride [Amaryl] 1 mg PO QDDIAB #30 tablet metFORMIN [Glucophage] 500 mg PO BIDDIAB #30 tablet
[2017-04-05] MEDS: BABY ASPIRIN PO SCH (11:10)
[2017-04-05] MEDS: GLUCOPHAGE PO SCH ×2 (11:10→18:57)
[2017-04-05] MEDS: PROTONIX PO SCH (11:11)
[2017-04-05] MEDS: PEPCID PO SCH ×2 (11:12→22:59)
--- NOTE | 2017-04-05 14:55 | Progress Note ---
Assessment and Plan Assessment and plan: Patient is a 66 y/o female with pmh of CAD, CVA, HTN and Gerd comes in for RSCP since last night. Intermittent in nature. Non radiating. No diaphoresis or palpitations. No Sob. Also associated is an epigastric pain that is reproducible. No fever/chills.Pain is 6/10 dull in character.No exacerbating or relieving factors. This is complicated by family dynamics which the daughter reports that the patient is requiring 24- 7 care which they cannot provide at this time. She is markedly lethargic at times. Patients medical records is spotty, appears to have had some medical concerns in the past such as DM but is not on any medications. Will contact family for med recs and also to understand where she has been cared for in the past - Patient Problems (1) Atypical Chest pain Serial cardiac enzymes and Lexiscan are negative LIKELY GERD Will get GI evaluation (2) Chronic Debility * Physical therapy evaluate and treat * case management consult for placement (3) Hypomagnesemia Current Visit: Yes Status: Acute Plan to address problem: Supplemented (4) Hypokalemia Current Visit: Yes Status: Acute Plan to address problem: Supplemented (5) T2DM (type 2 diabetes mellitus) Current Visit: Yes Status: Chronic Qualifiers: Diabetes mellitus complication status: without complication Diabetes mellitus complication detail: D Diabetic retinopathy severity: D Proliferative retinopathy type: P Diabetes mellitus macular edema: D Diabetes mellitus intermission coordinator insulin use: without senior care use Laterality: L Chronic kidney disease stage: C Qualified Code(s): E11.9 - Type 2 diabetes mellitus without complications Plan to address problem: New onset?? Initiated on Merformin 1 mg po qd plus coverage A1c 7.3 (6) Leukopenia Current Visit: Yes Status: Acute Qualifiers: Leukopenia type: L Neutropenia type: unspecified Qualified Code(s): D70.9 - Neutropenia, unspecified Plan to address problem: Pancytopenia with thrombocytopenia and leukopenia. Monitor (7) CAD (coronary artery disease) Current Visit: Yes Status: Chronic Qualifiers: Coronary Disease-Associated Artery/Lesion type: [place] artery [place] vs. transplanted heart: N Associated angina: with unspecified angina Plan to address problem: Not on any medicines Hold ASA due to thrombocytopena Await record from family (8) History of CVA with residual deficit Current Visit: Yes Status: Chronic (9) Malnutrition Current Visit: Yes Status: Chronic Qualifiers: Malnutrition type: M Protein-calorie malnutrition severity: mild Qualified Code(s): E44.1 - Mild protein-calorie malnutrition Plan to address problem: Albumin 3.8 Dietary supplement ordered (10) DVT prophylaxis Current Visit: Yes Status: Acute Plan to address problem: On Lovenox History Interval history: Patient seen and examined today and despite negative stress test still complains of epigastric type pain. The daughter also reports that the patient requires more care than they can provide at home. Hospitalist Physical - Physical exam Narrative exam: VITAL SIGNS: Reviewed. GENERAL: The patient appeared well nourished and normally developed. Otherwise appears uncomfortable Vital signs as documented. HEAD: No signs of head trauma. EYES: Pupils are equal. Extraocular motions intact. EARS: Hearing grossly intact. MOUTH: Oropharynx is normal. NECK: No adenopathy, no JVD. CHEST: Chest with clear breath sounds bilaterally. No wheezes, rales, or rhonchi. CARDIAC: Regular rate and rhythm. S1 and S2, without murmurs, gallops, or rubs. VASCULAR: No Edema. Peripheral pulses normal and equal in all extremities. ABDOMEN: Soft, without detectable tenderness. No sign of distention. No rebound or guarding, and no masses palpated. Bowel Sounds normal. MUSCULOSKELETAL: Reproducible substernal pain. Good range of motion of all major joints. Extremities without clubbing, cyanosis or edema. NEUROLOGIC EXAM: Alert and oriented x 3. No focal sensory or strength deficits. Speech normal. Follows commands. PSYCHIATRIC: Mood anxious. SKIN: No rash or lesions. - Constitutional Vitals: Temp Pulse Resp BP Pulse Ox 97.3 F L 82 18 146/69 91 04/05/17 08:02 04/05/17 09:58 04/05/17 08:02 04/05/17 09:58 04/05/17 05:29 General appearance: Present: no acute distress, well-nourished Results - Labs CBC & Chem 7: 04/04/17 14:13 04/05/17 05:15 Labs: Laboratory Last Values WBC 2.0 K/mm3 (4.5-11.0) L 04/04/17 14:13 RBC 4.66 M/mm3 (3.65-5.03) 04/04/17 14:13 Hgb 13.0 gm/dl (10.1-14.3) 04/04/17 14:13 Hct 40.2 % (30.3-42.9) 04/04/17 14:13 MCV 86 fl (79-97) 04/04/17 14:13 MCH 28 pg (28-32) 04/04/17 14:13 MCHC 32 % (30-34) 04/04/17 14:13 RDW 14.5 % (13.2-15.2) 04/04/17 14:13 Plt Count 103 K/mm3 (140-440) L 04/04/17 14:13 Add Manual Diff Complete 04/04/17 14:13 Total Counted 100 04/04/17 14:13 Seg Neuts % (Manual) 56.0 % (40.0-70.0) 04/04/17 14:13 Band Neutrophils % 0 % 04/04/17 14:13 Lymphocytes % (Manual) 39.0 % (13.4-35.0) H 04/04/17 14:13 Reactive Lymphs % (Man) 0 % 04/04/17 14:13 Monocytes % (Manual) 4.0 % (0.0-7.3) 04/04/17 14:13 Eosinophils % (Manual) 1.0 % (0.0-4.3) 04/04/17 14:13 Basophils % (Manual) 0 % (0.0-1.8) 04/04/17 14:13 Metamyelocytes % 0 % 04/04/17 14:13 Myelocytes % 0 % 04/04/17 14:13 Promyelocytes % 0 % 04/04/17 14:13 Blast Cells % 0 % 04/04/17 14:13 Nucleated RBC % Not Reportable 04/04/17 14:13 Seg Neutrophils # Man 1.1 K/mm3 (1.8-7.7) L 04/04/17 14:13 Band Neutrophils # 0.0 K/mm3 04/04/17 14:13 Lymphocytes # (Manual) 0.8 K/mm3 (1.2-5.4) L 04/04/17 14:13 Abs React Lymphs (Man) 0.0 K/mm3 04/04/17 14:13 Monocytes # (Manual) 0.1 K/mm3 (0.0-0.8) 04/04/17 14:13 Eosinophils # (Manual) 0.0 K/mm3 (0.0-0.4) 04/04/17 14:13 Basophils # (Manual) 0.0 K/mm3 (0.0-0.1) 04/04/17 14:13 Metamyelocytes # 0.0 K/mm3 04/04/17 14:13 Myelocytes # 0.0 K/mm3 04/04/17 14:13 Promyelocytes # 0.0 K/mm3 04/04/17 14:13 Blast Cells # 0.0 K/mm3 04/04/17 14:13 WBC Morphology Not Reportable 04/04/17 14:13 Hypersegmented Neuts Not Reportable 04/04/17 14:13 Hyposegmented Neuts Not Reportable 04/04/17 14:13 Hypogranular Neuts Not Reportable 04/04/17 14:13 Smudge Cells Not Reportable 04/04/17 14:13 Toxic Granulation Not Reportable 04/04/17 14:13 Toxic Vacuolation Not Reportable 04/04/17 14:13 Dohle Bodies Not Reportable 04/04/17 14:13 Pelger-Huet Anomaly Not Reportable 04/04/17 14:13 Barrie Rods Not Reportable 04/04/17 14:13 Platelet Estimate Consistent w auto 04/04/17 14:13 Clumped Platelets Not Reportable 04/04/17 14:13 Plt Clumps, EDTA Not Reportable 04/04/17 14:13 Large Platelets Not Reportable 04/04/17 14:13 Giant Platelets Not Reportable 04/04/17 14:13 Platelet Satelliting Not Reportable 04/04/17 14:13 Plt Morphology Comment Not Reportable 04/04/17 14:13 RBC Morphology Not Reportable 04/04/17 14:13 Dimorphic RBCs Not Reportable 04/04/17 14:13 Polychromasia Not Reportable 04/04/17 14:13 Hypochromasia Not Reportable 04/04/17 14:13 Poikilocytosis Not Reportable 04/04/17 14:13 Anisocytosis 1+ 04/04/17 14:13 Microcytosis Not Reportable 04/04/17 14:13 Macrocytosis Not Reportable 04/04/17 14:13 Spherocytes Not Reportable 04/04/17 14:13 Pappenheimer Bodies Not Reportable 04/04/17 14:13 Sickle Cells Not Reportable 04/04/17 14:13 Target Cells Not Reportable 04/04/17 14:13 Tear Drop Cells Not Reportable 04/04/17 14:13 Ovalocytes Not Reportable 04/04/17 14:13 Helmet Cells Not Reportable 04/04/17 14:13 [place] Bodies Not Reportable 04/04/17 14:13 New Site Rings Not Reportable 04/04/17 14:13 [place] Cells Not Reportable 04/04/17 14:13 Bite Cells Not Reportable 04/04/17 14:13 Crenated Cell Not Reportable 04/04/17 14:13 Elliptocytes Not Reportable 04/04/17 14:13 Acanthocytes (Spur) Not Reportable 04/04/17 14:13 Rouleaux Not Reportable 04/04/17 14:13 Hemoglobin C Crystals Not Reportable 04/04/17 14:13 Schistocytes Not Reportable 04/04/17 14:13 Malaria parasites Not Reportable 04/04/17 14:13 Joe Bodies Not Reportable 04/04/17 14:13 Hem Pathologist Commnt No 04/04/17 14:13 Sodium 142 mmol/L (137-145) 04/05/17 05:15 Potassium 3.8 mmol/L (3.6-5.0) 04/05/17 05:15 Chloride 99.1 mmol/L (98-107) 04/05/17 05:15 Carbon Dioxide 26 mmol/L (22-30) 04/05/17 05:15 Anion Gap 21 mmol/L 04/05/17 05:15 BUN 12 mg/dL (7-17) 04/05/17 05:15 Creatinine 0.8 mg/dL (0.7-1.2) 04/05/17 05:15 Estimated GFR > 60 ml/min 04/05/17 05:15 BUN/Creatinine Ratio 15.00 % 04/05/17 05:15 Glucose 123 mg/dL (65-100) H 04/05/17 05:15 Hemoglobin A1c 7.3 % (4-6) H 04/04/17 14:13 Calcium 9.2 mg/dL (8.4-10.2) 04/05/17 05:15 Magnesium 1.10 mg/dL (1.7-2.3) L 04/04/17 17:14 Total Bilirubin 0.60 mg/dL (0.1-1.2) 04/05/17 05:15 Direct Bilirubin 0.3 mg/dL (0-0.2) H 04/04/17 14:13 Indirect Bilirubin 0.5 mg/dL 04/04/17 14:13 AST 24 units/L (5-40) 04/05/17 05:15 ALT 18 units/L (7-56) 04/05/17 05:15 Alkaline Phosphatase 108 units/L (35-129) 04/05/17 05:15 Total Creatine Kinase 105 units/L (30-135) 04/05/17 05:16 CK-MB (CK-2) 3.2 ng/mL (0.0-4.0) 04/05/17 05:16 CK-MB (CK-2) Rel Index 3.0 (0-4) 04/05/17 05:16 Troponin T 0.012 ng/mL (0.00-0.029) 04/05/17 05:16 Total Protein 7.2 g/dL (6.3-8.2) 04/05/17 05:15 Albumin 3.5 g/dL (3.9-5) L 04/05/17 05:15 Albumin/Globulin Ratio 0.9 % 04/05/17 05:15 Lipase 34 units/L (13-60) 04/04/17 17:14 - Imaging and Cardiology Chest x-ray: image reviewed (surgical plates noted otherwise no acute pathology)
[2017-04-05] MEDS: PERCOCET 5/325 PO PRN (17:09)
[2017-04-05] MEDS: LOVENOX SUB-Q SCH (23:00)
--- NOTE | 2017-04-06 00:10 | Treadmill Report ---
NUCLEAR PERFUSION STUDY REASON FOR STUDY: Chest pain. IMAGING PROTOCOL: The patient received 10 mCi of Technetium 99m Tetrofosmin for resting image and 28 mCi of Technetium 99m Tetrofosmin for stress imaging. The imaging for the whole procedure was completed 30-90 minutes following the initial injection of Technetium 99m tetrofosmin. The SPECT imaging in the 180 degree arc was performed in the right anterior oblique projection. Computerized reconstruction of the images was performed for analysis. IMAGING RESULTS: Normal cavity size from stress to rest. Normal distribution of radionuclide in the anterior, inferior, septal, and apical regions. Gated SPECT, EF 64% with no wall motion abnormality. The patient infused Lexiscan with no EKG changes. SUMMARY: 1. Negative Lexiscan EKG. 2. Normal rest and stress myocardial perfusion scan. No significant stress ischemia. No wall motion abnormality. Gated SPECT, ejection fraction 64%. [facility]# [id number] [place]UL[place]/ROEL
[2017-04-06] MEDS: ROBAXIN PO PRN (01:40)
[2017-04-06] MEDS: DILAUDID IV PRN (06:15)
[2017-04-06] MEDS: NOVOLOG SUB-Q SCH ×3 (08:55→20:29)
--- NOTE | 2017-04-06 08:56 | Discharge Summary ---
Providers - Providers Date of Admission: 04/04/17 17:38 Attending physician: LALA CUBA MD 04/05/17 06:45 Consult to Dietitian/Nutrition [CONS] Routine Physician Instructions: supplements Reason For Exam: malnutrition Reason for Consult: Pt needs oral supplement 04/05/17 14:51 Consult to Physician [CONS] Routine Consulting Provider: FLORENTINO AGUAYO Reason For Exam: ABDOMINAL PAIN Place consult to:: Dr. Aguayo Notified:: Karen JUÁREZ Phone number called:: Was contact made?: Yes If yes, spoke with:: [facility] Time called:: 16:00 Occupational Therapy Evaluate and Treat [CONS] Routine Comment: Reason For Exam: DEBILITY Physical Therapy Evaluation and Treat [CONS] Routine Comment: Reason For Exam: DEBILITY Primary care physician: PROJECT GEOLOGIST Hospitalization Condition: Stable Hospital course: Patient is a 66 y/o female with pmh of CAD, CVA, HTN and Gerd comes in for RSCP since last night. Intermittent in nature. Non radiating. No diaphoresis or palpitations. No Sob. Also associated is an epigastric pain that is reproducible. No fever/chills.Pain is 6/10 dull in character.No exacerbating or relieving factors. This is complicated by family dynamics which the daughter reports that the patient is requiring 24- 7 care which they cannot provide at this time. She is markedly lethargic at times. Patients medical records is spotty, appears to have had some medical concerns in the past such as DM but is not on any medications. Will contact family for med recs and also to understand where she has been cared for in the past - Patient Problems (1) Atypical Chest pain Serial cardiac enzymes and Lexiscan are negative LIKELY GERD Will get GI evaluation (2) Chronic Debility * Physical therapy evaluate and treat * case management consult for placement (3) Hypomagnesemia Current Visit: Yes Status: Acute Plan to address problem: Supplemented (4) Hypokalemia Current Visit: Yes Status: Acute Plan to address problem: Supplemented (5) T2DM (type 2 diabetes mellitus) Current Visit: Yes Status: Chronic Qualifiers: Diabetes mellitus complication status: without complication Diabetes mellitus complication detail: D Diabetic retinopathy severity: D Proliferative retinopathy type: P Diabetes mellitus macular edema: D Diabetes mellitus industrial gas fitter helper insulin use: without industrial gas fitter helper use Laterality: L Chronic kidney disease stage: C Qualified Code(s): E11.9 - Type 2 diabetes mellitus without complications Plan to address problem: New onset?? Initiated on Merformin 1 mg po qd plus coverage A1c 7.3 (6) Leukopenia Current Visit: Yes Status: Acute Qualifiers: Leukopenia type: L Neutropenia type: unspecified Qualified Code(s): D70.9 - Neutropenia, unspecified Plan to address problem: Pancytopenia with thrombocytopenia and leukopenia. Monitor (7) CAD (coronary artery disease) Current Visit: Yes Status: Chronic Qualifiers: Coronary Disease-Associated Artery/Lesion type: [place] artery [place] vs. transplanted heart: N Associated angina: with unspecified angina Plan to address problem: Not on any medicines Hold ASA due to thrombocytopena Await record from family (8) History of CVA with residual deficit Current Visit: Yes Status: Chronic (9) Malnutrition Current Visit: Yes Status: Chronic Qualifiers: Malnutrition type: M Protein-calorie malnutrition severity: mild Qualified Code(s): E44.1 - Mild protein-calorie malnutrition Plan to address problem: Albumin 3.8 Dietary supplement ordered (10) DVT prophylaxis Current Visit: Yes Status: Acute Plan to address problem: On Lovenox Disposition: DC/[place]-03 [facility] Time spent for discharge: 35 mins Exam - Constitutional Vitals: Temp Pulse Resp BP Pulse Ox 98.4 F 84 18 134/76 97 04/06/17 04:55 04/06/17 04:55 04/06/17 04:55 04/06/17 04:55 04/06/17 04:55 Plan Activity: advance as tolerated, fall precautions Diet: diabetic Special Instructions: record daily BP diary, record blood sugar diary Follow up with: MIS VIVAS MD [Staff Physician] - 7 Days PRIMARY CARE, [Primary Care Provider] - 3-5 Days Prescriptions: Aspirin [Aspirin BABY CHEW TAB] 81 mg PO QDAY #30 tab.chew Glimepiride [Amaryl] 1 mg PO QDDIAB #30 tablet metFORMIN [Glucophage] 500 mg PO BIDDIAB #30 tablet
[2017-04-06] MEDS: GLUCOPHAGE PO SCH ×2 (08:58→20:29)
[2017-04-06] MEDS: BABY ASPIRIN PO SCH (09:29)
[2017-04-06] MEDS: PEPCID PO SCH (09:30)
--- NOTE | 2017-04-06 10:12 | Gastroenterology Consultation ---
History of Present Illness - Reason for Consult Consult date: 04/06/17 abdominal pain Requesting physician: LALA CUBA - History of Present Illness Patient is a 66 y/o female with a PMH of CAD, CVA, HTN, and GERD who was admitted for CP. Cardiac enzymes and stress test were negative. This morning pt was sitting on the side of the bed with PT. No acute distress noted. States her CP is improving. C/o intermittent epigastric pain, heartburn/regurgitation, and N/V not correlated with eating. Tolerated her breakfast this am with mild nausea but no vomiting. Admits to a hx of PUD over 10 to 15 years ago. On daily ASA. No Fhx of GI cancer. Current smoker. Denies SOB, dizziness, fever, wt loss , dysphagia, odynophagia, hematemesis, melena, diarrhea, constipation, or hematochezia. Past History Past Medical History: CAD, GERD, hypertension, stroke, other (PUD) Past Surgical History: CABG, hysterectomy, Other (pacemaker, cardiac stents) Social history: lives with family, smoking Medications and Allergies Allergies Allergy/AdvReac Type Severity Reaction Status Date / Time No Known Allergies Allergy Verified 01/18/16 23:49 Home Medications Medication Instructions Recorded Confirmed Last Taken Type Pantoprazole [Protonix TAB] 40 mg PO QDAY 03/20/17 04/04/17 04/04/17 History methOCARBAMOL [Robaxin TAB] 500 mg PO Q6H PRN #20 tablet 03/24/17 04/04/1704/04 15:14 Rx Ondansetron [Zofran Odt] 4 mg PO Q8HR PRN #15 tab.rapdis 03/28/17 04/04/1704/04 Rx traMADol [Ultram 50 MG tab] 50 mg PO Q6HR PRN #15 tablet 03/28/17 04/04/1704/04 Rx Aspirin [Aspirin BABY CHEW TAB] 81 mg PO QDAY #30 tab.chew 04/05/17 Unknown Rx Glimepiride [Amaryl] 1 mg PO QDDIAB #30 tablet 04/05/17 Unknown Rx metFORMIN [Glucophage] 500 mg PO BIDDIAB #30 tablet 04/05/17 Unknown Rx Active Meds: Active Medications Acetaminophen (Tylenol) 650 mg PO Q4H PRN PRN Reason: Pain MILD(1-3)/Fever >100.5/BRUNO Aspirin (Baby Aspirin) 162 mg PO QDAY REPLACED BY [facility] Last Admin: 04/06/17 09:29 Dose: 162 mg Bisacodyl (Dulcolax) 10 mg OR QDAY PRN PRN Reason: Constipation unrelieved by MOM Enoxaparin Sodium (Lovenox) 40 mg SUB-Q QDAY@2200 REPLACED BY [facility] Last Admin: 04/05/17 23:00 Dose: 40 mg Famotidine (Pepcid) 20 mg PO BID REPLACED BY [facility] Last Admin: 04/06/17 09:30 Dose: 20 mg Hydromorphone HCl (Dilaudid) 0.5 mg IV Q3H PRN PRN Reason: Pain , Severe (7-10) Last Admin: 04/06/17 06:15 Dose: 0.5 mg Insulin Aspart (Novolog) 0 units SUB-Q ACHS REPLACED BY [facility] PRN Reason: Protocol Last Admin: 04/06/17 08:55 Dose: Not Given Magnesium Hydroxide (Milk Of Magnesia) 30 ml PO Q4H PRN PRN Reason: Constipation Metformin HCl (Glucophage) 500 mg PO BIDDIAB REPLACED BY [facility] Last Admin: 04/06/17 08:58 Dose: 500 mg Methocarbamol (Robaxin) 500 mg PO Q6H PRN PRN Reason: Pain Last Admin: 04/06/17 01:40 Dose: 500 mg Ondansetron HCl (Zofran Odt) 4 mg PO Q8HR PRN PRN Reason: Nausea Ondansetron HCl (Zofran) 4 mg IV Q8H PRN PRN Reason: N/V unrelieved by Reglan Last Admin: 04/06/17 09:28 Dose: 4 mg Oxycodone/Acetaminophen (Percocet 5/325) 1 tab PO Q6H PRN PRN Reason: Pain, Moderate (4-6) Last Admin: 04/05/17 17:09 Dose: 1 tab Pantoprazole Sodium (Protonix) 40 mg PO QDAY REPLACED BY [facility] Last Admin: 04/05/17 11:11 Dose: 40 mg Tramadol HCl (Ultram) 50 mg PO Q6HR PRN PRN Reason: Pain Last Admin: 04/05/17 23:08 Dose: 50 mg Review of Systems - Review of Systems All systems: negative Cardiovascular: chest pain Gastrointestinal: abdominal pain (epigastric), nausea, vomiting, heartburn Exam - Constitutional Vital Signs: Temp Pulse Resp BP Pulse Ox 98.4 F 84 18 128/68 97 04/06/17 04:55 04/06/17 04:55 04/06/17 08:32 04/06/17 08:32 04/06/17 04:55 General appearance: no acute distress, obese - EENT Eyes: PERRL, EOM intact ENT: hearing intact - Neck Neck: supple, normal ROM - Respiratory Respiratory: bilateral: CTA - Cardiovascular Rhythm: regular Heart Sounds: Present: S1 & S2 Extremities: No edema - Gastrointestinal General gastrointestinal: Present: soft, tender (epigastric), non-distended, normal bowel sounds - Integumentary Integumentary: Present: warm, dry - Neurologic Neurological: alert and oriented x3 - Psychiatric Psychiatric: appropriate mood/affect - Labs CBC & Chem 7: 04/04/17 14:13 04/05/17 05:15 Lab Results: Laboratory Results - last 24 hr 04/05/17 04/05/17 04/05/17 13:44 16:48 22:06 POC Glucose 148 H 75 67 L Assessment and Plan 1.epigastric pain 2.atypical CP 3.GERD 4.Hx of PUD -HGB- stable -no active signs of bleeding -cardiac enzymes and stress test negative -continue PPI and supportive care -NPO after MN -will schedule for EGD in am -will follow
[2017-04-06] MEDS: PROTONIX PO SCH (11:12)
[2017-04-06] MEDS: PERCOCET 5/325 PO PRN (16:09)
--- NOTE | 2017-04-06 23:44 | Progress Note ---
Assessment and Plan Assessment and plan: Patient is a 66 y/o female with pmh of CAD, CVA, HTN and Gerd comes in for RSCP since last night. Intermittent in nature. Non radiating. No diaphoresis or palpitations. No Sob. Also associated is an epigastric pain that is reproducible. patient had a stress test that was negative, but continued to have epigastiric pain. GI was consulted and recommended Endoscopy in am to further evaluate GERD This is complicated by family dynamics which the daughter reports that the patient is requiring 24- 7 care which they cannot provide at this time and will rather the patient placed at long-term. Patient was seen by physical therapy and recommended home with home health. Requested records from family and PCP. Atypical chest pain * Negative stress test. Likely GERD GERD * Endoscopy in AM Chronic Debility * PT/OT eval Hypomagnesmia/Hypokalemia * Replaced Diabetes mellitus * A1C 7.3 * Metformin 1mg Po daily started Pancytopenia * Leukopenia and thrombocytopenia. stable. monitor CAD * Still awaiting family records, Hold ASA due to thrombocytopenia Hx of CVA with residual ambulatory deficit * some gait abnormality but with some improvement Mild Malnutrition * Albumin 3.8 DVT/GI propy Disposition- In Am after Endoscopy. History Interval history: Patient seen and examined today and despite negative stress test still complains of epigastric type pain but mildly improved today Hospitalist Physical - Physical exam Narrative exam: VITAL SIGNS: Reviewed. GENERAL: The patient appeared well nourished and normally developed. Otherwise appears uncomfortable Vital signs as documented. HEAD: No signs of head trauma. EYES: Pupils are equal. Extraocular motions intact. EARS: Hearing grossly intact. MOUTH: Oropharynx is normal. NECK: No adenopathy, no JVD. CHEST: Chest with clear breath sounds bilaterally. No wheezes, rales, or rhonchi. CARDIAC: Regular rate and rhythm. S1 and S2, without murmurs, gallops, or rubs. VASCULAR: No Edema. Peripheral pulses normal and equal in all extremities. ABDOMEN: Soft, without detectable tenderness. No sign of distention. No rebound or guarding, and no masses palpated. Bowel Sounds normal. MUSCULOSKELETAL: Reproducible substernal pain. Good range of motion of all major joints. Extremities without clubbing, cyanosis or edema. NEUROLOGIC EXAM: Alert and oriented x 3. No focal sensory or strength deficits. Speech normal. Follows commands. PSYCHIATRIC: Mood anxious. SKIN: No rash or lesions. - Constitutional Vitals: Temp Pulse Resp BP Pulse Ox 98.4 F 74 20 141/84 97 04/06/17 04:55 04/06/17 11:00 04/06/17 12:19 04/06/17 12:19 04/06/17 04:55 General appearance: Present: no acute distress, well-nourished Results - Labs CBC & Chem 7: 04/04/17 14:13 04/05/17 05:15 Labs: Laboratory Last Values WBC 2.0 K/mm3 (4.5-11.0) L 04/04/17 14:13 RBC 4.66 M/mm3 (3.65-5.03) 04/04/17 14:13 Hgb 13.0 gm/dl (10.1-14.3) 04/04/17 14:13 Hct 40.2 % (30.3-42.9) 04/04/17 14:13 MCV 86 fl (79-97) 04/04/17 14:13 MCH 28 pg (28-32) 04/04/17 14:13 MCHC 32 % (30-34) 04/04/17 14:13 RDW 14.5 % (13.2-15.2) 04/04/17 14:13 Plt Count 103 K/mm3 (140-440) L 04/04/17 14:13 Add Manual Diff Complete 04/04/17 14:13 Total Counted 100 04/04/17 14:13 Seg Neuts % (Manual) 56.0 % (40.0-70.0) 04/04/17 14:13 Band Neutrophils % 0 % 04/04/17 14:13 Lymphocytes % (Manual) 39.0 % (13.4-35.0) H 04/04/17 14:13 Reactive Lymphs % (Man) 0 % 04/04/17 14:13 Monocytes % (Manual) 4.0 % (0.0-7.3) 04/04/17 14:13 Eosinophils % (Manual) 1.0 % (0.0-4.3) 04/04/17 14:13 Basophils % (Manual) 0 % (0.0-1.8) 04/04/17 14:13 Metamyelocytes % 0 % 04/04/17 14:13 Myelocytes % 0 % 04/04/17 14:13 Promyelocytes % 0 % 04/04/17 14:13 Blast Cells % 0 % 04/04/17 14:13 Nucleated RBC % Not Reportable 04/04/17 14:13 Seg Neutrophils # Man 1.1 K/mm3 (1.8-7.7) L 04/04/17 14:13 Band Neutrophils # 0.0 K/mm3 04/04/17 14:13 Lymphocytes # (Manual) 0.8 K/mm3 (1.2-5.4) L 04/04/17 14:13 Abs React Lymphs (Man) 0.0 K/mm3 04/04/17 14:13 Monocytes # (Manual) 0.1 K/mm3 (0.0-0.8) 04/04/17 14:13 Eosinophils # (Manual) 0.0 K/mm3 (0.0-0.4) 04/04/17 14:13 Basophils # (Manual) 0.0 K/mm3 (0.0-0.1) 04/04/17 14:13 Metamyelocytes # 0.0 K/mm3 04/04/17 14:13 Myelocytes # 0.0 K/mm3 04/04/17 14:13 Promyelocytes # 0.0 K/mm3 04/04/17 14:13 Blast Cells # 0.0 K/mm3 04/04/17 14:13 WBC Morphology Not Reportable 04/04/17 14:13 Hypersegmented Neuts Not Reportable 04/04/17 14:13 Hyposegmented Neuts Not Reportable 04/04/17 14:13 Hypogranular Neuts Not Reportable 04/04/17 14:13 Smudge Cells Not Reportable 04/04/17 14:13 Toxic Granulation Not Reportable 04/04/17 14:13 Toxic Vacuolation Not Reportable 04/04/17 14:13 Dohle Bodies Not Reportable 04/04/17 14:13 Pelger-Huet Anomaly Not Reportable 04/04/17 14:13 Barrie Rods Not Reportable 04/04/17 14:13 Platelet Estimate Consistent w auto 04/04/17 14:13 Clumped Platelets Not Reportable 04/04/17 14:13 Plt Clumps, EDTA Not Reportable 04/04/17 14:13 Large Platelets Not Reportable 04/04/17 14:13 Giant Platelets Not Reportable 04/04/17 14:13 Platelet Satelliting Not Reportable 04/04/17 14:13 Plt Morphology Comment Not Reportable 04/04/17 14:13 RBC Morphology Not Reportable 04/04/17 14:13 Dimorphic RBCs Not Reportable 04/04/17 14:13 Polychromasia Not Reportable 04/04/17 14:13 Hypochromasia Not Reportable 04/04/17 14:13 Poikilocytosis Not Reportable 04/04/17 14:13 Anisocytosis 1+ 04/04/17 14:13 Microcytosis Not Reportable 04/04/17 14:13 Macrocytosis Not Reportable 04/04/17 14:13 Spherocytes Not Reportable 04/04/17 14:13 Pappenheimer Bodies Not Reportable 04/04/17 14:13 Sickle Cells Not Reportable 04/04/17 14:13 Target Cells Not Reportable 04/04/17 14:13 Tear Drop Cells Not Reportable 04/04/17 14:13 Ovalocytes Not Reportable 04/04/17 14:13 Helmet Cells Not Reportable 04/04/17 14:13 [place] Bodies Not Reportable 04/04/17 14:13 [place] Rings Not Reportable 04/04/17 14:13 [place] Cells Not Reportable 04/04/17 14:13 Bite Cells Not Reportable 04/04/17 14:13 Crenated Cell Not Reportable 04/04/17 14:13 Elliptocytes Not Reportable 04/04/17 14:13 Acanthocytes (Spur) Not Reportable 04/04/17 14:13 Rouleaux Not Reportable 04/04/17 14:13 Hemoglobin C Crystals Not Reportable 04/04/17 14:13 Schistocytes Not Reportable 04/04/17 14:13 Malaria parasites Not Reportable 04/04/17 14:13 Joe Bodies Not Reportable 04/04/17 14:13 Hem Pathologist Commnt No 04/04/17 14:13 Sodium 142 mmol/L (137-145) 04/05/17 05:15 Potassium 3.8 mmol/L (3.6-5.0) 04/05/17 05:15 Chloride 99.1 mmol/L (98-107) 04/05/17 05:15 Carbon Dioxide 26 mmol/L (22-30) 04/05/17 05:15 Anion Gap 21 mmol/L 04/05/17 05:15 BUN 12 mg/dL (7-17) 04/05/17 05:15 Creatinine 0.8 mg/dL (0.7-1.2) 04/05/17 05:15 Estimated GFR > 60 ml/min 04/05/17 05:15 BUN/Creatinine Ratio 15.00 % 04/05/17 05:15 Glucose 123 mg/dL (65-100) H 04/05/17 05:15 POC Glucose 68 (70-105) L 04/06/17 22:23 Hemoglobin A1c 7.3 % (4-6) H 04/04/17 14:13 Calcium 9.2 mg/dL (8.4-10.2) 04/05/17 05:15 Magnesium 1.10 mg/dL (1.7-2.3) L 04/04/17 17:14 Total Bilirubin 0.60 mg/dL (0.1-1.2) 04/05/17 05:15 Direct Bilirubin 0.3 mg/dL (0-0.2) H 04/04/17 14:13 Indirect Bilirubin 0.5 mg/dL 04/04/17 14:13 AST 24 units/L (5-40) 04/05/17 05:15 ALT 18 units/L (7-56) 04/05/17 05:15 Alkaline Phosphatase 108 units/L (35-129) 04/05/17 05:15 Total Creatine Kinase 105 units/L (30-135) 04/05/17 05:16 CK-MB (CK-2) 3.2 ng/mL (0.0-4.0) 04/05/17 05:16 CK-MB (CK-2) Rel Index 3.0 (0-4) 04/05/17 05:16 Troponin T 0.012 ng/mL (0.00-0.029) 04/05/17 05:16 Total Protein 7.2 g/dL (6.3-8.2) 04/05/17 05:15 Albumin 3.5 g/dL (3.9-5) L 04/05/17 05:15 Albumin/Globulin Ratio 0.9 % 04/05/17 05:15 Lipase 34 units/L (13-60) 04/04/17 17:14
[2017-04-07] MEDS: LOVENOX SUB-Q SCH (00:38)
[2017-04-07] MEDS: NOVOLOG SUB-Q SCH (00:38)
[2017-04-07] MEDS: PEPCID PO SCH (00:38)
[2017-04-07] MEDS: DILAUDID IV PRN (02:18)
[2017-04-07 06:03] LABS: INR 1.13 (0.87-1.13)
--- NOTE | 2017-04-07 08:51 | Progress Note ---
Assessment and Plan Assessment and plan: Patient is a 66 y/o female with pmh of CAD, CVA, HTN and Gerd comes in for RSCP since last night. Intermittent in nature. Non radiating. No diaphoresis or palpitations. No Sob. Also associated is an epigastric pain that is reproducible. patient had a stress test that was negative, but continued to have epigastiric pain. GI was consulted and recommended Endoscopy in am to further evaluate GERD This is complicated by family dynamics which the daughter reports that the patient is requiring 24- 7 care which they cannot provide at this time and will rather the patient placed [facility]. Patient was seen by physical therapy and recommended home with home health. Requested records from family and PCP. Atypical chest pain * Negative stress test. Likely GERD GERD * Endoscopy today Chronic Debility * PT/OT eval Hypomagnesmia/Hypokalemia * Replaced Diabetes mellitus * A1C 7.3 * Metformin 1mg Po daily started Pancytopenia * Leukopenia and thrombocytopenia. stable. monitor CAD * Still awaiting family records, Hold ASA due to thrombocytopenia Hx of CVA with residual ambulatory deficit * some gait abnormality but with some improvement Mild Malnutrition * Albumin 3.8 DVT/GI propy Disposition- In Am after Endoscopy. History Interval history: Patient seen and examined today, chest pain resolved. plan for EGD- ok to proceed. stress is negative. Hospitalist Physical - Physical exam Narrative exam: VITAL SIGNS: Reviewed. GENERAL: The patient appeared well nourished and normally developed. Otherwise appears uncomfortable Vital signs as documented. HEAD: No signs of head trauma. EYES: Pupils are equal. Extraocular motions intact. EARS: Hearing grossly intact. MOUTH: Oropharynx is normal. NECK: No adenopathy, no JVD. CHEST: Chest with clear breath sounds bilaterally. No wheezes, rales, or rhonchi. CARDIAC: Regular rate and rhythm. S1 and S2, without murmurs, gallops, or rubs. VASCULAR: No Edema. Peripheral pulses normal and equal in all extremities. ABDOMEN: Soft, without detectable tenderness. No sign of distention. No rebound or guarding, and no masses palpated. Bowel Sounds normal. MUSCULOSKELETAL: Reproducible substernal pain. Good range of motion of all major joints. Extremities without clubbing, cyanosis or edema. NEUROLOGIC EXAM: Alert and oriented x 3. No focal sensory or strength deficits. Speech normal. Follows commands. PSYCHIATRIC: Mood anxious. SKIN: No rash or lesions. - Constitutional Vitals: Temp Pulse Resp BP Pulse Ox 98.4 F 74 20 141/84 97 04/06/17 04:55 04/06/17 11:00 04/06/17 12:19 04/06/17 12:19 04/06/17 04:55 General appearance: Present: no acute distress, well-nourished Results - Labs CBC & Chem 7: 04/04/17 14:13 04/05/17 05:15 Labs: Laboratory Last Values WBC 2.0 K/mm3 (4.5-11.0) L 04/04/17 14:13 RBC 4.66 M/mm3 (3.65-5.03) 04/04/17 14:13 Hgb 13.0 gm/dl (10.1-14.3) 04/04/17 14:13 Hct 40.2 % (30.3-42.9) 04/04/17 14:13 MCV 86 fl (79-97) 04/04/17 14:13 MCH 28 pg (28-32) 04/04/17 14:13 MCHC 32 % (30-34) 04/04/17 14:13 RDW 14.5 % (13.2-15.2) 04/04/17 14:13 Plt Count 103 K/mm3 (140-440) L 04/04/17 14:13 Add Manual Diff Complete 04/04/17 14:13 Total Counted 100 04/04/17 14:13 Seg Neuts % (Manual) 56.0 % (40.0-70.0) 04/04/17 14:13 Band Neutrophils % 0 % 04/04/17 14:13 Lymphocytes % (Manual) 39.0 % (13.4-35.0) H 04/04/17 14:13 Reactive Lymphs % (Man) 0 % 04/04/17 14:13 Monocytes % (Manual) 4.0 % (0.0-7.3) 04/04/17 14:13 Eosinophils % (Manual) 1.0 % (0.0-4.3) 04/04/17 14:13 Basophils % (Manual) 0 % (0.0-1.8) 04/04/17 14:13 Metamyelocytes % 0 % 04/04/17 14:13 Myelocytes % 0 % 04/04/17 14:13 Promyelocytes % 0 % 04/04/17 14:13 Blast Cells % 0 % 04/04/17 14:13 Nucleated RBC % Not Reportable 04/04/17 14:13 Seg Neutrophils # Man 1.1 K/mm3 (1.8-7.7) L 04/04/17 14:13 Band Neutrophils # 0.0 K/mm3 04/04/17 14:13 Lymphocytes # (Manual) 0.8 K/mm3 (1.2-5.4) L 04/04/17 14:13 Abs React Lymphs (Man) 0.0 K/mm3 04/04/17 14:13 Monocytes # (Manual) 0.1 K/mm3 (0.0-0.8) 04/04/17 14:13 Eosinophils # (Manual) 0.0 K/mm3 (0.0-0.4) 04/04/17 14:13 Basophils # (Manual) 0.0 K/mm3 (0.0-0.1) 04/04/17 14:13 Metamyelocytes # 0.0 K/mm3 04/04/17 14:13 Myelocytes # 0.0 K/mm3 04/04/17 14:13 Promyelocytes # 0.0 K/mm3 04/04/17 14:13 Blast Cells # 0.0 K/mm3 04/04/17 14:13 WBC Morphology Not Reportable 04/04/17 14:13 Hypersegmented Neuts Not Reportable 04/04/17 14:13 Hyposegmented Neuts Not Reportable 04/04/17 14:13 Hypogranular Neuts Not Reportable 04/04/17 14:13 Smudge Cells Not Reportable 04/04/17 14:13 Toxic Granulation Not Reportable 04/04/17 14:13 Toxic Vacuolation Not Reportable 04/04/17 14:13 Dohle Bodies Not Reportable 04/04/17 14:13 Pelger-Huet Anomaly Not Reportable 04/04/17 14:13 Barrie Rods Not Reportable 04/04/17 14:13 Platelet Estimate Consistent w auto 04/04/17 14:13 Clumped Platelets Not Reportable 04/04/17 14:13 Plt Clumps, EDTA Not Reportable 04/04/17 14:13 Large Platelets Not Reportable 04/04/17 14:13 Giant Platelets Not Reportable 04/04/17 14:13 Platelet Satelliting Not Reportable 04/04/17 14:13 Plt Morphology Comment Not Reportable 04/04/17 14:13 RBC Morphology Not Reportable 04/04/17 14:13 Dimorphic RBCs Not Reportable 04/04/17 14:13 Polychromasia Not Reportable 04/04/17 14:13 Hypochromasia Not Reportable 04/04/17 14:13 Poikilocytosis Not Reportable 04/04/17 14:13 Anisocytosis 1+ 04/04/17 14:13 Microcytosis Not Reportable 04/04/17 14:13 Macrocytosis Not Reportable 04/04/17 14:13 Spherocytes Not Reportable 04/04/17 14:13 Pappenheimer Bodies Not Reportable 04/04/17 14:13 Sickle Cells Not Reportable 04/04/17 14:13 Target Cells Not Reportable 04/04/17 14:13 Tear Drop Cells Not Reportable 04/04/17 14:13 Ovalocytes Not Reportable 04/04/17 14:13 Helmet Cells Not Reportable 04/04/17 14:13 Uriarte-[place] Bodies Not Reportable 04/04/17 14:13 [place] Rings Not Reportable 04/04/17 14:13 [place] Cells Not Reportable 04/04/17 14:13 Bite Cells Not Reportable 04/04/17 14:13 Crenated Cell Not Reportable 04/04/17 14:13 Elliptocytes Not Reportable 04/04/17 14:13 Acanthocytes (Spur) Not Reportable 04/04/17 14:13 Rouleaux Not Reportable 04/04/17 14:13 Hemoglobin C Crystals Not Reportable 04/04/17 14:13 Schistocytes Not Reportable 04/04/17 14:13 Malaria parasites Not Reportable 04/04/17 14:13 Joe Bodies Not Reportable 04/04/17 14:13 Hem Pathologist Commnt No 04/04/17 14:13 PT 14.4 Sec. (12.2-14.9) 04/07/17 05:34 INR 1.13 (0.87-1.13) 04/07/17 05:34 Sodium 142 mmol/L (137-145) 04/05/17 05:15 Potassium 3.8 mmol/L (3.6-5.0) 04/05/17 05:15 Chloride 99.1 mmol/L (98-107) 04/05/17 05:15 Carbon Dioxide 26 mmol/L (22-30) 04/05/17 05:15 Anion Gap 21 mmol/L 04/05/17 05:15 BUN 12 mg/dL (7-17) 04/05/17 05:15 Creatinine 0.8 mg/dL (0.7-1.2) 04/05/17 05:15 Estimated GFR > 60 ml/min 04/05/17 05:15 BUN/Creatinine Ratio 15.00 % 04/05/17 05:15 Glucose 123 mg/dL (65-100) H 04/05/17 05:15 POC Glucose 68 (70-105) L 04/06/17 22:23 Hemoglobin A1c 7.3 % (4-6) H 04/04/17 14:13 Calcium 9.2 mg/dL (8.4-10.2) 04/05/17 05:15 Magnesium 1.10 mg/dL (1.7-2.3) L 04/04/17 17:14 Total Bilirubin 0.60 mg/dL (0.1-1.2) 04/05/17 05:15 Direct Bilirubin 0.3 mg/dL (0-0.2) H 04/04/17 14:13 Indirect Bilirubin 0.5 mg/dL 04/04/17 14:13 AST 24 units/L (5-40) 04/05/17 05:15 ALT 18 units/L (7-56) 04/05/17 05:15 Alkaline Phosphatase 108 units/L (35-129) 04/05/17 05:15 Total Creatine Kinase 105 units/L (30-135) 04/05/17 05:16 CK-MB (CK-2) 3.2 ng/mL (0.0-4.0) 04/05/17 05:16 CK-MB (CK-2) Rel Index 3.0 (0-4) 04/05/17 05:16 Troponin T 0.012 ng/mL (0.00-0.029) 04/05/17 05:16 Total Protein 7.2 g/dL (6.3-8.2) 04/05/17 05:15 Albumin 3.5 g/dL (3.9-5) L 04/05/17 05:15 Albumin/Globulin Ratio 0.9 % 04/05/17 05:15 Lipase 34 units/L (13-60) 04/04/17 17:14
--- NOTE | 2017-04-07 08:56 | Discharge Summary ---
Providers - Providers Date of Admission: 04/04/17 17:38 Attending physician: LALA CUBA MD 04/05/17 06:45 Consult to Dietitian/Nutrition [CONS] Routine Physician Instructions: supplements Reason For Exam: malnutrition Reason for Consult: Pt needs oral supplement 04/05/17 14:51 Consult to Physician [CONS] Routine Consulting Provider: FLORENTINO AGUAYO Reason For Exam: ABDOMINAL PAIN Place consult to:: Dr. Aguayo Notified:: Karen JUÁREZ Phone number called:: Was contact made?: Yes If yes, spoke with:: [facility] Time called:: 16:00 Occupational Therapy Evaluate and Treat [CONS] Routine Comment: Reason For Exam: DEBILITY Physical Therapy Evaluation and Treat [CONS] Routine Comment: Reason For Exam: DEBILITY 04/06/17 09:01 Consult to Case Management [CONS] Routine Services Needed at Discharge: Other Notified:: case aide Additional Physician Instructions: snf placement Primary care physician: TOLL OPERATOR Hospitalization Reason for admission: chest pain Condition: Stable Hospital course: Patient is a 66 y/o female with pmh of CAD, CVA, HTN and Gerd comes in for RSCP since last night. Intermittent in nature. Non radiating. No diaphoresis or palpitations. No Sob. Also associated is an epigastric pain that is reproducible. patient had a stress test that was negative, but continued to have epigastiric pain. GI was consulted and recommended Endoscopy in am to further evaluate GERD This is complicated by family dynamics which the daughter reports that the patient is requiring 24- 7 care which they cannot provide at this time [facility] Patient was seen by physical therapy and recommended home with home health. Requested records from family and PCP. Atypical chest pain * Negative stress test. Likely GERD GERD * Endoscopy was done and revealed hiatal hernia and mild gastritis with small ulcer which was biopsied patient will follow up with the biopsy results with the GI doctor and primary care doctor. Gastritis with ulcer Chronic Debility * PT/OT eval Hypomagnesmia/Hypokalemia * Replaced Diabetes mellitus * A1C 7.3 * Metformin 1mg Po daily started. Patient was advised of this diagnosis and also management going forward. Pancytopenia * Leukopenia and thrombocytopenia. stable. monitor CAD * Patient was advised to restart aspirin after discussion with primary care physician. Close monitoring of the pancytopenia. May benefit from hematology evaluation outpatient. This would be arranged by the primary care physician. Hx of CVA with residual ambulatory deficit * some gait abnormality but with some improvement,. Home PT was recommended on discharge. Mild Malnutrition * Albumin 3.8 Disposition: [id number]/[facility] Time spent for discharge: 35 mins Core Measure Documentation - Palliative Care Palliative Care/ Comfort Measures: Not Applicable - Core Measures Any of the following diagnoses?: none - VTE Discharge Requirements Deep Vein Thrombosis/Pulmonary Embolism Present on Admission: No Exam - Physical Exam Narrative exam: VITAL SIGNS: Reviewed. GENERAL: The patient appeared well nourished and normally developed. Otherwise appears uncomfortable Vital signs as documented. HEAD: No signs of head trauma. EYES: Pupils are equal. Extraocular motions intact. EARS: Hearing grossly intact. MOUTH: Oropharynx is normal. NECK: No adenopathy, no JVD. CHEST: Chest with clear breath sounds bilaterally. No wheezes, rales, or rhonchi. CARDIAC: Regular rate and rhythm. S1 and S2, without murmurs, gallops, or rubs. VASCULAR: No Edema. Peripheral pulses normal and equal in all extremities. ABDOMEN: Soft, without detectable tenderness. No sign of distention. No rebound or guarding, and no masses palpated. Bowel Sounds normal. MUSCULOSKELETAL: Reproducible substernal pain. Good range of motion of all major joints. Extremities without clubbing, cyanosis or edema. NEUROLOGIC EXAM: Alert and oriented x 3. No focal sensory or strength deficits. Speech normal. Follows commands. PSYCHIATRIC: Mood anxious. SKIN: No rash or lesions. - Constitutional Vitals: Temp Pulse Resp BP Pulse Ox 98.4 F 74 20 141/84 97 04/06/17 04:55 04/06/17 11:00 04/06/17 12:19 04/06/17 12:19 04/06/17 04:55 Plan Activity: advance as tolerated, fall precautions Diet: low fat Special Instructions: record daily BP diary Follow up with: MIS VIVAS MD [Staff Physician] - 7 Days PRIMARY CARE, [Primary Care Provider] - 3-5 Days Prescriptions: Aspirin [Aspirin BABY CHEW TAB] 81 mg PO QDAY #30 tab.chew Glimepiride [Amaryl] 1 mg PO QDDIAB #30 tablet metFORMIN [Glucophage] 500 mg PO BIDDIAB #30 tablet
--- NOTE | 2017-04-07 11:57 | Anesthesia Consultation ---
Anesthesia Consult and Med Hx Date of service: 04/07/17 - Airway Anesthetic Teeth Evaluation: Edentulous ROM Head & Neck: Adequate Mental/Hyoid Distance: Adequate Mallampati Class: Class II Intubation Access Assessment: Probably Good - Pulmonary Exam CTA: Yes - Cardiac Exam Cardiac Exam: RRR - Pre-Operative Health Status ASA Pre-Surgery Classification: ASA3 Proposed Anesthetic Plan: MAC - Pulmonary Hx Smoking: Yes (cigarette smoker 1 pack a week) Hx Asthma: No COPD: No Hx Pneumonia: No Hx Sleep Apnea: No - Cardiovascular System Hx Hypertension: Yes Hx Coronary Artery Disease: Yes Hx Heart Attack/AMI: Yes (x2) Hx Angina: No Hx Percutaneous Transluminal Coronary Angioplasty (PTCA): No Hx Pacemaker: Yes Hx Internal Defibrillator: No Hx Valvular Heart Disease: No Hx Heart Murmur: No Hx Peripheral Vascular Disease: No - Central Nervous System Hx Seizures: No CVA: Yes (in 2009 and 2010) Hx Psychiatric Problems: Yes - Gastrointestinal Hx Gastroesophageal Reflux Disease: Yes - Endocrine Hx Renal Disease: No Hx End Stage Renal Disease: No Hx Liver Disease: No Hx Non-Insulin Dependent Diabetes: Yes Hx Hypothyroidism: No Hx Hyperthyroidism: No - Hematic Hx Anemia: Yes - Other Systems Hx Alcohol Use: Yes (quit 6 months ago) Hx Cancer: No - Additional Comments Anesthesia Medical History Comments: bypass x3, CVAx2 left sided weakness, stent X1. Coughing and white foam comes up with it.
--- NOTE | 2017-04-07 11:58 | Anesthesia Day of Surgery ---
Anesthesia Day of Surgery - Day of Surgery Patient Examined: Yes Patient H&P Reviewed: Yes Patient is NPO: Yes
[2017-04-07] MEDS ORDERED: NACL 0.9% 1000 ML 1,000 ML IV SCH (12:00)
[2017-04-07] MEDS ORDERED: DIPRIVAN 10 MG/ML IV ONE ×2 (12:55)
--- NOTE | 2017-04-07 13:23 | Post Operative Note ---
Pre-op diagnosis: epigastric pain Findings: EGD: hiatal hernia - irregular z-line (bx's) - mild gastritis w./ small ulcer (bx's) - negative other Procedure: EGD Anesthesia: MAC Surgeon: SHANIA MATTHEWS Estimated blood loss: none Pathology: list Specimen disposition: to lab Condition: stable Disposition: floor
--- NOTE | 2017-04-07 13:24 | Post Anesthesia Evaluation ---
- Post Anesthesia Evaluation Patient Participated: Yes Airway Patent: Yes Stable Respiratory Function: Yes Nausea/Vomiting: No Temp > 96.8F: Yes Pain Manageable: Yes Adequeate Hydration: Yes Anesthesia Complications: No Block Receding Appropriately: Not Applicable Patient on Ventilator: No
[2017-04-07] MEDS ORDERED: NORMODYNE IV ONE (13:40)
[2017-04-07 13:47] VITALS: BP 177/78
[2017-04-07] MEDS ORDERED: WATER FOR IRRIG STERILE IR ONE (14:12)
[2017-04-07] MEDS: ROBAXIN PO PRN (15:57)
--- NOTE | 2017-04-07 17:35 | Operative Report ---
PROCEDURE: EGD with cold biopsies. INDICATION: 1. Epigastric pain. 2. Chest pain. MEDICATIONS: Propofol per FRYER OPERATOR. COMPLICATIONS: None. DESCRIPTION OF PROCEDURE: The patient brought to procedure suite. The patient had the procedure discussed with her at length. All risks, complications, and benefits discussed after which the patient signed for the procedure to be performed. The patient was placed in left lateral decubitus position. Mouth block was placed in the patient's oral cavity. After adequate sedation medication as above, endoscope placed in the mouth and brought to the level of the second portion of duodenum. Retroflexion view performed. The patient's vital signs remained stable throughout the procedure. FINDINGS: There was noted to be a small hiatal hernia at GE junction at 38 cm from the gums. Irregular Z line noted at GE junction 38 cm from the gums. Biopsies were taken and sent to pathology. Remaining esophagus otherwise appeared to be normal. There was a single 5-7 mm white base ulcer noted in the antrum with few erosions. Biopsies were taken and sent to pathology. The remaining stomach otherwise appeared to be normal. Duodenum appeared to be normal. Retroflexion view performed in the stomach showed no other pathology other than noted above. The patient tolerated the procedure well. No complications during the procedure. IMPRESSION: 1. Hiatal hernia. 2. Irregular Z line, biopsies performed. 3. Benign small ulcer with erosions in the antrum. The biopsy performed. 4. Otherwise, normal EGD. RECOMMENDATIONS: 1. Follow up biopsy results. 2. Stool for H pylori, if present treat. 3. PPI daily. 4. Advance diet. 5. Okay to discharge from GI standpoint. JOB# [id number] [facility]
== END 2017-04-07 16:00 | disposition home health service (06) | DRG 392 ==
LOC: ED 13:22 → 4A 17:38
PROVIDERS: ADMIT Internal Medicine; ATTEND Internal Medicine
PROC: 0DB68ZX Excision of Stomach, Via Natural or Artificial Opening Endoscopic, Diagnostic (ICD-10-PCS; principal; 2017-04-07)
DX: K21.9 Gastro-esophageal reflux disease without esophagitis (principal); E44.1 Mild protein-calorie malnutrition; D61.818 Other pancytopenia; I69.354 Hemiplegia and hemiparesis following cerebral infarction affecting left non-dominant side; I25.10 Atherosclerotic heart disease of native coronary artery without angina pectoris; E87.6 Hypokalemia; E83.42 Hypomagnesemia; E11.9 Type 2 diabetes mellitus without complications; K25.9 Gastric ulcer, unspecified as acute or chronic, without hemorrhage or perforation; F32.9 Major depressive disorder, single episode, unspecified; K29.70 Gastritis, unspecified, without bleeding; K44.9 Diaphragmatic hernia without obstruction or gangrene; Z90.710 Acquired absence of both cervix and uterus; Z79.899 Other long term (current) drug therapy; Z95.1 Presence of aortocoronary bypass graft; Z87.11 Personal history of peptic ulcer disease; Z68.34 Body mass index [BMI] 34.0-34.9, adult; F17.210 Nicotine dependence, cigarettes, uncomplicated; I25.2 Old myocardial infarction; Z79.4 Long term (current) use of insulin; Z79.82 Long term (current) use of aspirin
CPT/HCPCS: 36415; 71020; 78452; 80048; 80053; 80074; 82550; 82553; 82962; 83036; 83690; 83735; 84484; 85007; 85025; 85610; 88305; 88342; 93005; 93010; 93017; 96374; 99406; A9502; G8978-GP; G8979-GP; G8987-GO; G8988-GO; J1170; J1650; J2270; J2405; J2704; J2785; J3475; J7030; Q0162